=== PATIENT | male | born 1940 | race Caucasian/White ===

== ENCOUNTER 2016-07-23 11:14 | Inpatient (IN) | payer MEDICARE, BC ==
[2016-07-23] MEDS ORDERED: Piperac/Tazob 3.375 gm in NS* 3.375 GM/100 ML BAG IVPB ONE (11:34)
[2016-07-23 11:49] LABS: Hematocrit 51 % (42-52); Hemoglobin 16.2 g/dl (14.0-18.0); Mean Corpuscular HGB Conc 32 g/dl (31-36); Mean Corpuscular Hemoglobin 28 pg (27-31); Mean Corpuscular Volume 89 fL (80-94); Mean Platelet Volume 9 um3 (7.4-10.4); Red Blood Count 5.74 10^6/ul (4.0-5.4); Red Cell Distribution Width 15 % (10.5-15); White Blood Count 20.1 10^3/ul (3.5-10.8)
[2016-07-23 12:02] LABS: PCO2 Arterial 34 mmHg (35-45)
--- NOTE | 2016-07-23 12:02 | RAD ---
INDICATION: Short of breath COMPARISON: April 01, 2016 TECHNIQUE: An AP portable view obtained at 1130 hours is submitted. FINDINGS: Bones/Soft Tissues: There are no acute bony findings. Cardiomediastinal: The cardiomediastinal silhouette is normal. Lungs: There are no infiltrates. Pleura: There are no pleural effusions. Other: None IMPRESSION: NO ACTIVE DISEASE.
[2016-07-23 12:05] LABS: Albumin 3.8 g/dL (3.2-5.2); BUN/Creatinine Ratio 27.9 (8-20); C Reactive Protein 251.52 mg/L (< 5.00); EGFR African American 74.1 (>60); EGFR Non-African American 57.6 (>60); Potassium 3.2 mmol/L (3.5-5.0); Total Protein 8.8 g/dL (6.4-8.9)
[2016-07-23] MEDS ORDERED: NS 0.9% 1000 ML* 1,000 ML IV SCH (12:15)
[2016-07-23 12:16] LABS: Troponin I 0.08 ng/mL (<0.04)
[2016-07-23] MEDS ORDERED: Vancomycin(*) 1,000 MG in NS 0.9% 250 ML* 250 ML IVPB ONE (12:45)
--- NOTE | 2016-07-23 13:04 | ED ---
Kevan Scherer Adam, scribed for Ronan Dumont MD on 07/23/16 at 1134 . Respiratory - HPI Summary HPI Summary: Pt is a 76 year old male presenting with worsening congestion, cough, and SOB. He is nonverbal and Hx was obtained from pt's daughter as well as EMS. His daughter states that the congestion in his throat and chest has been worsening over the past week. He was seen at [facility] this weekend and his daughter states that he was afebrile and they did not suspect PNA. They discontinued all of his medications (for HTN, Parkinson's, and congestion) except for ASA because he has been having difficulty swallowing them and his daughter would like him to be moving towards more natural remedies. She states that his congestion and breathing were under control over the weekend but over the past 2 days the cough has grown worse and has begun producing thick green sputum. He came to the ED today after visiting Dr. Hackett's office for concerns about the congestion affecting his ability to breathe. EMS reports that the pt was tachycardic en route with o2 sats between 94 and 95. They deny fever. Pt's PMHx includes HTN, DM, Parkinson's, difficulty swallowing, RLS, and RAMIRO. Negative Hx of CHF. - History of Current Complaint Stated Complaint: SHORT OF BREATH Hx Obtained From: Family/Commercial Finance Manager, EMS Hx From Patient Unobtainable Due To: Other - Level 5 Caveat due to nonverbal patient Timing: Constant Initial Severity: Mild Current Severity: Moderate Character: Cough (Productive) Sputum Amount: Moderate Sputum Color: Green Aggravating Factor(s): Nothing Alleviating Factor(s): Nothing Associated Signs and Symptoms: SOB - Allergy/Home Medications Allergies/Adverse Reactions: Allergies Allergy/AdvReac Type Severity Reaction Status Date / Time No Known Allergies Allergy Verified 03/18/14 15:46 PMH/Surg Hx/FS Hx/Imm Hx Endocrine/Hematology History: Denies: Hx Diabetes, Hx Systemic Lupus Erythematosus Cardiovascular History: Reports: Hx Hypertension - mild Denies: Hx Congestive Heart Failure, Hx Pacemaker/ICD GI History: Comment Only: Other GI Disorders - PARKINSONS DISEASE History: Denies: Hx Dialysis, Hx Renal Disease Musculoskeletal History: Reports: Hx Back Problems - prior LB surgery, left him with L foot drop, Other Musculoskeletal History - parkinsons Denies: Hx Rheumatoid Arthritis Sensory History: Denies: Hx Hearing Aid Neurological History: Reports: Other Neuro Impairments/Disorders - parkinsons Psychiatric History: Reports: Hx Depression Denies: Hx Panic Disorder - Cancer History Hx Chemotherapy: No - Surgical History Surgery Procedure, Year, and Place: RIGHT ROTATOR CUFF SURGERY, back surgery in distant past Hx Anesthesia Reactions: No - Immunization History Date of Tetanus Vaccine: unk Date of Influenza Vaccine: unk Infectious Disease History: Denies: Hx Clostridium Difficile, Hx Hepatitis, Hx Human Immunodeficiency Virus (HIV), Hx of Known/Suspected MRSA, Hx Shingles, Hx Tuberculosis, Hx Known/ Suspected VRE, Hx Known/Suspected VRSA, History Other Infectious Disease - Family History Known Family History: Positive: Diabetes - per EMR, brother with positive hx of DM, Other - Per EMR, brother with positive hx of pancreatic CA - Social History Occupation: Retired Lives: With Family - Daughter Alcohol Use: Rare Hx Substance Use: No Substance Use Type: Reports: None Hx Tobacco Use: No Smoking Status (MU): Never Smoked Tobacco Review of Systems Negative: Fever Positive: Shortness Of Breath, Cough All Other Systems Reviewed And Are Negative: No - Comments Additional Review of Systems Comments: Level 5 Caveat due to nonverbal patient Physical Exam - Summary Physical Exam Summary: VITAL SIGNS: Reviewed. GENERAL: Patient is a well developed and nourished male with a chroninc stiff neck and with some distress secondary to the shortness of breath. He seems confused and he is not verbal at this point. He is sitting in a tripod position. HEAD AND FACE: Normocephalic and atraumatic. EYES: PERRLA, EOMI x 2 EARS: Hearing grossly intact. MOUTH: Dry oral mucosa. NECK: Supple, trachea is midline, no adenopathy, no JVD, no carotid bruit. CHEST: Symmetric, No intercostal or abdominal retraction, LUNGS: Diffuse bilateral crackles CVS: RRR,, S1 and S2 present, no murmurs or gallops appreciated. ABDOMEN: Soft, non-tender. No signs of distention. Positive BS. No rebound, no guarding, and no masses palpated. EXTREMITIES: FROM in all major joints, no edema, no cyanosis or clubbing. NEURO: Alert not oriented. (as per radha he has hx of Dementia) SKIN: Dry and warm Triage Information Reviewed: Yes Vital Signs On Initial Exam: Initial Vitals Temp Pulse Resp BP Pulse Ox 98.1 F 94 36 142/96 95 07/23/16 11:52 07/23/16 11:52 07/23/16 11:52 07/23/16 11:52 07/23/16 11:52 Vital Signs Reviewed: Yes Completion Of Physical Exam Limited Due To: Level 5 Diagnostics - Vital Signs Vital Signs Temp Pulse Resp BP Pulse Ox 07/23/16 11:52 98.1 F 94 36 142/96 95 - Laboratory Lab Results: Lab Results 07/23/16 07/23/16 07/23/16 Range/Units 11:32 11:32 11:32 WBC 20.1 H (3.5-10.8) 10^3/ul RBC 5.74 H (4.0-5.4) 10^6/ul Hgb 16.2 (14.0-18.0) g/dl Hct 51 (42-52) % MCV 89 (80-94) fL MCH 28 (27-31) pg MCHC 32 (31-36) g/dl RDW 15 (10.5-15) % Plt Count 374 (150-450) 10^3/ul MPV 9 (7.4-10.4) um3 Neut % (Auto) 90.7 H (38-83) % Lymph % (Auto) 4.4 L (25-47) % [place] % (Auto) 4.6 (1-9) % Eos % (Auto) 0 (0-6) % Baso % (Auto) 0.3 (0-2) % Absolute Neuts (auto) 18.3 H (1.5-7.7) 10^3/ul Absolute Lymphs (auto) 0.9 L (1.0-4.8) 10^3/ul Absolute Monos (auto) 0.9 H (0-0.8) 10^3/ul Absolute Eos (auto) 0 (0-0.6) 10^3/ul Absolute Basos (auto) 0.1 (0-0.2) 10^3/ul Absolute Nucleated RBC 0.03 10^3/ul Nucleated RBC % 0.1 APTT (26.0-36.3) seconds ABG pH (7.35-7.45) ABG pCO2 (35-45) mmHg ABG pO2 (80-100) mmHg ABG HCO3 (19-31) mmol/L ABG O2 Saturation (95-98) % ABG Base Excess (-2.0-2.0) O2 Delivery Device Sodium Pending Potassium 3.2 L (3.5-5.0) mmol/L Chloride 120 H (101-111) mmol/L Carbon Dioxide 28 (22-32) mmol/L Anion Gap Pending BUN 34 H (6-24) mg/dL Creatinine 1.22 H (0.67-1.17) mg/dL Est GFR ( Amer) 74.1 (>60) Est GFR (Non-Af Amer) 57.6 (>60) BUN/Creatinine Ratio 27.9 H (8-20) Glucose 108 H (70-100) mg/dL Lactic Acid 1.6 (0.5-2.0) mmol/L Calcium 10.0 (8.6-10.3) mg/dL Total Bilirubin 1.00 (0.2-1.0) mg/dL AST 61 H (13-39) U/L ALT 48 (7-52) U/L Alkaline Phosphatase 111 H (34-104) U/L Total Creatine Kinase 283 H (10-223) U/L CK-MB (CK-2) Pending Troponin I Pending C-Reactive Protein 251.52 H (< 5.00) mg/L Total Protein 8.8 (6.4-8.9) g/dL Albumin 3.8 (3.2-5.2) g/dL Globulin 5.0 H (2-4) g/dL Albumin/Globulin Ratio 0.8 L (1-3) 07/23/16 07/23/16 Range/Units 11:32 11:37 WBC (3.5-10.8) 10^3/ul RBC (4.0-5.4) 10^6/ul Hgb (14.0-18.0) g/dl Hct (42-52) % MCV (80-94) fL MCH (27-31) pg MCHC (31-36) g/dl RDW (10.5-15) % Plt Count (150-450) 10^3/ul MPV (7.4-10.4) um3 Neut % (Auto) (38-83) % Lymph % (Auto) (25-47) % [place] % (Auto) (1-9) % Eos % (Auto) (0-6) % Baso % (Auto) (0-2) % Absolute Neuts (auto) (1.5-7.7) 10^3/ul Absolute Lymphs (auto) (1.0-4.8) 10^3/ul Absolute Monos (auto) (0-0.8) 10^3/ul Absolute Eos (auto) (0-0.6) 10^3/ul Absolute Basos (auto) (0-0.2) 10^3/ul Absolute Nucleated RBC 10^3/ul Nucleated RBC % APTT 38.2 H (26.0-36.3) seconds ABG pH 7.44 (7.35-7.45) ABG pCO2 34 L (35-45) mmHg ABG pO2 125 H (80-100) mmHg ABG HCO3 24.5 (19-31) mmol/L ABG O2 Saturation 99.3 H (95-98) % ABG Base Excess -0.5 (-2.0-2.0) O2 Delivery Device 5 lnc Sodium Potassium (3.5-5.0) mmol/L Chloride (101-111) mmol/L Carbon Dioxide (22-32) mmol/L Anion Gap BUN (6-24) mg/dL Creatinine (0.67-1.17) mg/dL Est GFR ( Amer) (>60) Est GFR (Non-Af Amer) (>60) BUN/Creatinine Ratio (8-20) Glucose (70-100) mg/dL Lactic Acid (0.5-2.0) mmol/L Calcium (8.6-10.3) mg/dL Total Bilirubin (0.2-1.0) mg/dL AST (13-39) U/L ALT (7-52) U/L Alkaline Phosphatase (34-104) U/L Total Creatine Kinase (10-223) U/L CK-MB (CK-2) Troponin I C-Reactive Protein (< 5.00) mg/L Total Protein (6.4-8.9) g/dL Albumin (3.2-5.2) g/dL Globulin (2-4) g/dL Albumin/Globulin Ratio (1-3) Result Diagrams: 07/23/16 11:32 07/23/16 11:32 Lab Statement: Any lab studies that have been ordered have been reviewed, and results considered in the medical decision making process. - Radiology CXR Radiology Interpretation Completed By: Radiologist - IMPRESSION: NO ACTIVE DISEASE. - EKG 11:17 Cardiac Rate: NL - 99 BPM EKG Rhythm: Sinus Rhythm - Normal EKG Interpretation: No ST elevations, RBBB. - Additional Comments Diagnostic Additional Comments: Troponin I - 0.08 Sodium - 161 Influenza A (Rapid) - Negative Influenza B (Rapid) - Negative Disposition - Course Course Of Treatment: Pt is a 76 year old male presenting with worsening congestion, cough, and SOB. He is nonverbal and Hx was obtained from pt's daughter as well as EMS. His daughter states that the congestion in his throat and chest has been worsening over the past week. He was seen at [place] this weekend and his daughter states that he was afebrile and they did not suspect PNA. They discontinued all of his medications (for HTN, Parkinson's, and congestion) except for ASA because he has been having difficulty swallowing them and his daughter would like him to be moving towards more natural remedies. She states that his congestion and breathing were under control over the weekend but over the past 2 days the cough has grown worse and has begun producing thick green sputum. He came to the ED today after visiting Dr. Hackett's office for concerns about the congestion affecting his ability to breathe. EMS reports that the pt was tachycardic en route with o2 sats between 94 and 95. They deny fever. Pt's PMHx includes HTN, DM, Parkinson's, difficulty swallowing, RLS, and RAMIRO. Negative Hx of CHF. Blood work shows WBC count of 20.1 without bands. ABG shows pH of 7.44, pCO2 of 34, and pO2 of 125. CMP shows potassium of 3.2. Sodium is 161. Therefore the pt will continue with IV fluids. BUN is 34 and creatinine is 1.22, consistent with acute renal insufficiency. CRP is 251.52, BNP is 212. Troponin I is 0.08, therefore we also have to rule out ACS. CXR shows no active disease. EKG shows NSR, 99 BPM, no ST elevations, RBBB. In the ED course we started 2 IV accesses. Pt was placed on environmental monitoring specialist. Pt does not have any exacerbation of CHF and therefore he was hydrated with IV fluids. He was started on Zosyn and Vancomycin since I believe that he has aspiration pneumonitis. The pt also was started with potassium IV seeing as he has hypokalemia. Influenza A and B are negative. The patient contiues to have increased RR, his O2 sat is 100 in non rebreathing mask therfore I discussed my physical exam and findings with Dr. Denny (ICU) who accepted the patient for admission. - Differential Dx - Cardiopulmonary Differential Diagnoses - Cardiopulmonary: Airway Obstruction, Aspiration, Bronchitis, CHF, Hypoxia, Lower Resp Infection, Pulmonary Edema - Diagnoses Provider Diagnoses: Aspiration pneumonitis, Hypernatremia, Elevated troponin, rule out [place], Acute renal failure - Physician Notifications Discussed Care Of Patient With: Dr. Denny (ICU) at 12:45. Patient is accepted for admission. Discharge - Discharge Plan Condition: Improved Disposition: ADMITTED TO [facility] The documentation as recorded by the Kevan pepe Adam accurately reflects the service I personally performed and the decisions made by me, Ronan Dumont MD.
[2016-07-23] MEDS ORDERED: NS 0.9% 1000 ML* 3,000 ML IV ONE (14:25)
[2016-07-23] MEDS ORDERED: fentaNYL* 50 MCG/ML 2 ML VIAL (100 MCG VIAL) ONE ×2 (14:33→14:35)
[2016-07-23] MEDS ORDERED: Propofol* 0 ML ONE (14:33)
[2016-07-23] MEDS: NS 0.9% 1000 ML* 3,000 ML IV ONE ×4 (14:35→16:28)
[2016-07-23] MEDS: KCL 10 MEQ/50 ML IVPREMIX* 10 MEQ/50 ML BAG IV SCH (17:44)
--- NOTE | 2016-07-23 18:28 | HP ---
H&P (Free Text) History and Physical: CRITICAL CARE MEDICINE DATE: 07/23/16 TIME: 1400 PRIMARY CARE PROVIDER: Jarvis Reid REFERRING PROVIDER: Tim REASON/CHIEF COMPLAINT: sob HISTORY OF PRESENT ILLNESS: 76 M with worsening cogestion, cough and sob since weekend. Long h/o parkinson's disease. Seen at [place] on Thursday for same ailments. Daughter explains his Ua was ok, but remembers positive ketones. Did not think he had pna. Brought into ED today and evaluated with significant upeer airway secretions, labored resp, severely dehydrated and placed on HFo2, started on IVF and ccm alerted to care. Pt lethargic and encephalopathic from his baseline coherence and cannot communicate capacity. Daughter is proxy and ED staff was informed of a "do everything" status. Brought up to ICU with plan to intubate due to status and attempted to reach pts daughter who went out to move her car. She re-presented and we discussed my concerns, explaining his condition and plans of care. She refused intubation at the time; she did not beleive he needs the procedures. Again I explained my role, my rationale and she still declined. I attempted further to educate and we discussed supportive care with HFO2 as a DNI then. We discussed my best medcial treatment and medical opinion for need of intubation and all factors involved. Otherwise consider DNI. She refused intubation but also refused placing DNI. We discussed repetitively and respectfully but she couldn't consent either way. Her arrived and discussed as a group. Only consensus was for full code in event of arrest, no urgent intubation right now but maybe later if they are at bedside or maybe if we feel it is needed when they aren't present. I attempted to explain the poor communication and plan of care that this provides. REVIEW OF SYSTEMS: As per HPI. PAST MEDICAL HISTORY: As per HPI. Dementia. RLS MEDICATIONS: Reviewed. ALLERGIES: Reviewed. SOCIAL HISTORY: Reviewed. FAMILY HISTORY: Noncontributory at present. PHYSICAL EXAM: Vital Signs: Reviewed. Neurologic: bradykinesis, expressive aphagia and rigidity HEENT: anicteric, reactive. severe dry mm Cardiovascular: S1 S2 Respiratory: rhonchi b/l but no wheeze; poor excursion. rate in 30s. weak cough Abdomen: paradoxical resp at times and other times just forced exhalation. Extremities: no edema. deconditioning. Access: per LABS: Reviewed. IMAGING: Reviewed. CXR with some diffuse airway disease but no blossumed pna MEDICATIONS: Reviewed. ASSESSMENT: 76 M Acute aspiration pneumonitis Precipitated by perhaps viral or URI. No clear bacterial pna, but empiric treatment. ABG revealing compensation but his wob is too high and metabolic demands remain elevated. Acute hypoxic resp failure Severe dehydrated and needs vascular and cellular volume. Acute renal failure with Cr more the 2x his normal without much muscle mass Hypovolemic hypernatremia. Dysphagia PLAN: Neurologic: tolerable but will need to resume his oupt meds, but cannot at this time due to swallow. Cardiovascular: 6L NS and then can taper to 1/2NS as long as intravascular met. Want to avoid pulm overlaod but need to salvage kidneys. Respiratory: Needs intubation and MV for best advantage to overcome his current ailments given his extraneous wob with pneumonitis that is likely to worsening airspace post hydration, thick secretions and high airway resistance with poor cough and clearance. Have already nt copious secretions. Set up for airway lost as he has poor protection. Granted his baseline is unlikely to be pristine but he is overly vexed at this juncture and VO2 is quite high. ON high flow and can continue at proxy request but medical advocacy is for early intubation. support with nebs as needed. Gastrointestinal: npo. swallow weak. Renal/Metabolic: dry with hypovolemic hypernatremia. Infectious Disease: zosyn and vanco in ed. flu neg. keep zosyn for coverage as of now although more likely not an abx fix. Hematology: concentrated. Endocrine: no role for steroids yet. Musculoskeletal: weak. skin precautions. Psych/Social: as above. Supportive and preventative care as ordered. VTE prophylaxis: heparin Disposition: ICU Code Status: Full presently Critical Care Time: 75min Cliff Denny DO
[2016-07-23] MEDS: NS 0.9% w/ 40 Meq KCL 1000 ML* 1,000 ML IV SCH (19:59)
[2016-07-23] MEDS: Piperac/Tazob 3.375 gm in NS* 3.375 GM/100 ML BAG IVPB SCH (19:59)
[2016-07-23 20:27] LABS: Urine Bilirubin Negative (Negative); Urine Glucose Negative (Negative); Urine Nitrite Negative (Negative)
[2016-07-24] MEDS ORDERED: Lidocaine 2% JELLY* 6 ML JELLY TOPICAL ONE (02:00)
[2016-07-24] MEDS: Piperac/Tazob 3.375 gm in NS* 3.375 GM/100 ML BAG IVPB SCH ×3 (04:34→19:58)
[2016-07-24] MEDS: NS 0.9% w/ 40 Meq KCL 1000 ML* 1,000 ML IV SCH (04:34)
[2016-07-24 05:41] LABS: Hematocrit 34 % (42-52); Hemoglobin 10.7 g/dl (14.0-18.0); Mean Corpuscular HGB Conc 32 g/dl (31-36); Mean Corpuscular Hemoglobin 28 pg (27-31); Mean Corpuscular Volume 90 fL (80-94); Mean Platelet Volume 9 um3 (7.4-10.4); Red Blood Count 3.77 10^6/ul (4.0-5.4); Red Cell Distribution Width 15 % (10.5-15); White Blood Count 17.5 10^3/ul (3.5-10.8)
[2016-07-24 05:55] LABS: Albumin 2.3 g/dL (3.2-5.2); BUN/Creatinine Ratio 31.3 (8-20); Calcium 7.3 mg/dL (8.6-10.3); EGFR African American 115.5 (>60); EGFR Non-African American 89.8 (>60); Globulin 2.9 g/dL (2-4); Magnesium 2.1 mg/dL (1.9-2.7); Phosphorus 3.1 mg/dL (2.5-5.0); Potassium 3.4 mmol/L (3.5-5.0); Total Bilirubin 0.5 mg/dL (0.2-1.0); Total Protein 5.2 g/dL (6.4-8.9)
[2016-07-24] MEDS ORDERED: NS 0.45% IVPB SCH (07:00)
[2016-07-24] MEDS ORDERED: POTASSIUM CHLORIDE IVPB SCH (07:00)
[2016-07-24 09:54] LABS: FIO2 90
[2016-07-24 09:58] LABS: PCO2 Arterial 33 mmHg (35-45)
[2016-07-24] MEDS ORDERED: D5W KCl 40 MEQ 1000 ML* 1,000 ML IV SCH ×2 (10:00)
[2016-07-24] MEDS: D5W KCl 40 MEQ 1000 ML* 1,000 ML IVPB SCH ×2 (11:15→21:02)
--- NOTE | 2016-07-24 11:36 | PN ---
Progress Note - Progress Note Note: CRITICAL CARE MEDICINE DATE: 07/24/16 TIME: 900 SUBJECTIVE: Patient seen and examined. Vapotherm 40lpm 90%. PHYSICAL EXAM: Vital Signs: Reviewed. Neurologic: bradykinesis, expressive aphagia and rigidity still; able to squeeze more consistently with left hand to commands. HEENT: anicteric, reactive. dry mm Cardiovascular: S1 S2 Respiratory: fine dry rales L>R, no wheeze. Still tachynic with rapid shallow resp pattern but with less airway resistance. Abdomen: less forced abd exhalation. nt Extremities: no edema. deconditioned. Access: per LABS: Reviewed. IMAGING: Reviewed. MEDICATIONS: Reviewed. ASSESSMENT: 76 M Acute aspiration pneumonitis Precipitated by perhaps viral or URI. No clear bacterial pna, but empiric treatment. ABG revealing compensation but his wob is still quite high but at least meeting metabolic demands at present. Acute hypoxic resp failure vascular volume better and need to give further cellular water without overloading Acute renal failure better Hypovolemic hypernatremia. Dysphagia PLAN: Neurologic: tolerating but still has a lot of work. still unable to take po rx Cardiovascular: change to D5W and see how he handles. SB with autonomics less but asym. tele. Respiratory: Still with high wob and repeat ABG still showing he is compensating his pH (hyperchloremic acidosis not helping his efforts) but with a component of resp alkalosis sec to thrist, anxiet, pain, or even hypoxic drive. A-a gradient is dismal while he is on 40L at 90% O2. Again explained to pts daughter and her at bedside his dynamics and still advocate intubation needs, but we are supporting the desire for him to thrive with his present support. Gastrointestinal: npo. swallow will remain weak and may eventually need ngt or peg, but I imagine family will resist, but not a necessary discussion yet. sup Renal/Metabolic: Cr more dilute. Some Uout. needs water. replete K and let Cl dissipate. Infectious Disease: zosyn continued for now with cx neg pna. Hematology: diluted. Endocrine: no role for steroids currently. Musculoskeletal: weak. skin precautions. Psych/Social: family at bedside updated. Supportive and preventative care as ordered. VTE prophylaxis: heparin Disposition: ICU Code Status: Full presently Critical Care Time: 35min Cliff Denny DO
[2016-07-24] MEDS: Pantoprazole IV* 40 MG IV SCH (12:05)
[2016-07-24] MEDS: Heparin VIAL(*) 5000 UNITS/ML VIAL (FIVE THOUSAND) SUBCUT SCH ×2 (13:02→22:20)
[2016-07-24] MEDS: Acetaminophen SUPP* 650 MG SUPP PR PRN ×2 (13:03→20:10)
--- NOTE | 2016-07-24 15:19 | PN ---
Progress Note - Progress Note Note: CRITICAL CARE MEDICINE DATE: 07/24/16 TIME: 1500 Pt about the same. More sleepy. Daughter states he is always a heavy sleeper. sats ok and rr tolerable but very low volumes still. Hr with marked shavonne cardia but bp well and does awaken to to tactile and still squeezes hand. Can still try to slowly titrate O2. Bradycardia asym. Still very tenuous position. Daughter at bedside and discussed still current tx. Critical Care Time: 10min FMaicol Denny, DO
[2016-07-25] MEDS: Acetaminophen SUPP* 650 MG SUPP PR PRN ×3 (01:38→20:10)
[2016-07-25] MEDS: Piperac/Tazob 3.375 gm in NS* 3.375 GM/100 ML BAG IVPB SCH ×3 (03:58→19:37)
[2016-07-25] MEDS: Heparin VIAL(*) 5000 UNITS/ML VIAL (FIVE THOUSAND) SUBCUT SCH ×3 (05:47→22:05)
[2016-07-25 06:02] LABS: Hematocrit 34 % (42-52); Hemoglobin 10.7 g/dl (14.0-18.0); Mean Corpuscular HGB Conc 32 g/dl (31-36); Mean Corpuscular Hemoglobin 28 pg (27-31); Mean Corpuscular Volume 89 fL (80-94); Mean Platelet Volume 9 um3 (7.4-10.4); Red Blood Count 3.82 10^6/ul (4.0-5.4); Red Cell Distribution Width 15 % (10.5-15); White Blood Count 16.1 10^3/ul (3.5-10.8)
[2016-07-25 06:18] LABS: Calcium 7.9 mg/dL (8.6-10.3); EGFR African American 120.6 (>60); EGFR Non-African American 93.7 (>60); Magnesium 2.1 mg/dL (1.9-2.7); Phosphorus 2.1 mg/dL (2.5-5.0); Potassium 3.9 mmol/L (3.5-5.0)
[2016-07-25] MEDS: D5W KCl 40 MEQ 1000 ML* 1,000 ML IVPB SCH ×2 (08:06→17:33)
--- NOTE | 2016-07-25 09:49 | PN ---
Progress Note - Progress Note Note: CRITICAL CARE MEDICINE DATE: 07/25/16 TIME: 825 SUBJECTIVE: Patient seen and examined. Vapotherm 40lpm 70%. PHYSICAL EXAM: Vital Signs: Reviewed. Neurologic: bradykinesis, expressive aphasia and rigidity still; squeeze well with left hand to commands. HEENT: anicteric, reactive. mmm now with increased secretions. Cardiovascular: S1 S2 Respiratory: rhonchi b/l, no wheeze. Less tachynic but remains with shallow resp pattern. oral suctioning. Abdomen: soft, nt Extremities: dep ue edema. deconditioned. Access: per LABS: Reviewed. IMAGING: Reviewed. MEDICATIONS: Reviewed. ASSESSMENT: 76 M Acute aspiration pneumonitis Acute hypoxic resp failure Acute renal failure better Hypovolemic hypernatremia. Dysphagia Parkinson's disease PLAN: Neurologic: tolerating. off his meds Cardiovascular: D5W cotinued today. autonmic shavonne stable. Respiratory: wob pace a bit more tolerable but now with moistened secretions remaining with pulm toilet needs. Will continue to remain with airway risk. oral/nt suctioning prn. Can wean flow a bit today and allow him to maintain work. Gastrointestinal: npo still. unlikely to have adequete swallow for some time, but given his current resp status will hold off another day prior to ng, but hopefully if breathing and secretions remain stable into tomorrow, then would anticipate ko feed tube needs and then to have official swallow eval next week. sup Renal/Metabolic: Cr ok. Na improving well. Keep water today. replete K, phos. Infectious Disease: zosyn continued for now with cx neg pna. Hematology: diluted; stable. Endocrine: no role for steroids currently. Musculoskeletal: weak. skin precautions. Psych/Social: will update family; again ICU course likely prolonged from avoidance of ett but continued at present sec to proxy request. Supportive and preventative care as ordered. VTE prophylaxis: heparin Disposition: ICU Code Status: Full presently Critical Care Time: 35min Cliff Denny DO
[2016-07-25] MEDS: Pantoprazole IV* 40 MG IV SCH (12:15)
[2016-07-26] MEDS: Piperac/Tazob 3.375 gm in NS* 3.375 GM/100 ML BAG IVPB SCH ×3 (04:56→19:36)
[2016-07-26] MEDS: D5W KCl 40 MEQ 1000 ML* 1,000 ML IVPB SCH ×2 (04:56→14:22)
[2016-07-26] MEDS: Heparin VIAL(*) 5000 UNITS/ML VIAL (FIVE THOUSAND) SUBCUT SCH ×3 (04:59→22:43)
[2016-07-26 06:01] LABS: BUN/Creatinine Ratio 19.5 (8-20); Calcium 7.9 mg/dL (8.6-10.3); Phosphorus 2.3 mg/dL (2.5-5.0); Potassium 4.3 mmol/L (3.5-5.0)
[2016-07-26] MEDS: Oral Rinse (Biotene)(NF) 237 ML ORAL RINSE BTL MT PRN ×2 (06:14→17:30)
--- NOTE | 2016-07-26 10:55 | PN ---
Progress Note - Progress Note Note: CRITICAL CARE MEDICINE DATE: 07/26/16 TIME: 830 SUBJECTIVE: Patient seen and examined. PHYSICAL EXAM: Vital Signs: Reviewed. Neurologic: stable about his icu baseline HEENT: anicteric, reactive. mmm with secretions Cardiovascular: S1 S2 Respiratory: still with rhonchi b/l, no wheeze. nasal trumpet back in place for nt suction Abdomen: soft, nt Extremities: dep edema. deconditioned. Access: per LABS: Reviewed. IMAGING: Reviewed. MEDICATIONS: Reviewed. ASSESSMENT: 76 M Acute aspiration pneumonitis Acute hypoxic resp failure Acute renal failure better Hypovolemic hypernatremia. Dysphagia Advanced parkinson's disease PLAN: Neurologic: tolerating. but his Parkinsons meds were dcd by pcp and we haven't restarted do to his condition Cardiovascular: D5W continued as is for another day. Respiratory: wob holding. still with copious secretions. weaning O2. will have to work through this. Gastrointestinal: npo. place cor aubrey and start tf. Re-eval swallow on Thursday. ? peg needs. Slow process here and debilitating self with this proxy chosen path. sup Renal/Metabolic: Cr ok. Na improving well. Keep water today. replete K, phos. Infectious Disease: zosyn short course for pna Hematology: stable. Endocrine: no steroids needed Musculoskeletal: weak. skin precautions. Pt Psych/Social: daughter has been updated throughout Supportive and preventative care as ordered. VTE prophylaxis: heparin Disposition: ICU, slow progress Code Status: Full presently Critical Care Time: 30min Cliff Denny DO
--- NOTE | 2016-07-26 12:08 | RAD ---
INDICATION: Nasogastric tube placement. COMPARISON: Comparison is made with a prior chest x-ray study from July 23, 2016. TECHNIQUE: A portable view of the chest was obtained. FINDINGS: There is a nasogastric tube present which projects over the midline over the upper abdomen possibly within a hiatal hernia or in the distal esophagus. The heart is within normal limits in size. The lungs are underinflated. There are small infiltrates at both lung bases which appear new. There is suggestion of trace bilateral pleural effusions. IMPRESSION: 1. NEW BIBASILAR INFILTRATES AND TRACE BILATERAL PLEURAL EFFUSIONS. 2. STATUS POST NASOGASTRIC TUBE PLACEMENT. THE DISTAL PORTION OF THE CATHETER PROJECTS OVER THE MIDLINE IN THE UPPER ABDOMEN POSSIBLY WITHIN THE DISTAL ESOPHAGUS OR WITHIN A HIATAL HERNIA.
[2016-07-26] MEDS: Pantoprazole IV* 40 MG IV SCH (14:56)
[2016-07-26] MEDS: Acetaminophen SUPP* 650 MG SUPP PR PRN (15:40)
[2016-07-26] MEDS: Potassium & Sodium Phos 250MG* = 1 PACKET NG TUBE SCH (21:00)
[2016-07-27] MEDS: D5W KCl 40 MEQ 1000 ML* 1,000 ML IVPB SCH (00:23)
[2016-07-27] MEDS: Morphine INJ* 2 MG/ML 1 ML SYRINGE IV PRN ×3 (02:28→09:09)
[2016-07-27] MEDS: Piperac/Tazob 3.375 gm in NS* 3.375 GM/100 ML BAG IVPB SCH ×3 (04:03→20:09)
[2016-07-27] MEDS: Heparin VIAL(*) 5000 UNITS/ML VIAL (FIVE THOUSAND) SUBCUT SCH ×3 (05:08→20:42)
[2016-07-27 05:49] LABS: Hematocrit 36 % (42-52); Hemoglobin 11.4 g/dl (14.0-18.0); Mean Corpuscular HGB Conc 32 g/dl (31-36); Mean Corpuscular Hemoglobin 28 pg (27-31); Mean Corpuscular Volume 88 fL (80-94); Mean Platelet Volume 9 um3 (7.4-10.4); Red Blood Count 4.07 10^6/ul (4.0-5.4); Red Cell Distribution Width 14 % (10.5-15); White Blood Count 13.9 10^3/ul (3.5-10.8)
[2016-07-27 06:05] LABS: Albumin 2.2 g/dL (3.2-5.2); BUN/Creatinine Ratio 18.1 (8-20); Calcium 7.7 mg/dL (8.6-10.3); EGFR African American 136.1 (>60); EGFR Non-African American 105.9 (>60); Globulin 3.2 g/dL (2-4); Magnesium 1.9 mg/dL (1.9-2.7); Phosphorus 2.2 mg/dL (2.5-5.0); Potassium 3.5 mmol/L (3.5-5.0); Total Bilirubin 0.4 mg/dL (0.2-1.0); Total Protein 5.4 g/dL (6.4-8.9)
[2016-07-27] MEDS ORDERED: Lansoprazole SOLUTAB* 30 MG G TUBE SCH (09:00)
[2016-07-27] MEDS: Potassium & Sodium Phos 250MG* = 1 PACKET NG TUBE SCH (09:04)
[2016-07-27] MEDS: Oral Rinse (Biotene)(NF) 237 ML ORAL RINSE BTL MT PRN (09:26)
[2016-07-27] MEDS ORDERED: Famotidine SUSP* 40 MG/5 ML ORAL.SUSP G TUBE ONE (10:31)
--- NOTE | 2016-07-27 12:02 | PN ---
Critical Care Services: Is unresponsive this AM, which apparently is no change from mental status yesterday. On pip/tazo for presumed pneumonia. Vital Signs: Temp Pulse Resp BP SpO2 FiO2 99.9 F 68 30 173/86 100 50 Physical Exam: Gen:As mentioned. HEENT:Oropharynx clear. No facial assymetry Lungs:clear (!) Cardiac: Reg rhythm Abdomen:Not distended. Extremities:stiff. No cyanosis or edema. Fluid Balance (Past 24 Hours): 07/27/16 06:59 Intake Total 3335 Output Total 1725 Balance +1610 Weight 167 lb Intake: IV Fluids 1216 ABX - ZOSYN D5W with 40 kcl 1216 NS IVPB 1036 ABX - ZOSYN 254 D5W with 40 kcl 782 NS Oral 0 Tube Feeding 963 Tube Feeding Flush Amount 120 Output: Phillip 1725 Other: Date of Last Bowel 07/27/2016 Movement # Bowel Movements 3 Estimated Stool Amount Medium Labs: 07/27/16 07/27/16 05:40 05:40 WBC 13.9 H Hgb 11.4 L Hct 36 L Plt Count 185 Sodium 147 Potassium 3.5 Chloride 124 Carbon Dioxide 19 Anion Gap 4 BUN 13 Creatinine 0.72 Glucose 116 Calcium 7.7 Phosphorus 2.2 Magnesium 1.9 Total Bilirubin 0.40 AST 35 ALT 25 Alkaline Phosphatase 70 Total Protein 5.4 L Albumin 2.2 L Globulin 3.2 Albumin/Globulin Ratio 0.7 L NOTE: Hyperchloremic metabolic acidosis. Studies: Portable CXR: Bibasilar infiltrates. 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 There is a probable aspiration pneumonia, with Klebsiella as a potential source (routine sputum cultures may not be reliable). Thus problem (aspiration pneumonia) is likely to recur, given underlying high risk of aspiration. Plan: Will speak with patient's daughter (health care proxy) about future plan of care.
[2016-07-27] MEDS: Ketorolac INJ* 15 MG/ML 1 ML VIAL IV PUSH PRN (20:42)
[2016-07-28] MEDS: Piperac/Tazob 3.375 gm in NS* 3.375 GM/100 ML BAG IVPB SCH ×3 (04:38→21:14)
[2016-07-28 05:58] LABS: Hematocrit 33 % (42-52); Hemoglobin 10.7 g/dl (14.0-18.0); Mean Corpuscular HGB Conc 32 g/dl (31-36); Mean Corpuscular Hemoglobin 28 pg (27-31); Mean Corpuscular Volume 87 fL (80-94); Mean Platelet Volume 9 um3 (7.4-10.4); Red Blood Count 3.82 10^6/ul (4.0-5.4); Red Cell Distribution Width 14 % (10.5-15); White Blood Count 14.3 10^3/ul (3.5-10.8)
[2016-07-28 06:08] LABS: BUN/Creatinine Ratio 23.1 (8-20); Calcium 7.5 mg/dL (8.6-10.3); EGFR African American 153.2 (>60); EGFR Non-African American 119.1 (>60); Potassium 3.2 mmol/L (3.5-5.0)
--- NOTE | 2016-07-28 08:43 | PN ---
Critical Care Services: No new issues overnight. Has been afebrile, and oxygenation is now adequate on room air. Vital Signs: Temp Pulse Resp BP SpO2 FiO2 98.2 F 56 33 133/56 100 21 Physical Exam: Gen:Patient is severely bradykinetic. Will open eyes to verbal command, but very slowly. HEENT: Breaths with mouth wide open.No facial assymetry Lungs:Clear Abdomen:Not distended Extremities:Warm. No cyanosis or edema. 4+rigidity of all extremities Fluid Balance (Past 24 Hours): 07/28/16 06:59 Intake Total 1804 Output Total 1750 Balance +54 Weight 169 lb Intake: IV Fluids 117 ABX - ZOSYN 117 D5W with 40 kcl IVPB 139 ABX - ZOSYN 139 D5W with 40 kcl Oral Tube Feeding 1088 Tube Feeding Flush Amount 460 Output: Phillip 1750 Other: # Bowel Movements 1 Estimated Stool Amount Small Labs: 07/28/16 07/28/16 05:35 05:35 WBC 14.3 Hgb 10.7 L Hct 33 L Plt Count 184 Sodium 148 H Potassium 3.2 L Chloride 120 H Carbon Dioxide 22 BUN 15 Creatinine 0.65 L Glucose 148 H Calcium 7.5 L NOTE: WBC count was 20.1 on admission. Studies: None today Nutrition: Tube feedings. Impression: 1. Klebsiella pneumonia - improving by clinical measures. 2. Advanced Parkinsons 3. Hyparnatremia/hypokalemia - Doubt hyparadrenal state. Plan: 1. Restart Sinemet () TID via feeding tube. 2. Continue Zosyn for a total of 7-10 days. Can probably switch to oral antibiotic when leukocytosis resolves. 3. Since patient is at risk for recurrent aspiration pneumonia, we should consider oral decontamination - can start with chlorhexidine (nonabsorbable antibiotics also a consideration). 4. Correct hypokalemia with IV KCL 5. Will transfer out of ICU.
[2016-07-28] MEDS: Heparin VIAL(*) 5000 UNITS/ML VIAL (FIVE THOUSAND) SUBCUT SCH ×3 (08:47→21:16)
[2016-07-28] MEDS: Famotidine SUSP* 40 MG/5 ML ORAL.SUSP G TUBE SCH (08:47)
[2016-07-28] MEDS: Ketorolac INJ* 15 MG/ML 1 ML VIAL IV PUSH PRN (08:47)
[2016-07-28] MEDS: KCL 20 MEQ/100 ML IVPREMIX* 20 MEQ/100 ML BAG IV SCH ×2 (08:48→10:24)
[2016-07-28] MEDS: Oral Rinse (Biotene)(NF) 237 ML ORAL RINSE BTL MT PRN (08:48)
[2016-07-28] MEDS ORDERED: Carbidopa/Levodop 25/100 MG TAB(*) G TUBE SCH (09:00)
[2016-07-28] MEDS: Chlorhexidine MOUTHWASH 0.12%* 15 ML UDC TOPICAL SCH ×4 (10:24→20:55)
--- NOTE | 2016-07-28 11:32 | PN ---
Progress Note - Progress Note Note: ADDENDUM: Sinemet has been discontinued because, according to patient's daughter , it wasn't working, and was discontinued about one month prior to admission. Will get neuro evaluation for management options. Will also send ENT consult to evaluate swallowing (which was to be performed just prior to admission).
[2016-07-28 16:21] LABS: PCO2 Arterial 37 mmHg (35-45)
[2016-07-28 20:09] LABS: Hematocrit 36 % (42-52); Hemoglobin 11.2 g/dl (14.0-18.0); Mean Corpuscular HGB Conc 32 g/dl (31-36); Mean Corpuscular Hemoglobin 28 pg (27-31); Mean Corpuscular Volume 88 fL (80-94); Mean Platelet Volume 9 um3 (7.4-10.4); Red Blood Count 4.06 10^6/ul (4.0-5.4); Red Cell Distribution Width 14 % (10.5-15); White Blood Count 13.4 10^3/ul (3.5-10.8)
[2016-07-28 20:11] LABS: PCO2 Arterial 31 mmHg (35-45)
[2016-07-28 20:28] LABS: BUN/Creatinine Ratio 25.4 (8-20); Calcium 7.8 mg/dL (8.6-10.3); EGFR African American 171.3 (>60); EGFR Non-African American 133.2 (>60)
[2016-07-28] MEDS ORDERED: Piperac/Tazob 3.375 gm in NS* 3.375 GM/100 ML BAG IVPB ONE (20:30)
[2016-07-28 20:31] LABS: Potassium 4.4 mmol/L (3.5-5.0)
--- NOTE | 2016-07-28 20:41 | RAD ---
INDICATION: Short of breath COMPARISON: July 26, 2016 TECHNIQUE: An AP portable view obtained at 2039 hours is submitted. FINDINGS: Bones/Soft Tissues: There are no acute bony findings. ] And nasogastric tube coiled in the body the stomach Cardiomediastinal: The cardiomediastinal silhouette is normal. Lungs: There is no focal consolidation. There is a diffuse increase interstitial markings. Pleura: Small bilateral effusions.. Other: None IMPRESSION: MILD DIFFUSE INCREASE IN INTERSTITIAL MARKINGS WITH SMALL BILATERAL PLEURAL EFFUSIONS. THERE MAY BE A COMPONENT OF MILD INTERSTITIAL CONGESTION.
[2016-07-28] MEDS ORDERED: hydrALAZINE IV* 20 MG/ML VIAL ONE (22:18)
[2016-07-28] MEDS: hydrALAZINE IV* 20 MG/ML VIAL IV SLOW PU PRN (22:20)
[2016-07-28 22:46] LABS: FIO2 100
[2016-07-28 22:49] LABS: PCO2 Arterial 28 mmHg (35-45)
--- NOTE | 2016-07-28 23:29 | PN ---
Progress Note - Progress Note Note: Patient transferred from floor back to ICU this evening for hypoxia and increase work of breathing. Patient has been on vapotherm, CXR showed interstitial edema and ABG showed respiratory alkalosis. Patient failed swallow eval and suspect he aspirated during that time which lead to respiratory failure. Harry and Dr. Putnam discussed with daughter, HCP, at length their concern for his respiratory status and recommendation for intubation. We had a conference call with myself, Harry and Dr. Putnam with daugther and her . BiPAP is contraindicated as he cannot safely protect his airway or manage his secretions at this time. The daughter does not want him intubated at this time despite him belly breathing with a rate persistently in the 40s. Oxygenating and ventilating on max settings of vapotherm at this time. We discussed that he will not maintain his respiratory status and we would like to intubate rather than waiting until he goes into cardiac or respiratory arrest. The daughter does not want intubation at this time and would prefer emergent intubation if the situation were to arise. Intubation/ crash cart is outside his room. Plan to get another ABG if he desaturates and will follow up with daughter who is planning to spend the night if intubation becomes more urgent.
--- NOTE | 2016-07-28 23:32 | PN ---
Hospitalist Progress Note Called to bedside at 1900 asked to eval for increased resp rate, patient assessed and noted to have rapid swallow breathing with a rate of 40 breathes per minute, ABG ordered zosyn ordered, and cbc bmp, ICU attending updated and Dr curry notified, tx to icu for vapotherm, explained to family that patient work of breathing is concerning and will require vapotherm if vapotherm is unsuccessful would need bipap or intubation however bipap contraindicated given his aspiration risk, and his loc, explain that if vapotherm did not decrease his WOB would need intubation, family reluctant to intubation at this point, abg shows resp alkalosis, after two hours of vapotherm resp rate still 40 i discusses that intubation is indicated, family does not wish to proceed and they do no not want to sign DNI, explain that if this continues he will most likely stop breathing, family states that if his heart stops or his breathing stops they want life saving interventions such as intubation and cpr, Notified DR casillas and Dr curry about situation, confernce call place with family and dr curry and myself, at this point the plan is to continue vapotherm and to not intubate, the family is aware that the patient can not maintain a rsp rate of 40 and will either suffer resp arrest or cardiac arrest, at which point intubation becomes dangerous they are aware of this risk and accepting of this, their wish is to intubate at an emergent basis only,
[2016-07-29] MEDS: Chlorhexidine MOUTHWASH 0.12%* 15 ML UDC TOPICAL SCH ×6 (01:19→21:40)
[2016-07-29] MEDS: Piperac/Tazob 3.375 gm in NS* 3.375 GM/100 ML BAG IVPB SCH ×3 (04:46→21:45)
[2016-07-29] MEDS: Oral Rinse (Biotene)(NF) 237 ML ORAL RINSE BTL MT PRN (04:46)
[2016-07-29] MEDS: Heparin VIAL(*) 5000 UNITS/ML VIAL (FIVE THOUSAND) SUBCUT SCH ×2 (06:07→13:57)
[2016-07-29 06:38] LABS: Hematocrit 34 % (42-52); Hemoglobin 10.6 g/dl (14.0-18.0); Mean Corpuscular HGB Conc 32 g/dl (31-36); Mean Corpuscular Hemoglobin 28 pg (27-31); Mean Corpuscular Volume 87 fL (80-94); Mean Platelet Volume 9 um3 (7.4-10.4); Red Blood Count 3.85 10^6/ul (4.0-5.4); Red Cell Distribution Width 15 % (10.5-15); White Blood Count 11.3 10^3/ul (3.5-10.8)
[2016-07-29 06:47] LABS: Calcium 7.9 mg/dL (8.6-10.3); EGFR African American 171.3 (>60); EGFR Non-African American 133.2 (>60); Potassium 3.6 mmol/L (3.5-5.0)
[2016-07-29] MEDS: Famotidine SUSP* 40 MG/5 ML ORAL.SUSP G TUBE SCH (08:20)
[2016-07-29] MEDS ORDERED: Magnesium Sulfate 2 GM IV IVPB ONE (09:00)
--- NOTE | 2016-07-29 11:30 | PN ---
Progress Note - Progress Note Note: Patient with progressive supranuclear palsy (PSP) admitted for aspiration pneumonia (Klebsiella), which responded to antibiotic Rx (with Zosyn) - transferred out of the ICU yesterday breathing comfortably on room air, and was readmitted to ICU last night with respiratory distress (RR = 40 and use of accessory muscles) and O2 desaturation. Source of problem most likely aspiration (failed swallowing evaluation yesterday)- it was felt at that time that intubation was the most appropriate intervention, but patient's daughter refused intubation, and also refused to sign a form designating a "do not intubate" order. This AM patient is afebrile, but is tachypneic (RR = 36) and is on high-flow, humidified nasal O2 (Vapotherm ) at 40 L/min, with SpO2 = 97%. there is (and has been) has marked rigidity and bradykinesis, with minimal response to verbal commands. Lungs are (remarkably) clear to auscultation. The major problem in this case is recurrent aspiration, which is a noted consequence of PSP. Unfortunately, there is no effective Rx for PSP, so this problem is unlikely to resolve. Patient has been seen by neurology, and ENT consult is pending. At this point, our management plan is mostly general supportive care, including oral decontamination and frequent NT suctioning. The prognosis is very poor. The patient's daughter has been informed of our evaluation and management plan.
[2016-07-29] MEDS: Ropinirole TAB* 0.5 MG TAB PO SCH ×2 (12:10→22:18)
--- NOTE | 2016-07-29 14:39 | RAD ---
Indication: Bilateral lower extremity swelling with immobility. Duplex Doppler sonography of the deep venous system of both lower extremities was performed. The right common femoral vein, proximal greater saphenous vein, proximal deep femoral vein, femoral vein is noncompressible with echogenic material. This is consistent with deep venous thrombosis. One of the paired peroneal veins in the right lower extremity is also thrombosed. The left common femoral vein, proximal greater saphenous vein, proximal deep femoral vein, femoral vein, popliteal vein, posterior tibial veins and peroneal veins are patent and compressible. The study was technically limited due to patient's body habitus. IMPRESSION: Deep venous thrombosis involving the right lower extremity from the right common femoral vein to the distal femoral vein. The left lower extremity demonstrates no evidence of deep venous thrombosis.
--- NOTE | 2016-07-29 14:52 | PN ---
Progress Note - Progress Note Note: EVIDENCE OF DEEP VEIN THROMBOSIS Because of the possibility that an acute pulmonary embolism was the source of the respiratory deterioration last night, and ultrasound was performed of both lower extremities, and this revealed thrombosis (nonocclusive) of the right common femoral vein. Patient had been receiving thromboprophylaxis with subQ heparin (5,000 units q 8h), and this was changed to full anticoagulation with enoxaparin (1 mg/kg q 12h).
--- NOTE | 2016-07-29 14:53 | CONS ---
NEUROLOGY CONSULTATION NOTE: DATE OF CONSULT: 07/29/16 LOCATION: He is in the intensive care unit, bed 7. REFERRING PHYSICIAN: Dr. Putnam. PRIMARY CARE DOCTOR: Dr. eRid. CHIEF COMPLAINT: Aspiration, parkinsonism. HISTORY OF PRESENT ILLNESS: Hernan Chappell is a 76-year-old man, admitted on 07/23/16, with a possible aspiration pneumonia. He carries a diagnosis of progressive supranuclear palsy and I reviewed one of his last visits with Dr. Aguilera in our office from 10/10/15. The history is otherwise from hospital records and his daughter and also his son-in-law who is present. He has progressively become more immobilized over several years. He was last in the hospital with dehydration and possible aspiration in March. He has been in various rehab facilities and nursing homes, and most recently the family has moved into [facility], where they care for him with multiple family members. In spite of that, he has gradually declined in his mobility and swallowing ability and they had an appointment to see ENT upcoming before this most recent event. He became minimally responsive and so was brought into the emergency room where it was thought that he might have aspiration pneumonia. He had an elevated white blood cell count, but a clear chest x-ray. Over the course of his hospitalization, he has had multiple episodes of compromised respiratory function and he was discharged to the floor within the last couple of days, but had to be readmitted to the ICU last night when he became extremely tachypneic and desaturated. Currently, his respiratory status seems to have stabilized. I spoke with his daughter at length, probably an hour or so all together. She still feels that there must be some therapy that will improve her father's swallowing ability and motor ability and talks about various homeopathic therapies and experimental therapies. He remains full code. We discussed that at some length as well. PAST MEDICAL HISTORY: His past medical history is mainly notable for his parkinsonian dementia complex. He was diagnosed as having progressive supranuclear palsy at [facility] some years ago according to his daughter and from review of one of Dr. Aguilera's last outpatient notes. He has a history of hypertension, hyperlipidemia, prior back surgery. MEDICATIONS: Medications at home were apparently Sinemet CR 50/200 one twice per day, but they were crushing it apparently. He was also on Sinemet 25/100 two tablets three times per day, but he states that they tapered it under the direction of their most recent neurologist Dr. Benz, and it did not really seem to make any difference. If anything, they think that he might have actually functioned a little bit better off it. Current medications consist of; 1. Zosyn. 2. Ropinirole 2 mg per NG tube b.i.d. 3. Toradol 50 mg IV q.8 hours p.r.n. pain. 4. Heparin 5000 units subcu q.8 hours. REVIEW OF SYSTEMS: From the daughter is that he is able to speak at times, but not at other times. She states that he is able to ambulate with assist, but in reading physical therapy outpatient notes from this past March, he was only able to transfer with assist. They deny any recent falls. She feels that his cognition is usually intact, but that is extremely doubtful. PHYSICAL EXAM: He has a dry mouth, but his skin turgor seems normal. Most recent vitals; temperature is 98.4, blood pressure 169/81, heart rate is 66 and regular, respiratory rate is 31. Neurologically, his eyes are straight ahead and unmoving. He closes his eyes and opens some, but not to command. There is no blink response. There is minimal facial movement. There is no gag response and his mouth remains open. He extremity rigidity, worse in the legs. He has bilateral knee contractures and a 90 degrees left ankle contracture. There is occasional mild tremor in the left hand. Wrists, hands, and elbows are held in flexion, but I am able to extend them almost fully. There is no speech and he does not follow any commands. DIAGNOSTIC STUDIES/LAB DATA: I reviewed his MRI scan from 12/21/15, it reveals severe mid brain atrophy as well as global atrophy. 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 He is going to be a constant aspiration risk. I have tried to explain in detail and at length that this is a neurodegenerative condition and that there is no good medical therapy and that he has always been aspiration risk. We talked about resuscitation status and feeding tubes. His daughter kept bringing up alternative therapies and that there must be some other treatment and I explained that there was none that I was aware of that would improve his mobility or decrease his aspiration risk. We spent a good 45 minutes in back and forth question and answers. I discussed my impression with Dr. Putnam. Supportive care will continue, but I do not think there is any medical therapy that is likely to improve his mobility or decrease his aspiration risk. Over 50% of the 60-minute consultation was spent [id number] counseling and education. CC: Dr. Aguilera* [id number]/CPS #: [id number] MTDD
[2016-07-29] MEDS: Enoxaparin(*) 80 MG/0.8 ML SYR SUBCUT SCH (15:28)
[2016-07-29] MEDS: Ketorolac INJ* 15 MG/ML 1 ML VIAL IV PUSH PRN (16:32)
[2016-07-30] MEDS: Chlorhexidine MOUTHWASH 0.12%* 15 ML UDC TOPICAL SCH ×6 (01:45→21:53)
[2016-07-30] MEDS: Enoxaparin(*) 80 MG/0.8 ML SYR SUBCUT SCH ×2 (03:45→14:54)
[2016-07-30] MEDS: Piperac/Tazob 3.375 gm in NS* 3.375 GM/100 ML BAG IVPB SCH ×3 (05:24→21:53)
[2016-07-30 06:04] LABS: Hematocrit 31 % (42-52); Hemoglobin 9.8 g/dl (14.0-18.0); Mean Corpuscular HGB Conc 32 g/dl (31-36); Mean Corpuscular Hemoglobin 28 pg (27-31); Mean Corpuscular Volume 87 fL (80-94); Mean Platelet Volume 9 um3 (7.4-10.4); Red Blood Count 3.51 10^6/ul (4.0-5.4); Red Cell Distribution Width 14 % (10.5-15)
[2016-07-30 06:23] LABS: BUN/Creatinine Ratio 22.8 (8-20); Calcium 7.8 mg/dL (8.6-10.3); EGFR African American 178.3 (>60); EGFR Non-African American 138.6 (>60); Potassium 3.6 mmol/L (3.5-5.0)
--- NOTE | 2016-07-30 08:21 | PN ---
Critical Care Services: Patient now on enoxaparin for DVT right leg, and did well overnight. Less tachypneic this AM. However, he continues to be rigid and poorly responsive ( with little prospect for improvement, considering his neurologic disorder is not treatable). Neurology consult appreciated. Vital Signs: Temp Pulse Resp BP SpO2 FiO2 99.0 F 50 31 142/84 99 40 Physical Exam: Gen:Eyes open but does not respond to verbal commands. HEENT:Mouth wide open and oral mucosa dry. Lungs:occasional coarse rhonchi Cardiac: Reg rhythm Abdomen:Not distended. Extremities: 1+ edema in feet and hands. Neuro:Marked rigidity in all extremities. Fluid Balance (Past 24 Hours): 07/30/16 06:59 Intake Total 365 Output Total 1000 Balance -635 Weight 173 lb Intake: IV Fluids 25 ABX - ZOSYN KCL 25 NS IVPB 320 ABX - ZOSYN 100 KCL 50 NS 170 Tube Feeding Tube Feeding Flush Amount 20 Output: Phillip 1000 Other: Date of Last Bowel 07/29/16 Movement # Bowel Movements 1 Estimated Stool Amount Small NOTE: Admission weight = 167 lbs. Labs: 07/30/16 07/30/16 05:50 05:50 WBC 10.0 Hgb 9.8 Hct 31 Plt Count 203 Sodium 149 Potassium 3.6 Chloride 119 Carbon Dioxide 27 BUN 13 Creatinine 0.57 Glucose 84 Calcium 7.8 L Studies: 12-lead ECG: Sinus rhythm. No acute ST-T wave changes. Nutrition: Jevity 1.2 at 60 cc/hr restarted today. Impression: Appears clinically stable, although heart rate has declined into the 40s (sinus bradycardia). On day 7 of antibiotic therapy for aspiration pneumonia. Is afebrile, and leukocytosis has resolved. Plan: 1. ENT consult pending (for swallowing evaluation). 2. Check procalcitonin: If < 1, then discontinue antibiotic Rx of the pneumonia. 3. Continue tube feedings for now. 4. Taper inhaled O2 as tolerated.
[2016-07-30] MEDS: Famotidine SUSP* 40 MG/5 ML ORAL.SUSP G TUBE SCH (08:46)
[2016-07-31] MEDS: Chlorhexidine MOUTHWASH 0.12%* 15 ML UDC TOPICAL SCH ×6 (00:55→20:41)
[2016-07-31] MEDS: Enoxaparin(*) 80 MG/0.8 ML SYR SUBCUT SCH ×2 (03:10→15:43)
[2016-07-31] MEDS: Piperac/Tazob 3.375 gm in NS* 3.375 GM/100 ML BAG IVPB SCH ×2 (04:45→13:14)
[2016-07-31 06:27] LABS: Hematocrit 31 % (42-52); Hemoglobin 10.1 g/dl (14.0-18.0); Mean Corpuscular HGB Conc 32 g/dl (31-36); Mean Corpuscular Hemoglobin 28 pg (27-31); Mean Corpuscular Volume 87 fL (80-94); Mean Platelet Volume 9 um3 (7.4-10.4); Red Blood Count 3.59 10^6/ul (4.0-5.4); Red Cell Distribution Width 14 % (10.5-15)
[2016-07-31 06:38] LABS: BUN/Creatinine Ratio 24.1 (8-20); Calcium 7.9 mg/dL (8.6-10.3); EGFR African American 174.7 (>60); EGFR Non-African American 135.9 (>60); Potassium 3.4 mmol/L (3.5-5.0)
[2016-07-31] MEDS: Famotidine SUSP* 40 MG/5 ML ORAL.SUSP G TUBE SCH (07:42)
--- NOTE | 2016-07-31 08:11 | RAD ---
Indication: Pneumonia. Single frontal view of the chest performed at 0632 hours was reviewed. Comparison is made with previous exam dated July 28, 2016. Increasing right basilar pneumonia is noted. No pneumothorax is noted. Glenohumeral joint arthritis is noted. IMPRESSION: INCREASING RIGHT BASILAR PNEUMONIA.
[2016-07-31] MEDS: hydrALAZINE IV* 20 MG/ML VIAL IV SLOW PU PRN (11:03)
--- NOTE | 2016-07-31 14:18 | PN ---
Critical Care Services: Clinical condition unchanged, although O2 requirement has decreased (now off the high-flow Vapotherm system). Nurse noted that brownish liquid was suctioned from oropharynx, similar in color to tube feedings. Vital Signs: Temp Pulse Resp BP SpO2 FiO2 98.0 F 61 23 142/65 97 40 Physical Exam: Gen:Eyes open but otherwise is poorly responsive. HEENT: Oropharynx clear. Mucosa dry. Lungs: Occasional coarse rhonchi. No crackles or wheezes. Extremities:No cyanosis. 1+edema Neuro: marked rigidity. Fluid Balance (Past 24 Hours): 07/31/16 06:59 Intake Total 1008 Output Total 1250 Balance -242 Weight 168 lb 6.931 oz Intake: IV Fluids 16 ABX - ZOSYN KCL NS 16 IVPB 310 ABX - ZOSYN 310 KCL NS Tube Feeding 482 Tube Feeding Flush Amount 200 Output: Phillip 1250 Other: Date of Last Bowel 07/30/16 Movement # Bowel Movements 1 Estimated Stool Amount Medium Labs: 07/31/16 07/31/16 05:20 05:20 WBC 9.0 Hgb 10.1 Hct 31 Plt Count 222 Sodium 148 Potassium 3.4 Chloride 118 Carbon Dioxide 26 Anion Gap 4 BUN 14 Creatinine 0.58 Glucose 166 H Procalcitonin 0.1 Studies: cxr: Infiltrate right base, more extensive than in last CXR. Nutrition: Tube feeding with Jevity 1.2 at 60 cc/hr Impression: Apparent aspiration of tube feedings. Plan: 1. Keep head of the bed up at 30 degrees or higher while feeding. 2. I will switch to a concentrated tube feeding (Nepro, 1.8 kcal/ml, almost double the caloric density of the current feeding formula) and reduce the feeding volume.
[2016-07-31] MEDS: Ketorolac INJ* 15 MG/ML 1 ML VIAL IV PUSH PRN (19:32)
[2016-08-01] MEDS: Chlorhexidine MOUTHWASH 0.12%* 15 ML UDC TOPICAL SCH ×5 (01:05→16:15)
[2016-08-01] MEDS: Oral Rinse (Biotene)(NF) 237 ML ORAL RINSE BTL MT PRN ×2 (02:37→16:15)
[2016-08-01] MEDS: Enoxaparin(*) 80 MG/0.8 ML SYR SUBCUT SCH ×2 (03:01→18:43)
[2016-08-01] MEDS: Ketorolac INJ* 15 MG/ML 1 ML VIAL IV PUSH PRN ×2 (04:06→16:15)
[2016-08-01 05:51] LABS: BUN/Creatinine Ratio 29.6 (8-20); Calcium 8.2 mg/dL (8.6-10.3); EGFR African American 189.7 (>60); EGFR Non-African American 147.5 (>60); Potassium 3.5 mmol/L (3.5-5.0)
[2016-08-01] MEDS: Famotidine SUSP* 40 MG/5 ML ORAL.SUSP G TUBE SCH (07:56)
--- NOTE | 2016-08-01 08:34 | RAD ---
INDICATION: Follow-up DVT at the RIGHT common femoral vein. COMPARISON: July 29, 2016 ultrasound. TECHNIQUE: Bray scale, color Doppler, and spectral analysis of the deep veins of the RIGHT lower extremity. Vessel compression, phasicity, and augmentation assessed. REPORT: Extensive RIGHT lower extremity DVT with nonocclusive thrombus within the RIGHT common femoral vein, profunda femoral vein, occlusive thrombus within the entire superficial femoral vein, and nonocclusive thrombus within one of the posterior tibial and one of the peroneal veins. The popliteal and remaining posterior tibial and peroneal veins are grossly patent. Patent great saphenous vein at the saphenous femoral junction. Patency of the contralateral common femoral vein documented. IMPRESSION: No significant change in extensive RIGHT lower extremity DVT with occlusive thrombus involving the entire superficial femoral vein and nonocclusive thrombus extending as far proximal as the common femoral vein.
--- NOTE | 2016-08-01 11:58 | PN ---
Critical Care Services: Clinically stable on nasal O2. Mental status remains poor (does not consistently respond to verbal commands). Has been seen by neurology and ENT, who agree that the patient has an advanced and untreatable neurodegenerative disorder that results is disordered swallowing and predisposes to recurrent pulmonary aspiration. Daughter has been informed of this by both neurology and ENT services, as well as myself. Vital Signs: Temp Pulse Resp BP SpO2 FiO2 98.1 F 62 33 174/75 97 40 Physical Exam: Gen:Eyes open but is unresponsive this AM HEENT:Oropharynx dry. There is a 2x1 cm crusted lesion on right side of the hard palatte Lungs: Occasional coarse rhonchi. Extremities: No cyanosis or edema. Fluid Balance (Past 24 Hours): 08/01/16 06:59 Intake Total 583 Output Total 1175 Balance -592 Weight 168 lb Intake: IV Fluids KCL NS IVPB 100 ABX - ZOSYN 100 KCL NS Oral 0 Tube Feeding 483 Tube Feeding Flush Amount 0 Output: Phillip 1175 Labs: 08/01/16 05:20 Sodium 147 Potassium 3.5 Chloride 114 Carbon Dioxide 28 BUN 16 Creatinine 0.54 L Glucose 114 Calcium 8.2 L Studies: Repeat venous ultrasound of right leg: Extensive thrombosis involving the common and superfifical femoral veins. No change from prior study. Nutrition: Tube feedings with Nepro at 30 cc/hr. Impression: 1. Clinically stable at this time, but overall prognosis is poor. 2. Patient's daughter has been unrealistic in her expectations, despite multiple sources attesting to the advanced nature of the patient's condition and the untreatable aspect of the condition. Consult for swallowing evaluation has been sent. 3. The patient has a DVT in the right leg, which is being treated with enoxaparin (80 mg subQ q 12h). Plan: 1. Will transfer to the floor today. 2. Have ordered a swallowing evaluation.
--- NOTE | 2016-08-01 22:41 | CONS ---
CONSULTATION REPORT: DATE OF CONSULTATION: 08/01/16 HISTORY: I got a call from Dr. Putnam again concerned about his swallowing and the daughter wanting to know what the status is, so I talked to him and his daughter and then I called Speech Therapy. The patient had been initially referred to me for swallowing problems and when he arrived in the office last week, he had what appeared to be a severe aspiration pneumonia and I had Semmes taken by ambulance to the hospital where he was admitted to the intensive care unit with a diagnosis of pneumonia. I then saw him yesterday and he was nonresponsive in the ICU. 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 He is at very high risk for aspiration pneumonia and with patients with progressive neurological disorders, they often will ultimately succumb to an aspiration pneumonia. The daughter was worried that the dry mouth, because he was getting tube feeds, was a concern. They are using toothettes with water. The dry mouth is not a concern, but the most concerning is his inability to swallow. She was wondering whether there is some neurostimulation or stretching that can be done and there is not. If he is responsive enough, he could get a barium swallow; but as far as I could tell, he is not even a candidate for that and when I talked to the Speech Therapy, they had already seen him and confirmed that. They were so worried about him that they had made him n.p.o. earlier in the week. If the daughter is really insistent on him trying to eat and swallow, the decision is really hers and his with the realization that he is at high risk for aspiration pneumonia and if he gets another pneumonia, he might from this. I think my recommendation was the best course of action in terms of this particular problem is if he is stable, transfer him out of the floor, see if Speech Pathology can start working with them, maybe get a barium or Gastrografin swallow if he is stable enough to do that and then make the decision whether he is going to try to eat, try to do thickened liquids, and the Speech pathologist confirmed that he had been on honey thickness with the realization that he is at and will remain at high risk for aspiration pneumonia. [id number]/[facility] #: [id number] LINDA
[2016-08-02] MEDS: Enoxaparin(*) 80 MG/0.8 ML SYR SUBCUT SCH ×2 (05:34→19:17)
[2016-08-02 06:49] LABS: BUN/Creatinine Ratio 34.7 (8-20); Calcium 8.4 mg/dL (8.6-10.3); EGFR African American 212.3 (>60); Potassium 3.6 mmol/L (3.5-5.0)
[2016-08-02] MEDS: Famotidine SUSP* 40 MG/5 ML ORAL.SUSP G TUBE SCH (08:13)
--- NOTE | 2016-08-02 18:44 | PN ---
Subjective Date of Service: 08/02/16 Interval History: Patient does not communicate and is non verbal. Objective Active Medications: Enoxaparin Sodium (Lovenox(*)) 80 mg SUBCUT 0600,1800 [facility] Last Admin: 08/02/16 05:34 Dose: 80 mg Famotidine (Pepcid Susp*) 20 mg G TUBE DAILY [facility] Last Admin: 08/02/16 08:13 Dose: Not Given Hydralazine HCl (Apresoline Iv*) 5 mg IV SLOW PU Q6H PRN PRN Reason: BLOOD PRESSURE Last Admin: 07/31/16 11:03 Dose: 5 mg Lactated Ringer's (Lactated Ringers 1000 Ml Bag*) 1,000 mls @ 75 mls/hr IV PER RATE [facility] Last Admin: 08/02/16 08:05 Dose: 75 mls/hr Multi-Ingredient Mouthwash/Gargle (Biotene Dry Mouth Oral Rinse(Nf)) 15 ml MT Q2H PRN PRN Reason: DRY MOUTH Last Admin: 08/01/16 16:15 Dose: 15 ml Vital Signs 08/01/16 08/01/16 08/01/16 19:36 20:00 23:42 Temperature 97.6 F Pulse Rate 59 66 Respiratory 18 20 24 Rate Blood Pressure 156/80 165/81 (mmHg) O2 Sat by Pulse 100 93 Oximetry 08/02/16 08/02/16 08/02/16 03:13 07:54 08:00 Temperature 97.8 F 98.0 F Pulse Rate 53 67 Respiratory 16 28 Rate Blood Pressure 171/51 186/85 (mmHg) O2 Sat by Pulse 97 98 Oximetry 08/02/16 08/02/16 11:31 15:39 Temperature 99.9 F 99.0 F Pulse Rate 71 70 Respiratory Rate Blood Pressure 163/95 184/89 (mmHg) O2 Sat by Pulse 98 96 Oximetry Oxygen Devices in Use Now: Nasal Cannula Appearance: Elderly gentleman lying in bed in NAD Eyes: No Scleral Icterus Ears/Nose/Mouth/Throat: Mucous Membranes Moist, - - epistaxis Neck: No Thyroid Enlargement, Masses Respiratory: Clear to Auscultation Cardiovascular: - - S1S2 ekta Abdominal: No Hepatosplenomegaly Lymphatic: No Cervical Adenopathy Extremities: No Edema, No Clubbing, Cyanosis Skin: No Rash or Ulcers Neurological: Alert and Oriented x 3 Result Diagrams: 07/31/16 05:20 08/02/16 05:59 Additional Lab and Data: Lab Results 07/23/16 07/23/16 07/23/16 Range/Units 11:32 11:32 11:32 WBC 20.1 H (3.5-10.8) 10^3/ul RBC 5.74 H (4.0-5.4) 10^6/ul Hgb 16.2 (14.0-18.0) g/dl Hct 51 (42-52) % MCV 89 (80-94) fL MCH 28 (27-31) pg MCHC 32 (31-36) g/dl RDW 15 (10.5-15) % Plt Count 374 (150-450) 10^3/ul MPV 9 (7.4-10.4) um3 Neut % (Auto) 90.7 H (38-83) % Lymph % (Auto) 4.4 L (25-47) % [place] % (Auto) 4.6 (1-9) % Eos % (Auto) 0 (0-6) % Baso % (Auto) 0.3 (0-2) % Absolute Neuts (auto) 18.3 H (1.5-7.7) 10^3/ul Absolute Lymphs (auto) 0.9 L (1.0-4.8) 10^3/ul Absolute Monos (auto) 0.9 H (0-0.8) 10^3/ul Absolute Eos (auto) 0 (0-0.6) 10^3/ul Absolute Basos (auto) 0.1 (0-0.2) 10^3/ul Absolute Nucleated RBC 0.03 10^3/ul Nucleated RBC % 0.1 APTT (26.0-36.3) seconds ABG pH (7.35-7.45) ABG pCO2 (35-45) mmHg ABG pO2 (80-100) mmHg ABG HCO3 (19-31) mmol/L ABG O2 Saturation (95-98) % ABG Base Excess (-2.0-2.0) O2 Delivery Device Sodium Pending Potassium 3.2 L (3.5-5.0) mmol/L Chloride 120 H (101-111) mmol/L Carbon Dioxide 28 (22-32) mmol/L Anion Gap Pending BUN 34 H (6-24) mg/dL Creatinine 1.22 H (0.67-1.17) mg/dL Est GFR ( Amer) 74.1 (>60) Est GFR (Non-Af Amer) 57.6 (>60) BUN/Creatinine Ratio 27.9 H (8-20) Glucose 108 H (70-100) mg/dL Lactic Acid 1.6 (0.5-2.0) mmol/L Calcium 10.0 (8.6-10.3) mg/dL Total Bilirubin 1.00 (0.2-1.0) mg/dL AST 61 H (13-39) U/L ALT 48 (7-52) U/L Alkaline Phosphatase 111 H (34-104) U/L Total Creatine Kinase 283 H (10-223) U/L CK-MB (CK-2) Pending Troponin I Pending C-Reactive Protein 251.52 H (< 5.00) mg/L Total Protein 8.8 (6.4-8.9) g/dL Albumin 3.8 (3.2-5.2) g/dL Globulin 5.0 H (2-4) g/dL Albumin/Globulin Ratio 0.8 L (1-3) 07/23/16 07/23/16 Range/Units 11:32 11:37 WBC (3.5-10.8) 10^3/ul RBC (4.0-5.4) 10^6/ul Hgb (14.0-18.0) g/dl Hct (42-52) % MCV (80-94) fL MCH (27-31) pg MCHC (31-36) g/dl RDW (10.5-15) % Plt Count (150-450) 10^3/ul MPV (7.4-10.4) um3 Neut % (Auto) (38-83) % Lymph % (Auto) (25-47) % [place] % (Auto) (1-9) % Eos % (Auto) (0-6) % Baso % (Auto) (0-2) % Absolute Neuts (auto) (1.5-7.7) 10^3/ul Absolute Lymphs (auto) (1.0-4.8) 10^3/ul Absolute Monos (auto) (0-0.8) 10^3/ul Absolute Eos (auto) (0-0.6) 10^3/ul Absolute Basos (auto) (0-0.2) 10^3/ul Absolute Nucleated RBC 10^3/ul Nucleated RBC % APTT 38.2 H (26.0-36.3) seconds ABG pH 7.44 (7.35-7.45) ABG pCO2 34 L (35-45) mmHg ABG pO2 125 H (80-100) mmHg ABG HCO3 24.5 (19-31) mmol/L ABG O2 Saturation 99.3 H (95-98) % ABG Base Excess -0.5 (-2.0-2.0) O2 Delivery Device 5 lnc Sodium Potassium (3.5-5.0) mmol/L Chloride (101-111) mmol/L Carbon Dioxide (22-32) mmol/L Anion Gap BUN (6-24) mg/dL Creatinine (0.67-1.17) mg/dL Est GFR ( Amer) (>60) Est GFR (Non-Af Amer) (>60) BUN/Creatinine Ratio (8-20) Glucose (70-100) mg/dL Lactic Acid (0.5-2.0) mmol/L Calcium (8.6-10.3) mg/dL Total Bilirubin (0.2-1.0) mg/dL AST (13-39) U/L ALT (7-52) U/L Alkaline Phosphatase (34-104) U/L Total Creatine Kinase (10-223) U/L CK-MB (CK-2) Troponin I C-Reactive Protein (< 5.00) mg/L Total Protein (6.4-8.9) g/dL Albumin (3.2-5.2) g/dL Globulin (2-4) g/dL Albumin/Globulin Ratio (1-3) Assess/Plan/Problems-Billing Assessment: 76 year old gentleman admitted with acute hypoxic respiratory failure due to aspiration pneumonia. Patient had NG tube dcd yesterday. - Patient Problems (1) Pneumonia Current Visit: No Status: Acute Priority: High Onset Date: 03/18/14 Code (s): J18.9 - PNEUMONIA, UNSPECIFIED ORGANISM SNOMED Code(s): 005703284 Comment: Patient had hypoxic respiratory failure likely from aspiration pneumonia. Patient has recurrent issues with aspiration and daughter understands this. Despite this she would like to continue pureed foods with thickened liquids. She understands he could aspirate and even but is willing to to accept this. We may try to advance his diet when he wakes up and we clear up his epistaxis. (2) Epistaxis Current Visit: Yes Status: Acute Code(s): R04.0 - EPISTAXIS SNOMED Code(s) : 29501990 Comment: If this does not clear today (It has been a problem apparently througout his hospital course) I will ask ENT for assistance as he is on lovenox for his DVT and controlling it may be very difficult. (3) Progressive supranuclear palsy Current Visit: Yes Status: Acute Code(s): G23.1 - PROGRESSIVE SUPRANUCLEAR OPHTHALMOPLEGIA SNOMED Code(s): 50948193 Comment: This is apparently end stage and unfortunately daughter at times seems to accept this and other times cannot.His prognosis is grave and deteriorating. Will continue discussions with daughter. (4) DVT (deep venous thrombosis) Current Visit: Yes Status: Acute Code(s): I82.409 - ACUTE EMBOLISM AND THOMBOS UNSP DEEP VN UNSP LOWER EXTREMITY SNOMED Code(s): 398793096 Comment: On Lovenox (5) Full code status Current Visit: No Status: Acute Code(s): Z78.9 - OTHER SPECIFIED HEALTH STATUS SNOMED Code(s): 064146361 Comment: This also needs to be readdressed in this very unfortunate situation
[2016-08-03] MEDS: hydrALAZINE IV* 20 MG/ML VIAL IV SLOW PU PRN (00:54)
[2016-08-03] MEDS: Enoxaparin(*) 80 MG/0.8 ML SYR SUBCUT SCH ×2 (05:30→22:01)
[2016-08-03 06:21] LABS: Hematocrit 32 % (42-52); Hemoglobin 10.4 g/dl (14.0-18.0); Mean Corpuscular HGB Conc 33 g/dl (31-36); Mean Corpuscular Hemoglobin 28 pg (27-31); Mean Corpuscular Volume 86 fL (80-94); Mean Platelet Volume 9 um3 (7.4-10.4); Red Cell Distribution Width 14 % (10.5-15); White Blood Count 8.4 10^3/ul (3.5-10.8)
[2016-08-03] MEDS: Famotidine SUSP* 40 MG/5 ML ORAL.SUSP G TUBE SCH (07:55)
--- NOTE | 2016-08-03 19:47 | PN ---
Subjective Date of Service: 08/03/16 Interval History: Patient communicated with grasping my hand. No pain. No SOB. Objective Active Medications: Enoxaparin Sodium (Lovenox(*)) 80 mg SUBCUT 0600,1800 [facility] Last Admin: 08/03/16 05:30 Dose: 80 mg Famotidine (Pepcid Susp*) 20 mg G TUBE DAILY [facility] Last Admin: 08/03/16 07:55 Dose: Not Given Hydralazine HCl (Apresoline Iv*) 5 mg IV SLOW PU Q6H PRN PRN Reason: BLOOD PRESSURE Last Admin: 08/03/16 00:54 Dose: 5 mg Lactated Ringer's (Lactated Ringers 1000 Ml Bag*) 1,000 mls @ 75 mls/hr IV PER RATE [facility] Last Admin: 08/03/16 12:42 Dose: 75 mls/hr Multi-Ingredient Mouthwash/Gargle (Biotene Dry Mouth Oral Rinse(Nf)) 15 ml MT Q2H PRN PRN Reason: DRY MOUTH Last Admin: 08/01/16 16:15 Dose: 15 ml Vital Signs 08/02/16 08/02/16 08/03/16 19:23 20:00 00:00 Temperature 99.3 F Pulse Rate 69 Respiratory 36 Rate Blood Pressure 185/91 197/81 (mmHg) O2 Sat by Pulse 100 Oximetry 08/03/16 08/03/16 08/03/16 00:05 01:49 04:30 Temperature Pulse Rate 61 68 62 Respiratory 30 48 40 Rate Blood Pressure 190/90 164/83 179/83 (mmHg) O2 Sat by Pulse 99 97 94 Oximetry 08/03/16 08/03/16 08/03/16 05:00 05:10 07:40 Temperature Pulse Rate 71 Respiratory 32 34 Rate Blood Pressure 170/88 (mmHg) O2 Sat by Pulse 98 100 Oximetry 08/03/16 08/03/16 08/03/16 08:00 11:48 16:19 Temperature 97.2 F 98.7 F Pulse Rate 70 77 Respiratory 34 16 Rate Blood Pressure 157/78 182/95 (mmHg) O2 Sat by Pulse 93 99 Oximetry Oxygen Devices in Use Now: Nasal Cannula Appearance: Elderly man lying in bed in NAD Eyes: No Scleral Icterus Ears/Nose/Mouth/Throat: Clear Oropharnyx, - - Dried blood in Nares Neck: No Thyroid Enlargement, Masses Respiratory: Clear to Auscultation Cardiovascular: - - S1S2 ekta Abdominal: NL Sounds; No Tenderness; No Distention, No Hepatosplenomegaly Lymphatic: No Cervical Adenopathy Extremities: No Clubbing, Cyanosis Skin: No Rash or Ulcers Neurological: - - Alert but non verbal Result Diagrams: 08/03/16 05:50 08/02/16 05:59 Additional Lab and Data: Lab Results 07/23/16 07/23/16 07/23/16 Range/Units 11:32 11:32 11:32 WBC 20.1 H (3.5-10.8) 10^3/ul RBC 5.74 H (4.0-5.4) 10^6/ul Hgb 16.2 (14.0-18.0) g/dl Hct 51 (42-52) % MCV 89 (80-94) fL MCH 28 (27-31) pg MCHC 32 (31-36) g/dl RDW 15 (10.5-15) % Plt Count 374 (150-450) 10^3/ul MPV 9 (7.4-10.4) um3 Neut % (Auto) 90.7 H (38-83) % Lymph % (Auto) 4.4 L (25-47) % [place] % (Auto) 4.6 (1-9) % Eos % (Auto) 0 (0-6) % Baso % (Auto) 0.3 (0-2) % Absolute Neuts (auto) 18.3 H (1.5-7.7) 10^3/ul Absolute Lymphs (auto) 0.9 L (1.0-4.8) 10^3/ul Absolute Monos (auto) 0.9 H (0-0.8) 10^3/ul Absolute Eos (auto) 0 (0-0.6) 10^3/ul Absolute Basos (auto) 0.1 (0-0.2) 10^3/ul Absolute Nucleated RBC 0.03 10^3/ul Nucleated RBC % 0.1 APTT (26.0-36.3) seconds ABG pH (7.35-7.45) ABG pCO2 (35-45) mmHg ABG pO2 (80-100) mmHg ABG HCO3 (19-31) mmol/L ABG O2 Saturation (95-98) % ABG Base Excess (-2.0-2.0) O2 Delivery Device Sodium Pending Potassium 3.2 L (3.5-5.0) mmol/L Chloride 120 H (101-111) mmol/L Carbon Dioxide 28 (22-32) mmol/L Anion Gap Pending BUN 34 H (6-24) mg/dL Creatinine 1.22 H (0.67-1.17) mg/dL Est GFR ( Amer) 74.1 (>60) Est GFR (Non-Af Amer) 57.6 (>60) BUN/Creatinine Ratio 27.9 H (8-20) Glucose 108 H (70-100) mg/dL Lactic Acid 1.6 (0.5-2.0) mmol/L Calcium 10.0 (8.6-10.3) mg/dL Total Bilirubin 1.00 (0.2-1.0) mg/dL AST 61 H (13-39) U/L ALT 48 (7-52) U/L Alkaline Phosphatase 111 H (34-104) U/L Total Creatine Kinase 283 H (10-223) U/L CK-MB (CK-2) Pending Troponin I Pending C-Reactive Protein 251.52 H (< 5.00) mg/L Total Protein 8.8 (6.4-8.9) g/dL Albumin 3.8 (3.2-5.2) g/dL Globulin 5.0 H (2-4) g/dL Albumin/Globulin Ratio 0.8 L (1-3) 07/23/16 07/23/16 Range/Units 11:32 11:37 WBC (3.5-10.8) 10^3/ul RBC (4.0-5.4) 10^6/ul Hgb (14.0-18.0) g/dl Hct (42-52) % MCV (80-94) fL MCH (27-31) pg MCHC (31-36) g/dl RDW (10.5-15) % Plt Count (150-450) 10^3/ul MPV (7.4-10.4) um3 Neut % (Auto) (38-83) % Lymph % (Auto) (25-47) % [place] % (Auto) (1-9) % Eos % (Auto) (0-6) % Baso % (Auto) (0-2) % Absolute Neuts (auto) (1.5-7.7) 10^3/ul Absolute Lymphs (auto) (1.0-4.8) 10^3/ul Absolute Monos (auto) (0-0.8) 10^3/ul Absolute Eos (auto) (0-0.6) 10^3/ul Absolute Basos (auto) (0-0.2) 10^3/ul Absolute Nucleated RBC 10^3/ul Nucleated RBC % APTT 38.2 H (26.0-36.3) seconds ABG pH 7.44 (7.35-7.45) ABG pCO2 34 L (35-45) mmHg ABG pO2 125 H (80-100) mmHg ABG HCO3 24.5 (19-31) mmol/L ABG O2 Saturation 99.3 H (95-98) % ABG Base Excess -0.5 (-2.0-2.0) O2 Delivery Device 5 lnc Sodium Potassium (3.5-5.0) mmol/L Chloride (101-111) mmol/L Carbon Dioxide (22-32) mmol/L Anion Gap BUN (6-24) mg/dL Creatinine (0.67-1.17) mg/dL Est GFR ( Amer) (>60) Est GFR (Non-Af Amer) (>60) BUN/Creatinine Ratio (8-20) Glucose (70-100) mg/dL Lactic Acid (0.5-2.0) mmol/L Calcium (8.6-10.3) mg/dL Total Bilirubin (0.2-1.0) mg/dL AST (13-39) U/L ALT (7-52) U/L Alkaline Phosphatase (34-104) U/L Total Creatine Kinase (10-223) U/L CK-MB (CK-2) Troponin I C-Reactive Protein (< 5.00) mg/L Total Protein (6.4-8.9) g/dL Albumin (3.2-5.2) g/dL Globulin (2-4) g/dL Albumin/Globulin Ratio (1-3) Assess/Plan/Problems-Billing Assessment: 76 year old gentleman admitted with acute hypoxic respiratory failure due to aspiration pneumonia. Patient had NG tube dcd yesterday. - Patient Problems (1) Pneumonia Current Visit: No Status: Acute Priority: High Onset Date: 03/18/14 Code (s): J18.9 - PNEUMONIA, UNSPECIFIED ORGANISM SNOMED Code(s): 262214405 Comment: Patient had hypoxic respiratory failure likely from aspiration pneumonia. Patient has recurrent issues with aspiration and daughter understands this. Despite this she would like to continue pureed foods with thickened liquids. She understands he could aspirate and even but is willing to to accept this. She wants us to try to advance his diet when he wakes up and we clear up his epistaxis. His epistaxis continues. Would like to place IVC filter to stop lovenox which could stop bleeding. She is considering. She wants another Venous duplex even though it would not alter our recommendation and he just had one. I hesitate to order another study that will not change but daughter is very insistent. (2) Epistaxis Current Visit: Yes Status: Acute Code(s): R04.0 - EPISTAXIS SNOMED Code(s) : 59002152 Comment: See above would like to get filter and dc anticoagulation. (3) Progressive supranuclear palsy Current Visit: Yes Status: Acute Code(s): G23.1 - PROGRESSIVE SUPRANUCLEAR OPHTHALMOPLEGIA SNOMED Code(s): 37150878 Comment: This is apparently end stage and unfortunately daughter at times seems to accept this and other times cannot.His prognosis is grave and deteriorating. Will continue discussions with daughter. (4) DVT (deep venous thrombosis) Current Visit: Yes Status: Acute Code(s): I82.409 - ACUTE EMBOLISM AND THOMBOS UNSP DEEP VN UNSP LOWER EXTREMITY SNOMED Code(s): 321777754 Comment: See above. Would like IVC filter and dc Lovenox (5) Full code status Current Visit: No Status: Acute Code(s): Z78.9 - OTHER SPECIFIED HEALTH STATUS SNOMED Code(s): 842833410 Comment: This also needs to be readdressed in this very unfortunate situation. She wants full code at this time
--- NOTE | 2016-08-03 20:59 | RAD ---
Indication: Follow-up deep venous thrombosis. Duplex Doppler sonography of the deep venous system of right lower extremity was performed. Bilaterally the common femoral veins and right proximal greater saphenous veins appear patent and compressible. There is persistent thrombus the right proximal deep femoral vein, femoral vein. The popliteal vein, posterior tibial veins and peroneal veins appear patent and compressible. IMPRESSION: There is now flow in the right common femoral vein to proximal greater saphenous vein as well as in the popliteal vein, posterior tibial vein and peroneal veins. Persistent deep venous thrombosis of the right femoral vein and proximal deep femoral vein is noted.
[2016-08-04] MEDS: Enoxaparin(*) 80 MG/0.8 ML SYR SUBCUT SCH ×2 (06:16→17:43)
[2016-08-04] MEDS: Famotidine SUSP* 40 MG/5 ML ORAL.SUSP G TUBE SCH (09:01)
[2016-08-04] MEDS: Acetaminophen SUPP* 650 MG SUPP PR PRN (10:40)
[2016-08-04] MEDS ORDERED: cloNIDine 0.1 MG PATCH* 0.1 MG/24 HR 7 DAY PATCH TRANSDERM SCH (13:00)
[2016-08-04] MEDS: hydrALAZINE IV* 20 MG/ML VIAL IV SLOW PU PRN (15:45)
--- NOTE | 2016-08-04 18:46 | PN ---
Subjective Date of Service: 08/04/16 Interval History: Patient non verbal and unable to express needs Long conversation with daughter She is concerned that nobody is taking epistaxis seriously although notes it has stopped She reiterated that her father is a fighter When pressed about goals she did express his interest in being comfortable but that includes being able to eat and perform physical therapy. Daughter has been refusing enoxaparin for known DVT. She was upset because I would not compromise on an alternative dosing of lovenox. Objective Active Medications: Acetaminophen (Tylenol Supp*) 650 mg MD Q6H PRN PRN Reason: PAIN Last Admin: 08/04/16 10:40 Dose: 650 mg Clonidine HCl (Zfuwqvry-Rlp-4 0.1 Mg Patch*) 0.1 mg TRANSDERM Q7D [facility] Last Admin: 08/04/16 13:25 Dose: 1 patch Enoxaparin Sodium (Lovenox(*)) 80 mg SUBCUT 0600,1800 [facility] Last Admin: 08/04/16 17:43 Dose: Not Given Famotidine (Pepcid Susp*) 20 mg G TUBE DAILY [facility] Last Admin: 08/04/16 09:01 Dose: 20 mg Hydralazine HCl (Apresoline Iv*) 5 mg IV SLOW PU Q6H PRN PRN Reason: BLOOD PRESSURE Last Admin: 08/04/16 15:45 Dose: 5 mg Lactated Ringer's (Lactated Ringers 1000 Ml Bag*) 1,000 mls @ 5 mls/hr IV PER RATE [facility] Last Admin: 08/04/16 15:00 Dose: 5 mls/hr Multi-Ingredient Mouthwash/Gargle (Biotene Dry Mouth Oral Rinse(Nf)) 15 ml MT Q2H PRN PRN Reason: DRY MOUTH Last Admin: 08/01/16 16:15 Dose: 15 ml Vital Signs 08/03/16 08/03/16 08/03/16 19:19 20:00 23:26 Temperature 97.7 F Pulse Rate 74 64 Respiratory 30 24 Rate Blood Pressure 186/101 170/84 (mmHg) O2 Sat by Pulse 100 99 Oximetry 08/04/16 08/04/16 08/04/16 03:01 07:31 08:00 Temperature 97.8 F 98.0 F Pulse Rate 73 69 Respiratory 24 20 20 Rate Blood Pressure 164/77 178/90 (mmHg) O2 Sat by Pulse 100 100 Oximetry 08/04/16 08/04/16 12:00 15:30 Temperature Pulse Rate 63 68 Respiratory 18 Rate Blood Pressure 186/97 200/95 (mmHg) O2 Sat by Pulse 98 94 Oximetry Oxygen Devices in Use Now: Simple Face Mask Appearance: NAD Eyes: No Scleral Icterus, PERRLA Ears/Nose/Mouth/Throat: - - left nares packed with gauze, no active bleeding seen in nares nor oropharynx Neck: NL Appearance and Movements; NL JVP, Trachea Midline Respiratory: Symmetrical Chest Expansion and Respiratory Effort, - - rhonchi Cardiovascular: RRR Abdominal: NL Sounds; No Tenderness; No Distention, No Hepatosplenomegaly Lymphatic: No Cervical Adenopathy Extremities: No Edema Neurological: - - Aoxo, cannot follow commands Result Diagrams: 08/03/16 05:50 08/02/16 05:59 Additional Lab and Data: Lab Results 07/23/16 07/23/16 07/23/16 Range/Units 11:32 11:32 11:32 WBC 20.1 H (3.5-10.8) 10^3/ul RBC 5.74 H (4.0-5.4) 10^6/ul Hgb 16.2 (14.0-18.0) g/dl Hct 51 (42-52) % MCV 89 (80-94) fL MCH 28 (27-31) pg MCHC 32 (31-36) g/dl RDW 15 (10.5-15) % Plt Count 374 (150-450) 10^3/ul MPV 9 (7.4-10.4) um3 Neut % (Auto) 90.7 H (38-83) % Lymph % (Auto) 4.4 L (25-47) % [place] % (Auto) 4.6 (1-9) % Eos % (Auto) 0 (0-6) % Baso % (Auto) 0.3 (0-2) % Absolute Neuts (auto) 18.3 H (1.5-7.7) 10^3/ul Absolute Lymphs (auto) 0.9 L (1.0-4.8) 10^3/ul Absolute Monos (auto) 0.9 H (0-0.8) 10^3/ul Absolute Eos (auto) 0 (0-0.6) 10^3/ul Absolute Basos (auto) 0.1 (0-0.2) 10^3/ul Absolute Nucleated RBC 0.03 10^3/ul Nucleated RBC % 0.1 APTT (26.0-36.3) seconds ABG pH (7.35-7.45) ABG pCO2 (35-45) mmHg ABG pO2 (80-100) mmHg ABG HCO3 (19-31) mmol/L ABG O2 Saturation (95-98) % ABG Base Excess (-2.0-2.0) O2 Delivery Device Sodium Pending Potassium 3.2 L (3.5-5.0) mmol/L Chloride 120 H (101-111) mmol/L Carbon Dioxide 28 (22-32) mmol/L Anion Gap Pending BUN 34 H (6-24) mg/dL Creatinine 1.22 H (0.67-1.17) mg/dL Est GFR ( Amer) 74.1 (>60) Est GFR (Non-Af Amer) 57.6 (>60) BUN/Creatinine Ratio 27.9 H (8-20) Glucose 108 H (70-100) mg/dL Lactic Acid 1.6 (0.5-2.0) mmol/L Calcium 10.0 (8.6-10.3) mg/dL Total Bilirubin 1.00 (0.2-1.0) mg/dL AST 61 H (13-39) U/L ALT 48 (7-52) U/L Alkaline Phosphatase 111 H (34-104) U/L Total Creatine Kinase 283 H (10-223) U/L CK-MB (CK-2) Pending Troponin I Pending C-Reactive Protein 251.52 H (< 5.00) mg/L Total Protein 8.8 (6.4-8.9) g/dL Albumin 3.8 (3.2-5.2) g/dL Globulin 5.0 H (2-4) g/dL Albumin/Globulin Ratio 0.8 L (1-3) 07/23/16 07/23/16 Range/Units 11:32 11:37 WBC (3.5-10.8) 10^3/ul RBC (4.0-5.4) 10^6/ul Hgb (14.0-18.0) g/dl Hct (42-52) % MCV (80-94) fL MCH (27-31) pg MCHC (31-36) g/dl RDW (10.5-15) % Plt Count (150-450) 10^3/ul MPV (7.4-10.4) um3 Neut % (Auto) (38-83) % Lymph % (Auto) (25-47) % [place] % (Auto) (1-9) % Eos % (Auto) (0-6) % Baso % (Auto) (0-2) % Absolute Neuts (auto) (1.5-7.7) 10^3/ul Absolute Lymphs (auto) (1.0-4.8) 10^3/ul Absolute Monos (auto) (0-0.8) 10^3/ul Absolute Eos (auto) (0-0.6) 10^3/ul Absolute Basos (auto) (0-0.2) 10^3/ul Absolute Nucleated RBC 10^3/ul Nucleated RBC % APTT 38.2 H (26.0-36.3) seconds ABG pH 7.44 (7.35-7.45) ABG pCO2 34 L (35-45) mmHg ABG pO2 125 H (80-100) mmHg ABG HCO3 24.5 (19-31) mmol/L ABG O2 Saturation 99.3 H (95-98) % ABG Base Excess -0.5 (-2.0-2.0) O2 Delivery Device 5 lnc Sodium Potassium (3.5-5.0) mmol/L Chloride (101-111) mmol/L Carbon Dioxide (22-32) mmol/L Anion Gap BUN (6-24) mg/dL Creatinine (0.67-1.17) mg/dL Est GFR ( Amer) (>60) Est GFR (Non-Af Amer) (>60) BUN/Creatinine Ratio (8-20) Glucose (70-100) mg/dL Lactic Acid (0.5-2.0) mmol/L Calcium (8.6-10.3) mg/dL Total Bilirubin (0.2-1.0) mg/dL AST (13-39) U/L ALT (7-52) U/L Alkaline Phosphatase (34-104) U/L Total Creatine Kinase (10-223) U/L CK-MB (CK-2) Troponin I C-Reactive Protein (< 5.00) mg/L Total Protein (6.4-8.9) g/dL Albumin (3.2-5.2) g/dL Globulin (2-4) g/dL Albumin/Globulin Ratio (1-3) Assess/Plan/Problems-Billing Assessment: 76 year old gentleman admitted with acute hypoxic respiratory failure due to aspiration pneumonia in setting of progressive supranuclear palsy - Patient Problems (1) Progressive supranuclear palsy Comment: prognosis is grave and deteriorating. 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
[2016-08-05] MEDS: Acetaminophen SUPP* 650 MG SUPP PR PRN (00:27)
[2016-08-05] MEDS: Enoxaparin(*) 80 MG/0.8 ML SYR SUBCUT SCH ×2 (07:41→19:32)
[2016-08-05] MEDS: Famotidine SUSP* 40 MG/5 ML ORAL.SUSP G TUBE SCH (12:14)
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
[2016-08-05] MEDS ORDERED: Ketorolac INJ* 15 MG/ML 1 ML VIAL IV PUSH ONE (19:59)
[2016-08-06] MEDS: Enoxaparin(*) 80 MG/0.8 ML SYR SUBCUT SCH (06:03)
[2016-08-06 06:20] LABS: Hematocrit 31 % (42-52); Hemoglobin 10.1 g/dl (14.0-18.0); Mean Corpuscular HGB Conc 33 g/dl (31-36); Mean Corpuscular Hemoglobin 28 pg (27-31); Mean Corpuscular Volume 86 fL (80-94); Mean Platelet Volume 8 um3 (7.4-10.4); Red Blood Count 3.62 10^6/ul (4.0-5.4); Red Cell Distribution Width 14 % (10.5-15); White Blood Count 11.1 10^3/ul (3.5-10.8)
[2016-08-06 06:31] LABS: Calcium 8.3 mg/dL (8.6-10.3); EGFR African American 253.6 (>60); EGFR Non-African American 197.2 (>60)
[2016-08-06] MEDS: Famotidine SUSP* 40 MG/5 ML ORAL.SUSP G TUBE SCH (09:59)
[2016-08-06 10:01] VITALS: BP 183/84
--- NOTE | 2016-08-06 10:42 | PN ---
Subjective Date of Service: 08/06/16 Interval History: Patient unresponsive. Objective Active Medications: Acetaminophen (Tylenol Supp*) 650 mg [place] Q6H PRN PRN Reason: PAIN Last Admin: 08/05/16 00:27 Dose: 650 mg Clonidine HCl (Wgsfkayk-Awq-7 0.1 Mg Patch*) 0.1 mg TRANSDERM Q7D [facility] Last Admin: 08/04/16 13:25 Dose: 1 patch Enoxaparin Sodium (Lovenox(*)) 80 mg SUBCUT 0600,1800 [facility] Last Admin: 08/06/16 06:03 Dose: Not Given Famotidine (Pepcid Susp*) 20 mg G TUBE DAILY [facility] Last Admin: 08/06/16 09:59 Dose: Not Given Potassium Chloride/Dextrose (D5w 1/2 Ns Kcl 20 Meq 1000 Ml*) 1,000 mls @ 75 mls /hr IV PER RATE [facility] Multi-Ingredient Mouthwash/Gargle (Biotene Dry Mouth Oral Rinse(Nf)) 15 ml MT Q2H PRN PRN Reason: DRY MOUTH Last Admin: 08/01/16 16:15 Dose: 15 ml Vital Signs 08/05/16 08/05/16 08/05/16 11:13 15:18 20:00 Temperature 99.6 F Pulse Rate 78 81 Respiratory 22 18 22 Rate Blood Pressure 150/77 162/79 (mmHg) O2 Sat by Pulse 98 94 Oximetry 08/05/16 08/06/16 08/06/16 23:29 07:44 08:00 Temperature 99.7 F 99.3 F Pulse Rate 70 68 Respiratory 36 22 16 Rate Blood Pressure 161/77 183/84 (mmHg) O2 Sat by Pulse 99 94 Oximetry Oxygen Devices in Use Now: Nasal Cannula Appearance: Unresponsive to voice or light touch. Partly up in bed. Looks comfortable. Not moving. Eyes: No Scleral Icterus Ears/Nose/Mouth/Throat: Clear Oropharnyx, Mucous Membranes Moist Neck: NL Appearance and Movements; NL JVP, No Thyroid Enlargement, Masses Respiratory: Symmetrical Chest Expansion and Respiratory Effort, Clear to Auscultation, Clear to Percussion Cardiovascular: NL Sounds; No Murmurs; No JVD, RRR, No Edema, - Extremities: No Edema, No Clubbing, Cyanosis, - Skin: No Rash or Ulcers, No Nodules or Sclerosis, - Neurological: - - Unresponsive to voice or light touch. Gaze fixed, midline. Not moving. No tremor. Result Diagrams: 08/06/16 05:48 08/06/16 05:48 Additional Lab and Data: Lab Results 07/23/16 07/23/16 07/23/16 Range/Units 11:32 11:32 11:32 WBC 20.1 H (3.5-10.8) 10^3/ul RBC 5.74 H (4.0-5.4) 10^6/ul Hgb 16.2 (14.0-18.0) g/dl Hct 51 (42-52) % MCV 89 (80-94) fL MCH 28 (27-31) pg MCHC 32 (31-36) g/dl RDW 15 (10.5-15) % Plt Count 374 (150-450) 10^3/ul MPV 9 (7.4-10.4) um3 Neut % (Auto) 90.7 H (38-83) % Lymph % (Auto) 4.4 L (25-47) % [place] % (Auto) 4.6 (1-9) % Eos % (Auto) 0 (0-6) % Baso % (Auto) 0.3 (0-2) % Absolute Neuts (auto) 18.3 H (1.5-7.7) 10^3/ul Absolute Lymphs (auto) 0.9 L (1.0-4.8) 10^3/ul Absolute Monos (auto) 0.9 H (0-0.8) 10^3/ul Absolute Eos (auto) 0 (0-0.6) 10^3/ul Absolute Basos (auto) 0.1 (0-0.2) 10^3/ul Absolute Nucleated RBC 0.03 10^3/ul Nucleated RBC % 0.1 APTT (26.0-36.3) seconds ABG pH (7.35-7.45) ABG pCO2 (35-45) mmHg ABG pO2 (80-100) mmHg ABG HCO3 (19-31) mmol/L ABG O2 Saturation (95-98) % ABG Base Excess (-2.0-2.0) O2 Delivery Device Sodium Pending Potassium 3.2 L (3.5-5.0) mmol/L Chloride 120 H (101-111) mmol/L Carbon Dioxide 28 (22-32) mmol/L Anion Gap Pending BUN 34 H (6-24) mg/dL Creatinine 1.22 H (0.67-1.17) mg/dL Est GFR ( Amer) 74.1 (>60) Est GFR (Non-Af Amer) 57.6 (>60) BUN/Creatinine Ratio 27.9 H (8-20) Glucose 108 H (70-100) mg/dL Lactic Acid 1.6 (0.5-2.0) mmol/L Calcium 10.0 (8.6-10.3) mg/dL Total Bilirubin 1.00 (0.2-1.0) mg/dL AST 61 H (13-39) U/L ALT 48 (7-52) U/L Alkaline Phosphatase 111 H (34-104) U/L Total Creatine Kinase 283 H (10-223) U/L CK-MB (CK-2) Pending Troponin I Pending C-Reactive Protein 251.52 H (< 5.00) mg/L Total Protein 8.8 (6.4-8.9) g/dL Albumin 3.8 (3.2-5.2) g/dL Globulin 5.0 H (2-4) g/dL Albumin/Globulin Ratio 0.8 L (1-3) 07/23/16 07/23/16 Range/Units 11:32 11:37 WBC (3.5-10.8) 10^3/ul RBC (4.0-5.4) 10^6/ul Hgb (14.0-18.0) g/dl Hct (42-52) % MCV (80-94) fL MCH (27-31) pg MCHC (31-36) g/dl RDW (10.5-15) % Plt Count (150-450) 10^3/ul MPV (7.4-10.4) um3 Neut % (Auto) (38-83) % Lymph % (Auto) (25-47) % [place] % (Auto) (1-9) % Eos % (Auto) (0-6) % Baso % (Auto) (0-2) % Absolute Neuts (auto) (1.5-7.7) 10^3/ul Absolute Lymphs (auto) (1.0-4.8) 10^3/ul Absolute Monos (auto) (0-0.8) 10^3/ul Absolute Eos (auto) (0-0.6) 10^3/ul Absolute Basos (auto) (0-0.2) 10^3/ul Absolute Nucleated RBC 10^3/ul Nucleated RBC % APTT 38.2 H (26.0-36.3) seconds ABG pH 7.44 (7.35-7.45) ABG pCO2 34 L (35-45) mmHg ABG pO2 125 H (80-100) mmHg ABG HCO3 24.5 (19-31) mmol/L ABG O2 Saturation 99.3 H (95-98) % ABG Base Excess -0.5 (-2.0-2.0) O2 Delivery Device 5 lnc Sodium Potassium (3.5-5.0) mmol/L Chloride (101-111) mmol/L Carbon Dioxide (22-32) mmol/L Anion Gap BUN (6-24) mg/dL Creatinine (0.67-1.17) mg/dL Est GFR ( Amer) (>60) Est GFR (Non-Af Amer) (>60) BUN/Creatinine Ratio (8-20) Glucose (70-100) mg/dL Lactic Acid (0.5-2.0) mmol/L Calcium (8.6-10.3) mg/dL Total Bilirubin (0.2-1.0) mg/dL AST (13-39) U/L ALT (7-52) U/L Alkaline Phosphatase (34-104) U/L Total Creatine Kinase (10-223) U/L CK-MB (CK-2) Troponin I C-Reactive Protein (< 5.00) mg/L Total Protein (6.4-8.9) g/dL Albumin (3.2-5.2) g/dL Globulin (2-4) g/dL Albumin/Globulin Ratio (1-3) Assess/Plan/Problems-Billing Assessment: 76 year old gentleman admitted with acute hypoxic respiratory failure due to aspiration pneumonia in setting of progressive supranuclear palsy Has been seen by neurology and ENT, who agree that the patient has an advanced and untreatable neurodegenerative disorder that results is disordered swallowing and predisposes to recurrent pulmonary aspiration. - Patient Problems (1) DVT (deep venous thrombosis) Current Visit: Yes Status: Acute Code(s): I82.409 - ACUTE EMBOLISM AND THOMBOS UNSP DEEP VN UNSP LOWER EXTREMITY SNOMED Code(s): 461989997 Comment: daughter refused lovenox, although epistaxis basically resolved, only scant black blood obtained from oral suctioning. I will discuss with family when they are present. I have d/c'd the order as all doses have been refused. I ordered SQ heparin. (2) Dementia Current Visit: No Status: Chronic Code(s): F03.90 - UNSPECIFIED DEMENTIA WITHOUT BEHAVIORAL DISTURBANCE SNOMED Code(s): 58864919 Comment: As of 08/06/16, in a vegatative state. 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 (3) Pneumonia Current Visit: Yes Status: Acute Priority: High Onset Date: 03/18/14 Code(s): J18.9 - PNEUMONIA, UNSPECIFIED ORGANISM SNOMED Code(s): 327796010 Comment: Likely was due to aspiriation. Patient not alert enough to eat or drink, and would not benefit from PEG tube. (4) Epistaxis Current Visit: Yes Status: Acute Code(s): R04.0 - EPISTAXIS SNOMED Code(s) : 74652739 Comment: I will discuss the issue of either DVT prophylaxis or full anticoagulation with the daughter when she is available. Status and Disposition: \ Patient accepted by Dr. Baugh at [facility]. Family will arrange transport.
[2016-08-06] MEDS ORDERED: D5W 1/2 NS KCl 20 Meq 1000 ML* 1,000 ML IV SCH (11:00)
--- NOTE | 2016-08-06 11:49 | PN ---
Progress Note - Progress Note Note: Time spent on discharge 55 minutes.
[2016-08-06] MEDS ORDERED: Heparin VIAL(*) 5000 UNITS/ML VIAL (FIVE THOUSAND) SUBCUT SCH (14:00)
--- NOTE | 2016-08-07 01:22 | DS ---
DISCHARGE SUMMARY: DATE OF ADMISSION: DATE OF DISCHARGE: 08/06/16 HISTORY OF PRESENT ILLNESS: This 76-year-old man came with a chief complaint of shortness of breath. The patient had labored breathing, was dehydrated, and with significant upper airway secretions. He was admitted to the intensive care unit. The family did not agree to intubation, which at the time seemed the appropriate treatment; however, with antibiotics, he did have significant improvement and was able to come out of the intensive care unit. He was given piperacillin and tazobactam. The patient remained in an essentially vegetative state. The family stated they were not happy with the care here and requested transfer to another facility. Dr. Xiong, Hospitalist at [facility], accepted the patient. The family is arranging for transport themselves. This would not be considered EMTALA transfer, but will be handled as a discharge; however, the ambulance who will bring him directly from here to [facility] will be an ALS transport. His IV access will be left in place. He will be sent with hospital records. FINAL DIAGNOSES: 1. Aspiration pneumonia. 2. Supranuclear palsy. 3. Dementia. 4. History of Parkinson disease. 5. Deep venous thrombosis, right leg. 6. Epistaxis. MEDIATIONS ON DISCHARGE: 1. Clonidine 0.1 mg patch every 7 days. 2. Heparin 5000 units subcu every 8 hours. 3. Acetaminophen suppository 650 mg every 6 hours p.r.n. 4. IV at the time that he was discharged was D5 half normal saline with 20 mEq of potassium chloride per liter at 75 mL per hour. CC: Dr. Reid * [id number]/[facility] #: [id number] LINDA
== END 2016-08-06 14:00 | disposition short-term general hospital (02) | DRG 177 ==
LOC: ED 11:14 → ICU 13:25 → MED 07-28 15:15 → ICU 07-28 20:00 → MEDTELE 08-01 12:29
PROVIDERS: ADMIT Internal Medicine Critical Care Medicine; ATTEND Internal Medicine
DX: J69.0 Pneumonitis due to inhalation of food and vomit (principal); J96.01 Acute respiratory failure with hypoxia; N17.9 Acute kidney failure, unspecified; G93.40 Encephalopathy, unspecified; E87.4 Mixed disorder of acid-base balance; R13.10 Dysphagia, unspecified; G23.1 Progressive supranuclear ophthalmoplegia [Steele-Richardson-Olszewski]; E87.0 Hyperosmolality and hypernatremia; I82.411 Acute embolism and thrombosis of right femoral vein; G31.83 Neurocognitive disorder with Lewy bodies; F02.80 Dementia in other diseases classified elsewhere, unspecified severity, without behavioral disturbance, psychotic disturbance, mood disturbance, and anxiety; I10 Essential (primary) hypertension; E78.5 Hyperlipidemia, unspecified; E86.0 Dehydration; E86.1 Hypovolemia; R60.0 Localized edema; E87.6 Hypokalemia; G25.81 Restless legs syndrome; R04.0 Epistaxis; Z28.82 Immunization not carried out because of caregiver refusal; Z79.01 Long term (current) use of anticoagulants
CPT/HCPCS: 36415; 36600; 71010; 80048; 80053; 81003; 82550; 82553; 82803; 83605; 83735; 83880; 84100; 84145; 84484; 85025; 85027; 85730; 86140; 87040; 87070; 87077; 87186; 87205; 87502; 87641; 93005; 93970; 94760; A9270-GY; J0360; J1644; J1650; J1885; J2270; J2543; J2704; J3010; J3370; J3480

== ENCOUNTER 2016-09-19 18:14 | Inpatient (IN) | payer MEDICARE, OTHER ==
[2016-09-19] MEDS ORDERED: NS 0.9% 1000 ML* 2,300 ML IV ONE (19:50)
[2016-09-19] MEDS ORDERED: Morphine INJ* 4 MG/ML 1 ML SYRINGE IV ONE (19:53)
[2016-09-19] MEDS ORDERED: Cefepime(*) 2 GM in NS 0.9% 50 ML* 50 ML IVPB ONE (19:53)
[2016-09-19] MEDS ORDERED: Ondansetron INJ* 2 MG/ML VIAL IV ONE (19:53)
[2016-09-19] MEDS ORDERED: metroNIDAZOLE IV 500 MG/100ML* 500 MG/100 ML BAG IVPB ONE (19:53)
[2016-09-19] MEDS ORDERED: NS 0.9% 50 ML* 50 ML ONE (19:58)
[2016-09-19] MEDS ORDERED: Vancomycin(*) 1,000 MG VIAL IVPB SCH (20:00)
[2016-09-19] MEDS ORDERED: Lidocaine 2% JELLY* 6 ML JELLY TOPICAL ONE (20:00)
[2016-09-19] MEDS ORDERED: Acetaminophen SUPP* 650 MG SUPP PR ONE (20:27)
[2016-09-19 21:01] LABS: Albumin 2.8 g/dL (3.2-5.2); Calcium 8.9 mg/dL (8.6-10.3); EGFR African American 207.4 (>60); EGFR Non-African American 161.2 (>60); Globulin 4.2 g/dL (2-4); Potassium 3.8 mmol/L (3.5-5.0); Total Bilirubin 0.5 mg/dL (0.2-1.0)
[2016-09-19 21:02] LABS: Troponin I 0.03 ng/mL (<0.04)
--- NOTE | 2016-09-19 21:06 | RAD ---
INDICATION: Elevated white blood cell count. COMPARISON: Comparison is made with a prior study from August 10, 2016. TECHNIQUE: A portable view of the chest was obtained. FINDINGS: The heart is within normal limits in size for this portable exam. The lungs are clear. No pleural effusion is seen. There appears to be an old fracture of the proximal right humerus. IMPRESSION: NO EVIDENCE FOR ACUTE DISEASE.
[2016-09-19] MEDS ORDERED: Acetaminophen SUPP* 120 MG SUPP ONE (21:39)
--- NOTE | 2016-09-19 23:31 | HP ---
H&P (Free Text) History and Physical: PCP: Misty Reid MD Date/Time of Evaluation: 09/19/2016 [id number] CC: leukocytosis, sacral decubitus HPI: Mr Chappell is a 76YO male with progressive supranuclear palsy s/p PEG with recent admission for severe aspiration pneumonia who was seen at wound clinic today where blood work was drawn revealing a WBC of 20.1k 85.7% neutrophils prompting the wound clinic to call and request he be seen at [facility]. During my evaluation, he is unresponsive, does not open his eyes when being rolled onto his side to examine his sacrum, and does not make any verbalizations. His daughter (HCP) is present and relates he has been home from [facility] for ~ 2 week where he was transferred from [facility]. There a PEG was placed for chronic aspiration ~3weeks ago. She relates his decubitus ulcer has been progressively worsening, but there has been no F/C, N/V, or other issues. She relates that at home he is "conversive and animated" even earlier today. He takes an organic tube feed via frequent small bolus which she will bring in the AM. We had a lengthy discussion regarding his code status and she relates that under no circumstance is he to be intubated, but that CPR/cardioversion was acceptable. She did request that CPR, if necessary, be done 'lightly' to prevent rib fractures and was informed that if CPR is necessary it will be performed with the intent to preserve his life, not suboptimally to prevent secondary/ foreseeable collateral injury and she expressed understanding/acceptance. PMedHx Parkinsonism HTN HLD aspiration pneumonia s/p PEG placement RLS Ambulatory Orders Acetaminophen SUPP* [Tylenol Supp*] 650 mg PA Q6H PRN #0 supp 08/06/16 cloNIDine 0.1 MG PATCH* [Cdeuhehg-Gwn-8 0.1 mg Patch*] 0.1 mg TRANSDERM Q7D patch 08/06/16 Lidocaine 2% JELLY* 1 applic TOPICAL DAILY #1 tube 09/19/16 Allergies No Known Allergies Allergy (Verified 03/18/14 15:46) PSurgHx R rotator cuff repair PEG placement L-spine surgery SocHx: no tobacco, alcohol, or recreational drugs; lives with his daughter; DNI code status FamHx: positive for CAD, HTN, HLD ROS: as above, otherwise reviewed and all were negative Constitutional: NAD, normally developed, chronically-ill appearing white male vitals: Vital Signs Temp 37.5 C 09/19/16 19:18 Pulse 88 09/19/16 19:18 Resp 18 09/19/16 19:18 BP 109/60 09/19/16 19:18 Pulse Ox 97 09/19/16 19:18 Intake & Output 09/18/16 09/19/16 09/19/16 23:59 11:59 23:59 Intake Total 100 Balance 100 Weight 68.039 kg Intake: IV Fluids 100 HEENM: atraumatic; sclera/conjunctiva: non-icteric/clear; blephara: sunken; hearing: unable to assess; oropharynx: clear, dry Neck: soft tissue: no nuchal rigidity; thyroid: normal Pulmonary: clear to auscultation bilaterally, good aeration, no accessory muscle use CV: RR/RR, normal S1S2, no carotid bruit, no jugular venous distention, 2+ B DP/ PT, no edema Abdominal: soft, non-distended, non-tender, no rebound/guarding/rigidity, normoactive bowel sounds, no hepatosplenomegaly or masses, no costovertebral angle tenderness Musculoskeletal: general: grossly intact; gait: non-ambulatory at baseline Integumental: ~6cm round sacral decubitus with malodor with tip of the coccyx visible covered with thin tissue Psychiatric orientation: somnolent, disoriented affect: somnolent mood: acquiescent eye contact: absent content: absent responses: absent insight: poor to absent currently Testing: Lab Results 09/19/16 09/19/16 09/19/16 Range/Units 20:30 20:30 20:30 INR (Anticoag Therapy) 1.17 H (0.89-1.11) APTT 35.6 (26.0-36.3) seconds Sodium 137 (133-145) mmol/L Potassium 3.8 (3.5-5.0) mmol/L Chloride 101 (101-111) mmol/L Carbon Dioxide 29 (22-32) mmol/L Anion Gap 7 (2-11) mmol/L BUN 14 (6-24) mg/dL Creatinine 0.50 L (0.67-1.17) mg/dL Est GFR ( Amer) 207.4 (>60) Est GFR (Non-Af Amer) 161.2 (>60) BUN/Creatinine Ratio 28.0 H (8-20) Glucose 101 H (70-100) mg/dL Lactic Acid 1.4 (0.5-2.0) mmol/L Calcium 8.9 (8.6-10.3) mg/dL Total Bilirubin 0.50 (0.2-1.0) mg/dL AST 20 (13-39) U/L ALT 17 (7-52) U/L Alkaline Phosphatase 98 (34-104) U/L Troponin I 0.03 (<0.04) ng/mL Total Protein 7.0 (6.4-8.9) g/dL Albumin 2.8 L (3.2-5.2) g/dL Globulin 4.2 H (2-4) g/dL Albumin/Globulin Ratio 0.7 L (1-3) ECG, personally reviewed: NSR rate 84, artifactual baseline impedes interpretation, T-wave inversions V1-3, similar to previous CXR, personally reviewed: IMPRESSION: NO EVIDENCE FOR ACUTE DISEASE. Impression: 76M HX aspiration pneumonia, Parkinsonism presenting from wound clinic for leukocytosis thought to be 2nd sacral decubitus DIAGNOSIS & PLAN Primary leukocytosis thought to be 2nd sacral decubitus : wound, blood, sputum, & urine CXs : IV vancomycin, cefepime & metronidazole : IVFs : consider work up for acute osteomyelitis in AM : wound care consult : supportive care suspect protein calorie malnutrition : check pre-albumin Secondary recent aspiration pneumonia s/p PEG : continue tube feeding as current HTN : continue clonidine patch once reconciled Admission Rational: inpatient for severely debilitated patient with new leukocytosis 2nd sacral decubitus vs other as yet unidentified source, inappropriate for outpatient setting 2nd very high risk of rapid decompensation , morbidity, & mortality DVTp: SCDs & heparin GTT Code Status: DNI, MOLST filled out HCP: daughterLydia
[2016-09-19] MEDS ORDERED: NS 0.9% 1000 ML* 1,000 ML IV SCH (23:45)
[2016-09-19] MEDS ORDERED: Albuterol 2.5 MG/3 ML NEB.SOL* (0.083%) INH PRN (23:46)
[2016-09-19] MEDS ORDERED: Ondansetron INJ* 2 MG/ML VIAL IV PRN (23:47)
[2016-09-20] MEDS ORDERED: Vancomycin per Pharmacy* NOTE FOLLOW UP SCH (01:00)
--- NOTE | 2016-09-20 01:34 | ED ---
Edvin Scherer Rebecca, scribed for Kaur Bryan MD on 09/19/16 at 1920 . Complex/Multi-Sys Presentation - HPI Summary HPI Summary: Pt is a 76 y/o M who presents to ED after being referred from the wound clinic with an elevated WBC. He presented to the wound clinic earlier today, had the wound debrided and proceeded to be referred to the ED. Per daughter, the physician at the wound clinic expressed the need for IV Abx. Daughter states she would not like him admitted, as her preference is for her to receive IV Abx in the ED and be D/C to home with oral Abx. She additionally requests lidocaine for the pt, to treat pain associated with debridement, as lidocaine has previously alleviated pain. Denies changes in BM frequency. Denies any other complaints. Confirms he has been taking in formula regularly via his G-tube. Daughter reports that he was recently bedbound for 6 weeks to treat pneumanitis as an inpatient. No PMHx DM. PCP is Dr. Reid. - History Of Current Complaint Chief Complaint: EDGeneral Time Seen by Provider: 09/19/16 19:35 Hx Obtained From: Patient, Family/Personal Lines Insurance Agent - Daughter Onset/Duration: Sudden Onset Severity Currently: Mild Severity Initially: Mild Character: Dull Aggravating Factor(s): Debridement Alleviating Factor(s): Lidocaine Associated Signs And Symptoms: Positive: Other - Elevated WBC; Denies changes in BM frequency Related History: Recent Hospitalization - 6 weeks to treat pneumanitis - bedridden during stay - Allergies/Home Medications Allergies/Adverse Reactions: Allergies Allergy/AdvReac Type Severity Reaction Status Date / Time No Known Allergies Allergy Verified 09/20/16 00:54 PMH/Surg Hx/FS Hx/Imm Hx Endocrine/Hematology History: Denies: Hx Diabetes, Hx Systemic Lupus Erythematosus Cardiovascular History: Reports: Hx Hypertension - mild Denies: Hx Congestive Heart Failure, Hx Pacemaker/ICD GI History: Comment Only: Other GI Disorders - PARKINSONS DISEASE History: Denies: Hx Dialysis, Hx Renal Disease Musculoskeletal History: Reports: Hx Back Problems - prior LB surgery, left him with L foot drop, Other Musculoskeletal History - parkinsons Denies: Hx Rheumatoid Arthritis Sensory History: Denies: Hx Hearing Aid Neurological History: Reports: Other Neuro Impairments/Disorders - parkinsons Psychiatric History: Reports: Hx Depression Denies: Hx Panic Disorder - Cancer History Hx Chemotherapy: No - Surgical History Surgery Procedure, Year, and Place: RIGHT ROTATOR CUFF SURGERY, back surgery in distant past Hx Anesthesia Reactions: No - Immunization History Date of Tetanus Vaccine: unk Date of Influenza Vaccine: unk Infectious Disease History: No Infectious Disease History: Denies: Hx Clostridium Difficile, Hx Hepatitis, Hx Human Immunodeficiency Virus (HIV), Hx of Known/Suspected MRSA, Hx Shingles, Hx Tuberculosis, Hx Known/ Suspected VRE, Hx Known/Suspected VRSA, History Other Infectious Disease, Traveled Outside the [place] in Last 30 Days - Family History Known Family History: Positive: Diabetes - per EMR, brother with positive hx of DM, Other - Per EMR, brother with positive hx of pancreatic CA - Social History Lives: With Family Hx Substance Use: No Substance Use Type: Reports: None Hx Tobacco Use: No Smoking Status (MU): Never Smoked Tobacco Review of Systems Positive: Other - Elevated WBC Negative: frequency - BM All Other Systems Reviewed And Are Negative: Yes Physical Exam - Summary Physical Exam Summary: General: Chronically ill appearing and mildly uncomfortable. Skin: Warm. A gaping decubitus ulcer that is approximately 10 inches long by 6 inches wide. Good granulation tissue definitely with feces inside the wound. Eyes: EOMI, ANCELMO ENT: Pharynx normal, TMs normal Neck: Supple, nontender Respiratory: CTA, breath sounds present, no rhonchi, no wheezes, no rales Cardiovascular: RRR, no murmur, no rub, no gallop Abdomen: Soft, nontender, Non-distended, no guarding, no rebound Bowel: Present Musculoskeletal: MATT, No edema Neuro: Sensory/motor intact, A&Ox3, CN intact 2-12 Psych: Affect/mood appropriate Triage Information Reviewed: Yes Vital Signs On Initial Exam: Initial Vitals Temp Pulse Resp BP Pulse Ox 98.2 F 83 14 119/63 100 09/19/16 18:17 09/19/16 18:17 09/19/16 18:17 09/19/16 18:17 09/19/16 18:17 Vital Signs Reviewed: Yes Diagnostics - Vital Signs Vital Signs Temp Pulse Resp BP Pulse Ox 09/19/16 18:17 98.2 F 83 14 119/63 100 - Laboratory Lab Results: Lab Results 09/19/16 09/19/16 09/19/16 Range/Units 20:30 20:30 20:30 INR (Anticoag Therapy) 1.17 H (0.89-1.11) APTT 35.6 (26.0-36.3) seconds Sodium 137 (133-145) mmol/L Potassium 3.8 (3.5-5.0) mmol/L Chloride 101 (101-111) mmol/L Carbon Dioxide 29 (22-32) mmol/L Anion Gap 7 (2-11) mmol/L BUN 14 (6-24) mg/dL Creatinine 0.50 L (0.67-1.17) mg/dL Est GFR ( Amer) 207.4 (>60) Est GFR (Non-Af Amer) 161.2 (>60) BUN/Creatinine Ratio 28.0 H (8-20) Glucose 101 H (70-100) mg/dL Lactic Acid 1.4 (0.5-2.0) mmol/L Calcium 8.9 (8.6-10.3) mg/dL Total Bilirubin 0.50 (0.2-1.0) mg/dL AST 20 (13-39) U/L ALT 17 (7-52) U/L Alkaline Phosphatase 98 (34-104) U/L Troponin I 0.03 (<0.04) ng/mL Total Protein 7.0 (6.4-8.9) g/dL Albumin 2.8 L (3.2-5.2) g/dL Globulin 4.2 H (2-4) g/dL Albumin/Globulin Ratio 0.7 L (1-3) Result Diagrams: 09/19/16 20:30 Lab Statement: Any lab studies that have been ordered have been reviewed, and results considered in the medical decision making process. - Radiology CXR Xray Interpretation: No Acute Changes - NO EVIDENCE FOR ACUTE DISEASE. Radiology Interpretation Completed By: Radiologist - EKG 2101 Cardiac Rate: NL - 84 bpm EKG Rhythm: Sinus Rhythm - RBBB EKG Interpretation: RBBB with artifacts present Re-Evaluation - Re-Evaluation First Eval Re-Evaluation Time: 20:26 Change: Unchanged Comment: Reassured the daughter that what is being done is adequate care and that records have been reviewed. Explained what has been done thus far and the rationale for such actions. Explained why further blood work is necessary for the pt's care. Second Eval Re-Evaluation Time: 21:25 Change: Unchanged Comment: Further discussion with patient and supervisor travel information center about pt needing likely 48-72 hours [place] [address] and what needs to be done. Pt given the choices of understanding that this is needed and were fine with the pt going home, or if it is their preference to transfer the pt. But, we have determined we have adequate services here. It is fine if they are uncomfortable with services here, we can transfer pt from [facility]. Third Eval Re-Evaluation Time: 23:00 Change: Unchanged Comment: Pt and daughter agree to admission. Complex Multi-Symp Course/Dx Course Of Treatment: 76 yo male brought in by daughter after receving call from wound care about high white count. His wbc was 20, there were many detailed conversations with the daughter and her as well as nursing supervisor travel information center about his care and eventually the daughter agreed to admission for iv abx - Diagnoses Provider Diagnoses: Sepsis, Decubitus ulcer - Physician Notifications Discussed Care Of Patient With: Dr. [place], hospitalist, who accepts pt for admisison. Time Discussed With Above Provider: 23:05 Discharge - Discharge Plan Condition: Guarded Disposition: ADMITT[facility] TO [facility] The documentation as recorded by the Edvin pepe Rebecca accurately reflects the service I personally performed and the decisions made by me, Kaur Bryan MD.
[2016-09-20] MEDS ORDERED: Vancomycin(*) 1,250 MG in NS 0.9% 250 ML* 250 ML IVPB ONE (02:00)
[2016-09-20 03:31] LABS: Urine Bacteria Absent (Absent); Urine Bilirubin Negative (Negative); Urine Glucose Negative (Negative); Urine Nitrite Negative (Negative)
[2016-09-20] MEDS: metroNIDAZOLE IV 500 MG/100ML* 500 MG/100 ML BAG IVPB SCH ×3 (05:00→21:24)
[2016-09-20] MEDS: Heparin VIAL(*) 5000 UNITS/ML VIAL (FIVE THOUSAND) SUBCUT SCH ×3 (05:04→22:03)
[2016-09-20 05:38] LABS: Hematocrit 26 % (42-52); Hemoglobin 8.2 g/dl (14.0-18.0); Mean Corpuscular HGB Conc 32 g/dl (31-36); Mean Corpuscular Hemoglobin 27 pg (27-31); Mean Corpuscular Volume 85 fL (80-94); Mean Platelet Volume 7 um3 (7.4-10.4); Red Blood Count 3.06 10^6/ul (4.0-5.4); Red Cell Distribution Width 16 % (10.5-15); White Blood Count 19.6 10^3/ul (3.5-10.8)
[2016-09-20 05:52] LABS: BUN/Creatinine Ratio 28.9 (8-20); Calcium 8.1 mg/dL (8.6-10.3); EGFR African American 284.6 (>60); EGFR Non-African American 221.3 (>60); Potassium 3.5 mmol/L (3.5-5.0)
[2016-09-20] MEDS: Acetaminophen SUPP* 650 MG SUPP PR PRN ×2 (06:15→22:03)
[2016-09-20] MEDS ORDERED: Ketorolac INJ* 15 MG/ML 1 ML VIAL IV PUSH ONE (07:40)
[2016-09-20] MEDS ORDERED: Pantoprazole IV* 40 MG IV SCH (09:00)
[2016-09-20] MEDS: Cefepime(*) 2 GM in NS 0.9% 50 ML* 50 ML IVPB SCH ×2 (10:28→22:40)
[2016-09-20] MEDS: Famotidine SUSP* 40 MG/5 ML ORAL.SUSP PEG TUBE SCH (10:29)
[2016-09-20] MEDS ORDERED: Vancomycin(*) 1,000 MG in NS 0.9% 250 ML* 250 ML IVPB SCH (10:30)
[2016-09-20] MEDS: NS 0.9% 1000 ML* 1,000 ML IV SCH (12:25)
--- NOTE | 2016-09-20 12:30 | PN ---
Subjective Date of Service: 09/20/16 Interval History: Pt is nonverbal during my interaction, although daughter present in the room states that pt is able to communicate usually with simple words. No new development during the night Objective Active Medications: Acetaminophen (Tylenol Supp*) 650 mg SC Q6H PRN PRN Reason: FEVER/PAIN Last Admin: 09/20/16 06:15 Dose: 650 mg Albuterol (Ventolin 2.5 Mg/3 Ml Neb.Edwige*) 2.5 mg INH Q2H PRN PRN Reason: SOB/WHEEZING Famotidine (Pepcid Susp*) 20 mg PEG TUBE DAILY [facility] Last Admin: 09/20/16 10:29 Dose: 20 mg Heparin Sodium (Porcine) (Heparin Vial(*)) 5,000 units SUBCUT Q8HR [facility] Last Admin: 09/20/16 05:04 Dose: 5,000 units Cefepime HCl 2 gm/ Sodium (Chloride) 50 mls @ 100 mls/hr IVPB Q12H [facility] Last Admin: 09/20/16 10:28 Dose: 100 mls/hr Metronidazole/Sodium Chloride (Flagyl 500 Mg Ivpb*) 500 mg in 100 mls @ 100 mls /hr IVPB Q8H [facility] Last Admin: 09/20/16 05:00 Dose: 100 mls/hr Vancomycin HCl 1,000 mg/ (Sodium Chloride) 250 mls @ 166.667 mls/hr IVPB Q8H [facility] Last Admin: 09/20/16 11:21 Dose: 166.667 mls/hr Sodium Chloride (Ns 0.9% 1000 Ml*) 1,000 mls @ 75 mls/hr IV PER RATE [facility] Ondansetron HCl (Zofran Inj*) 4 mg IV Q6H PRN PRN Reason: NAUSEA Pharmacy Consult (Vancomycin Per Pharmacy*) 1 note FOLLOW UP .VANC PER PHARMACY [facility] Pharmacy Profile Note (Vancomycin Trough Check) 1 note FOLLOW UP 1000 ONE Stop: 09/21/16 10:01 Tramadol HCl (Ultram*) 25 mg FEED TUBE Q6H PRN PRN Reason: PAIN Vital Signs 09/20/16 09/20/16 09/20/16 00:00 00:01 00:12 Temperature Pulse Rate 91 91 91 Respiratory 26 27 22 Rate Blood Pressure 101/69 (mmHg) O2 Sat by Pulse 96 97 96 Oximetry 09/20/16 09/20/16 09/20/16 00:31 01:00 01:15 Temperature 98.3 F Pulse Rate 91 92 Respiratory 29 33 Rate Blood Pressure 97/61 95/80 (mmHg) O2 Sat by Pulse 96 96 Oximetry 09/20/16 09/20/16 09/20/16 01:37 02:02 05:51 Temperature 99.7 F 99.7 F 100.5 F Pulse Rate 91 91 90 Respiratory 22 22 16 Rate Blood Pressure 102/54 102/54 108/62 (mmHg) O2 Sat by Pulse 98 98 98 Oximetry 09/20/16 08:26 Temperature Pulse Rate Respiratory Rate Blood Pressure 118/72 (mmHg) O2 Sat by Pulse Oximetry Oxygen Devices in Use Now: None Appearance: 76 yo M, nonverbal, lying on his side, not following commmands, responds to touch Eyes: No Scleral Icterus, PERRLA Ears/Nose/Mouth/Throat: NL Teeth, Lips, Gums, Mucous Membranes Moist Neck: NL Appearance and Movements; NL JVP, Trachea Midline Respiratory: Symmetrical Chest Expansion and Respiratory Effort, Clear to Auscultation Cardiovascular: NL Sounds; No Murmurs; No JVD, RRR Abdominal: NL Sounds; No Tenderness; No Distention, No Hepatosplenomegaly, - - PEg in place Lymphatic: No Cervical Adenopathy Extremities: No Edema, No Clubbing, Cyanosis Skin: - - sacral decub at 8 cm in diam 4 cm in depth-deep to the sacral bone. Neurological: - - genralized weakness, no assymetry noted, nonverbal Result Diagrams: 09/20/16 05:10 09/20/16 05:10 Additional Lab and Data: Lab Results 09/19/16 09/19/16 09/19/16 Range/Units 20:30 20:30 20:30 INR (Anticoag Therapy) 1.17 H (0.89-1.11) APTT 35.6 (26.0-36.3) seconds Sodium 137 (133-145) mmol/L Potassium 3.8 (3.5-5.0) mmol/L Chloride 101 (101-111) mmol/L Carbon Dioxide 29 (22-32) mmol/L Anion Gap 7 (2-11) mmol/L BUN 14 (6-24) mg/dL Creatinine 0.50 L (0.67-1.17) mg/dL Est GFR ( Amer) 207.4 (>60) Est GFR (Non-Af Amer) 161.2 (>60) BUN/Creatinine Ratio 28.0 H (8-20) Glucose 101 H (70-100) mg/dL Lactic Acid 1.4 (0.5-2.0) mmol/L Calcium 8.9 (8.6-10.3) mg/dL Total Bilirubin 0.50 (0.2-1.0) mg/dL AST 20 (13-39) U/L ALT 17 (7-52) U/L Alkaline Phosphatase 98 (34-104) U/L Troponin I 0.03 (<0.04) ng/mL Total Protein 7.0 (6.4-8.9) g/dL Albumin 2.8 L (3.2-5.2) g/dL Globulin 4.2 H (2-4) g/dL Albumin/Globulin Ratio 0.7 L (1-3) Microbiology and Other Data: Microbiology 09/20/16 02:34 Skin and Soft Tissue MRSA/MSSA (PCR - Final Buttock Mrsa Negative S.aureus Negative Gram Stain - Final Assess/Plan/Problems-Billing Assessment: 76 year old gentleman with progressive supranuclear palsy, s/p PEG placement at [facility] within the past month, now with infected sacral decubitus. - Patient Problems (1) Progressive supranuclear palsy Comment: prognosis is grave and deteriorating. Daughter is aware about pt's prognosis and after a conversation with Dr. Moura who saw pt for his wound treatment, the daughter agreed to palliative care consult. Palliative care consult placed (2) Sacral decubitus ulcer, stage IV Comment: s/p debridement on 09/19/16 at wound care center. The ulcer is deep to the bone and with presumed osteomyelitis. Cont Cefepime and Flagyl appreciate Dr. Moura' involvement. wound care dressing recommendations ordered. After initial resistance from the daughter's side she agreed to treat her father 's pain with opioids. (3) DVT prophylaxis Comment: heparin sc (4) DNI (do not intubate) Status and Disposition: inpatient
--- NOTE | 2016-09-20 15:49 | CONS ---
SURGICAL CONSULTATION REPORT: DATE OF CONSULT: 09/20/16 REASON FOR CONSULT: Sacral decubitus ulcer. REQUESTING PHYSICIAN: Sharri Whittington MD HISTORY OF PRESENT ILLNESS: Mr. Becerra is an unfortunate 76-year-old gentleman with complex history, who has progressive supranuclear palsy. He was recently hospitalized for severe aspiration pneumonia and is known to have sacral decubitus ulcer for which he was seen at the wound clinic on September 19. The patient's wound clinic notes were obtained and he was initially being treated at [facility], then that was changed to [facility]. Over the past week, according to the daughter and the assistant director of nursing, the wound became foul smelling with drainage initially pink and then bloody and he was brought to the wound clinic yesterday for assessment. He had been through a course of IV antibiotics after leaving [place] and was discharged on amoxicillin which he finished about week or two ago. The patient was noted to have stool contaminating the wound. The wounds apparently have been present for a couple of months. He had debridement performed in the wound clinic yesterday, which was apparently tolerated well. Subsequent to the wound clinic visit, he had laboratory work drawn which was notable for WBCs of 20.1. He was directed to the [facility] Emergency Room, although the patient's daughter states she was reluctant to bring him back to the hospital. He was admitted to the hospitalist service, placed on IV antibiotics, and apparently, he is not found to have pneumonia. I was contacted for assistance in wound care management. PAST MEDICAL HISTORY: Significant for progressive supranuclear palsy, hypertension, hyperlipidemia, aspiration pneumonia, restless legs syndrome, decubitus ulcers, arthritis. PAST SURGICAL HISTORY: Right rotator cuff repair, back surgery, PEG tube placement. MEDICATIONS: Home meds include: 1. Clonidine. 2. Lidocaine jelly. 3. Tylenol suppositories. Currently, he is on: 1. Vancomycin. 2. Metronidazole. 3. Tramadol. 4. Albuterol. 5. Cefepime. ALLERGIES: None known. SOCIAL HISTORY: He currently lives with his daughter, requires [id number] care. PHYSICAL EXAM: He is lying in the hospital bed, appears to be in no acute distress with temperature of 100.5, blood pressure of 118/72, pulse of 90, respirations 16, O2 sat 98%. The dressings have just been applied, were not taken down. LABORATORY DATA: WBC is 19.6, hemoglobin 8.2, hematocrit 26, platelets 392. Chemistry is notable for albumin low at 2.8, prealbumin low at 7. IMPRESSION: A 76-year-old male with progressive supranuclear palsy, history of aspiration pneumonia, now sepsis likely due to decubitus of the sacrum. PLAN/RECOMMENDATION: I had a lengthy discussion with the daughter regarding her father. I explained the wound clinic recommendations, which include Santyl to the sacral wound and right trochanter daily after showering with calcium alginate applied over the Santyl on the sacrum, then covering with gauze and tape and repositioning every 2 hours. He needs to optimize nutrition. Continue antibiotics and consider imaging of the sacrum to evaluate for osteomyelitis. The majority of our discussion centered around the daughter's overall wishes for the patient in terms of prioritizing his comfort, and I discussed with her that involvement of the palliative care team would be in the best interest of the patient as well as herself. She was receptive to this and is willing to meet with them. [facility] will follow periodically. TIME FACTOR: Total time for this consultation was 42 minutes. Greater than 50 % was spent in [id number] discussion with the patient's daughter for counseling and coordination of care. CC: Jarvis Reid MD * [id number]/[facility] #: [id number] MTDD
[2016-09-20] MEDS: Morphine INJ* 2 MG/ML 1 ML SYRINGE IV PRN (16:25)
[2016-09-20] MEDS: Lidocaine 4% GEL* 10 GM TUBE TOPICAL PRN (16:26)
[2016-09-20] MEDS: Collagenase 250 MG/GM OINT* 30 GM TOPICAL SCH (16:28)
[2016-09-21] MEDS: NS 0.9% 1000 ML* 1,000 ML IV SCH (03:19)
[2016-09-21] MEDS: Acetaminophen SUPP* 650 MG SUPP PR PRN ×2 (04:00→22:03)
[2016-09-21] MEDS: metroNIDAZOLE IV 500 MG/100ML* 500 MG/100 ML BAG IVPB SCH ×3 (05:34→21:45)
[2016-09-21] MEDS: Heparin VIAL(*) 5000 UNITS/ML VIAL (FIVE THOUSAND) SUBCUT SCH ×3 (05:34→21:45)
[2016-09-21] MEDS ORDERED: Furosemide IV* 10 MG/ML 2 ML VIAL (20 MG) IV ONE (07:51)
[2016-09-21] MEDS ORDERED: Furosemide IV* 10 MG/ML 2 ML VIAL (20 MG) ONE (08:03)
--- NOTE | 2016-09-21 09:20 | RAD ---
Indication: Shortness of breath. Leukocytosis. Sacral decubitus ulcer. Comparison: September 19, 2016 Technique: Upright AP 0829 hours Report: Minimal reticular markings at the RIGHT lung most prominent in the basilar region without significant interval change. Grossly clear pleural spaces. Negative for pneumothorax.. Accessory azygos fissure in the medial RIGHT upper lung zone. Upper normal heart size. Unremarkable central pulmonary vasculature and mediastinal contours. Old fracture of the proximal RIGHT humerus. IMPRESSION: Mild patchy reticulonodular opacities in the RIGHT lung similar to the prior exam without volume loss may reflect inflammatory infiltrate.
[2016-09-21] MEDS: Morphine INJ* 2 MG/ML 1 ML SYRINGE IV PRN ×3 (09:50→21:41)
[2016-09-21] MEDS: Cefepime(*) 2 GM in NS 0.9% 50 ML* 50 ML IVPB SCH ×2 (09:51→23:18)
[2016-09-21] MEDS: Famotidine SUSP* 40 MG/5 ML ORAL.SUSP PEG TUBE SCH (09:59)
[2016-09-21] MEDS: Collagenase 250 MG/GM OINT* 30 GM TOPICAL SCH (10:00)
[2016-09-21] MEDS ORDERED: Vancomycin Trough Check NOTE FOLLOW UP ONE (10:00)
[2016-09-21 11:34] LABS: Add Diff/Slide Review? Slide Review Added; Comments Flag Yes; Hematocrit 28 % (42-52); Hemoglobin 8.7 g/dl (14.0-18.0); Mean Corpuscular HGB Conc 32 g/dl (31-36); Mean Corpuscular Hemoglobin 26 pg (27-31); Mean Corpuscular Volume 83 fL (80-94); Mean Platelet Volume 7 um3 (7.4-10.4); Red Blood Count 3.35 10^6/ul (4.0-5.4); Red Cell Distribution Width 16 % (10.5-15); White Blood Count 19.8 10^3/ul (3.5-10.8)
[2016-09-21 11:42] LABS: BUN/Creatinine Ratio 23.1 (8-20); Calcium 8.3 mg/dL (8.6-10.3); EGFR African American 276.2 (>60); EGFR Non-African American 214.8 (>60); Potassium 3.3 mmol/L (3.5-5.0)
--- NOTE | 2016-09-21 13:54 | PN ---
Subjective Date of Service: 09/21/16 Interval History: Pt was noted to be tachypneic in AM IVF was d/c'd and Lasix 10 mg IV given No change in mental status, still nonverbal and responds to touch. Daughter states that pt is able to talk, but never talks in front of doctors Objective Active Medications: Acetaminophen (Tylenol Supp*) 650 mg UT Q6H PRN PRN Reason: FEVER/PAIN Last Admin: 09/21/16 04:00 Dose: 650 mg Albuterol (Ventolin 2.5 Mg/3 Ml Neb.Edwige*) 2.5 mg INH Q2H PRN PRN Reason: SOB/WHEEZING Collagenase (Santyl 250 Mg/Gm Oint*) 1 applic TOPICAL DAILY [facility] Last Admin: 09/21/16 10:00 Dose: 1 applic Famotidine (Pepcid Susp*) 20 mg PEG TUBE DAILY [facility] Last Admin: 09/21/16 09:59 Dose: 20 mg Heparin Sodium (Porcine) (Heparin Vial(*)) 5,000 units SUBCUT Q8HR [facility] Last Admin: 09/21/16 13:36 Dose: 5,000 units Cefepime HCl 2 gm/ Sodium (Chloride) 50 mls @ 100 mls/hr IVPB Q12H [facility] Last Admin: 09/21/16 09:51 Dose: 100 mls/hr Metronidazole/Sodium Chloride (Flagyl 500 Mg Ivpb*) 500 mg in 100 mls @ 100 mls /hr IVPB Q8H [facility] Last Admin: 09/21/16 13:35 Dose: 100 mls/hr Lidocaine (Topicaine 4% Gel*) 1 applic TOPICAL Q6H PRN PRN Reason: PAIN Last Admin: 09/20/16 16:26 Dose: 1 applic Morphine Sulfate (Morphine Inj (Syringe)*) 1 mg IV Q4H PRN PRN Reason: PAIN - MILD Last Admin: 09/21/16 09:50 Dose: 1 mg Ondansetron HCl (Zofran Inj*) 4 mg IV Q6H PRN PRN Reason: NAUSEA Potassium Chloride (Klor-Con Liquid*) 40 meq FEED TUBE ONCE ONE Stop: 09/21/16 15:01 Tramadol HCl (Ultram*) 25 mg FEED TUBE Q6H PRN PRN Reason: PAIN Zinc Sulfate (Zinc-220 Cap*) 220 mg PO DAILY [facility] Vital Signs 09/20/16 09/20/16 09/20/16 15:13 16:07 16:25 Temperature 99.5 F Pulse Rate 85 86 Respiratory 24 20 18 Rate Blood Pressure 117/61 (mmHg) O2 Sat by Pulse 97 98 Oximetry 09/20/16 09/20/16 09/20/16 17:25 19:54 20:00 Temperature 98.7 F Pulse Rate Respiratory 16 24 Rate Blood Pressure (mmHg) O2 Sat by Pulse Oximetry 09/20/16 09/20/16 09/20/16 20:34 23:21 23:35 Temperature 100.8 F Pulse Rate 91 80 Respiratory 28 16 Rate Blood Pressure 121/65 183/93 138/60 (mmHg) O2 Sat by Pulse 98 98 Oximetry 09/21/16 09/21/16 09/21/16 03:21 03:44 07:27 Temperature 100.6 F 99.8 F Pulse Rate 80 94 Respiratory 17 36 Rate Blood Pressure 118/62 (mmHg) O2 Sat by Pulse 98 98 Oximetry 09/21/16 09/21/16 09/21/16 07:45 08:00 09:03 Temperature Pulse Rate 80 Respiratory 44 20 Rate Blood Pressure 126/58 (mmHg) O2 Sat by Pulse 97 Oximetry 09/21/16 09/21/16 09:50 10:50 Temperature Pulse Rate Respiratory 34 32 Rate Blood Pressure (mmHg) O2 Sat by Pulse Oximetry Oxygen Devices in Use Now: None Appearance: 76 yo M in nAd, appears to be asleep, nonverbal, moves when touched Eyes: No Scleral Icterus, PERRLA Ears/Nose/Mouth/Throat: NL Teeth, Lips, Gums, Mucous Membranes Moist Neck: NL Appearance and Movements; NL JVP, Trachea Midline Respiratory: Symmetrical Chest Expansion and Respiratory Effort, - - crackles at b/l bases Cardiovascular: NL Sounds; No Murmurs; No JVD, RRR Abdominal: NL Sounds; No Tenderness; No Distention Lymphatic: No Cervical Adenopathy Extremities: No Edema, No Clubbing, Cyanosis Skin: No Nodules or Sclerosis, - - sacral decub at 8 cm in diam 4 cm in depth- deep to the sacral bone. Neurological: - - generalized weakness, no focal deficit, nonverbal Result Diagrams: 09/21/16 11:16 09/21/16 11:16 Additional Lab and Data: Lab Results 09/19/16 09/19/16 09/19/16 Range/Units 20:30 20:30 20:30 INR (Anticoag Therapy) 1.17 H (0.89-1.11) APTT 35.6 (26.0-36.3) seconds Sodium 137 (133-145) mmol/L Potassium 3.8 (3.5-5.0) mmol/L Chloride 101 (101-111) mmol/L Carbon Dioxide 29 (22-32) mmol/L Anion Gap 7 (2-11) mmol/L BUN 14 (6-24) mg/dL Creatinine 0.50 L (0.67-1.17) mg/dL Est GFR ( Amer) 207.4 (>60) Est GFR (Non-Af Amer) 161.2 (>60) BUN/Creatinine Ratio 28.0 H (8-20) Glucose 101 H (70-100) mg/dL Lactic Acid 1.4 (0.5-2.0) mmol/L Calcium 8.9 (8.6-10.3) mg/dL Total Bilirubin 0.50 (0.2-1.0) mg/dL AST 20 (13-39) U/L ALT 17 (7-52) U/L Alkaline Phosphatase 98 (34-104) U/L Troponin I 0.03 (<0.04) ng/mL Total Protein 7.0 (6.4-8.9) g/dL Albumin 2.8 L (3.2-5.2) g/dL Globulin 4.2 H (2-4) g/dL Albumin/Globulin Ratio 0.7 L (1-3) Microbiology and Other Data: Microbiology 09/20/16 02:34 Skin and Soft Tissue MRSA/MSSA (PCR - Final Buttock Mrsa Negative S.aureus Negative Gram Stain - Final Assess/Plan/Problems-Billing Assessment: 76 year old gentleman with progressive supranuclear palsy, s/p PEG placement at [facility] within the past month, now with infected sacral decubitus. - Patient Problems (1) Progressive supranuclear palsy Comment: prognosis is grave and deteriorating. Daughter is aware about pt's prognosis, although still gets upset when informed that pt will in the next few months. Daughter agreed to palliative care consult. Palliative care consult placed (2) Sacral decubitus ulcer, stage IV Comment: s/p debridement on 09/19/16 at wound care center. The ulcer is deep to the bone and with presumed osteomyelitis. Cont Cefepime and Flagyl appreciate Dr. Moura' involvement. wound care dressing recommendations ordered. started on PO zinc Today still in low grade fevers. CXR shows possible RLL infiltrate. no clinical evidence of pneumonia. Leukocytosis still continues. May need ID consult (3) DVT prophylaxis Comment: heparin sc (4) DNI (do not intubate) Status and Disposition: inpatient
[2016-09-21] MEDS ORDERED: Potassium Chloride LIQUID* 20 MEQ PACKET FEED TUBE ONE (15:00)
[2016-09-21] MEDS: Zinc Sulfate CAP* 220 MG PO SCH (15:10)
[2016-09-22] MEDS: metroNIDAZOLE IV 500 MG/100ML* 500 MG/100 ML BAG IVPB SCH ×3 (04:59→20:47)
[2016-09-22] MEDS: Heparin VIAL(*) 5000 UNITS/ML VIAL (FIVE THOUSAND) SUBCUT SCH ×3 (05:48→22:14)
[2016-09-22 06:21] LABS: Hematocrit 27 % (42-52); Hemoglobin 8.4 g/dl (14.0-18.0); Mean Corpuscular HGB Conc 32 g/dl (31-36); Mean Corpuscular Hemoglobin 26 pg (27-31); Mean Corpuscular Volume 83 fL (80-94); Mean Platelet Volume 7 um3 (7.4-10.4); Red Blood Count 3.21 10^6/ul (4.0-5.4); Red Cell Distribution Width 16 % (10.5-15); White Blood Count 16.3 10^3/ul (3.5-10.8)
[2016-09-22 06:50] LABS: Albumin 2.4 g/dL (3.2-5.2); Calcium 8.3 mg/dL (8.6-10.3); EGFR African American 260.7 (>60); EGFR Non-African American 202.7 (>60); Globulin 3.6 g/dL (2-4); Potassium 3.8 mmol/L (3.5-5.0); Total Bilirubin 0.3 mg/dL (0.2-1.0)
[2016-09-22] MEDS: Famotidine SUSP* 40 MG/5 ML ORAL.SUSP PEG TUBE SCH (07:54)
[2016-09-22] MEDS: Collagenase 250 MG/GM OINT* 30 GM TOPICAL SCH (07:54)
[2016-09-22] MEDS: Zinc Sulfate CAP* 220 MG PO SCH (07:54)
[2016-09-22] MEDS: Cefepime(*) 2 GM in NS 0.9% 50 ML* 50 ML IVPB SCH ×2 (09:53→22:15)
[2016-09-22] MEDS: Morphine INJ* 2 MG/ML 1 ML SYRINGE IV PRN ×2 (09:57→21:06)
--- NOTE | 2016-09-22 12:54 | PN ---
Subjective Date of Service: 09/22/16 Interval History: No family was present during today's evaluation. Mentation unchanged, nonverbal, not able to follow commands, responds to repositioning an touch. Objective Active Medications: Acetaminophen (Tylenol Supp*) 650 mg MT Q6H PRN PRN Reason: FEVER/PAIN Last Admin: 09/21/16 22:03 Dose: 650 mg Albuterol (Ventolin 2.5 Mg/3 Ml Neb.Edwige*) 2.5 mg INH Q2H PRN PRN Reason: SOB/WHEEZING Collagenase (Santyl 250 Mg/Gm Oint*) 1 applic TOPICAL DAILY [facility] Last Admin: 09/22/16 07:54 Dose: 1 applic Famotidine (Pepcid Susp*) 20 mg PEG TUBE DAILY [facility] Last Admin: 09/22/16 07:54 Dose: 20 mg Heparin Sodium (Porcine) (Heparin Vial(*)) 5,000 units SUBCUT Q8HR [facility] Last Admin: 09/22/16 05:48 Dose: 5,000 units Cefepime HCl 2 gm/ Sodium (Chloride) 50 mls @ 100 mls/hr IVPB Q12H [facility] Last Admin: 09/22/16 09:53 Dose: 100 mls/hr Metronidazole/Sodium Chloride (Flagyl 500 Mg Ivpb*) 500 mg in 100 mls @ 100 mls /hr IVPB Q8H [facility] Last Admin: 09/22/16 04:59 Dose: 100 mls/hr Lidocaine (Topicaine 4% Gel*) 1 applic TOPICAL Q6H PRN PRN Reason: PAIN Last Admin: 09/20/16 16:26 Dose: 1 applic Morphine Sulfate (Morphine Inj (Syringe)*) 1 mg IV Q4H PRN PRN Reason: PAIN - MILD Last Admin: 09/22/16 09:57 Dose: 1 mg Ondansetron HCl (Zofran Inj*) 4 mg IV Q6H PRN PRN Reason: NAUSEA Tramadol HCl (Ultram*) 25 mg FEED TUBE Q6H PRN PRN Reason: PAIN Zinc Sulfate (Zinc-220 Cap*) 220 mg PO DAILY [facility] Last Admin: 09/22/16 07:54 Dose: 220 mg Vital Signs 09/21/16 09/21/16 09/21/16 15:01 16:01 16:32 Temperature 99.8 F Pulse Rate 77 Respiratory 30 26 26 Rate Blood Pressure (mmHg) O2 Sat by Pulse 98 Oximetry 09/21/16 09/21/16 09/21/16 16:42 21:41 22:06 Temperature 101.7 F Pulse Rate Respiratory 24 Rate Blood Pressure 124/72 (mmHg) O2 Sat by Pulse Oximetry 09/21/16 09/21/16 09/21/16 22:41 23:31 23:56 Temperature 98.6 F Pulse Rate 90 Respiratory 24 17 20 Rate Blood Pressure 131/93 (mmHg) O2 Sat by Pulse 96 Oximetry 09/22/16 09/22/16 09/22/16 07:24 08:00 09:57 Temperature 98.0 F Pulse Rate 72 Respiratory 20 20 16 Rate Blood Pressure 119/65 (mmHg) O2 Sat by Pulse 99 Oximetry 09/22/16 11:30 Temperature Pulse Rate 83 Respiratory 20 Rate Blood Pressure 120/63 (mmHg) O2 Sat by Pulse 98 Oximetry Oxygen Devices in Use Now: None Appearance: 76 yo M in NAD, nonverbal,not following commands Eyes: No Scleral Icterus, PERRLA Ears/Nose/Mouth/Throat: NL Teeth, Lips, Gums, Mucous Membranes Moist Neck: NL Appearance and Movements; NL JVP, Trachea Midline Respiratory: Symmetrical Chest Expansion and Respiratory Effort, Clear to Auscultation Cardiovascular: NL Sounds; No Murmurs; No JVD, RRR Abdominal: NL Sounds; No Tenderness; No Distention, - - PEG in place Lymphatic: No Cervical Adenopathy Extremities: No Edema, No Clubbing, Cyanosis Skin: - - sacral decubitus-today- unstageable-bottom covered with slough, at least stage 3, diameter of 6 cm-less that at admission. Left hip -small 2 cm decub stage 2. Result Diagrams: 09/22/16 05:58 09/22/16 05:58 Additional Lab and Data: Lab Results 09/19/16 09/19/16 09/19/16 Range/Units 20:30 20:30 20:30 INR (Anticoag Therapy) 1.17 H (0.89-1.11) APTT 35.6 (26.0-36.3) seconds Sodium 137 (133-145) mmol/L Potassium 3.8 (3.5-5.0) mmol/L Chloride 101 (101-111) mmol/L Carbon Dioxide 29 (22-32) mmol/L Anion Gap 7 (2-11) mmol/L BUN 14 (6-24) mg/dL Creatinine 0.50 L (0.67-1.17) mg/dL Est GFR ( Amer) 207.4 (>60) Est GFR (Non-Af Amer) 161.2 (>60) BUN/Creatinine Ratio 28.0 H (8-20) Glucose 101 H (70-100) mg/dL Lactic Acid 1.4 (0.5-2.0) mmol/L Calcium 8.9 (8.6-10.3) mg/dL Total Bilirubin 0.50 (0.2-1.0) mg/dL AST 20 (13-39) U/L ALT 17 (7-52) U/L Alkaline Phosphatase 98 (34-104) U/L Troponin I 0.03 (<0.04) ng/mL Total Protein 7.0 (6.4-8.9) g/dL Albumin 2.8 L (3.2-5.2) g/dL Globulin 4.2 H (2-4) g/dL Albumin/Globulin Ratio 0.7 L (1-3) Microbiology and Other Data: Microbiology 09/20/16 02:34 Skin and Soft Tissue MRSA/MSSA (PCR - Final Buttock Mrsa Negative S.aureus Negative Gram Stain - Final Assess/Plan/Problems-Billing Assessment: 76 year old gentleman with progressive supranuclear palsy, s/p PEG placement at [facility] within the past month, now with infected sacral decubitus. - Patient Problems (1) Progressive supranuclear palsy Comment: prognosis is grave and deteriorating. Daughter is aware about pt's prognosis, although still gets upset when informed that pt will in the next few months. Palliative care consult today. (2) Sacral decubitus ulcer, stage IV Comment: s/p debridement on 09/19/16 at wound care center. The ulcer is deep to the bone and with presumed osteomyelitis. Cont Cefepime and Flagyl, but pt still febrile despite tx. Will ask ID to see pt in consult appreciate Dr. Moura' involvement. wound care dressing recommendations ordered. started on PO zinc (3) DVT prophylaxis Comment: heparin sc (4) DNI (do not intubate) (5) Malnutrition Comment: prealbumin 7 Severe , chronic. Appreciate nutrition consult, although daughter doesn't agree with most of the reommendations (she requested feeding to be decreased to Q3H, not Q2 as recommended, also she did not agree to water flushes at 60 ml, the requested them to be 30 mf each). cont feeding as allowed by pt's HCP Status and Disposition: inpatient
--- NOTE | 2016-09-22 14:20 | CONS ---
CONSULTATION REPORT: DATE OF CONSULT: 09/22/16 REQUESTING PHYSICIAN: Dr. Whittington. CONSULTING SERVICE: Infectious Disease. REASON FOR CONSULT: Sacral wound infection. IMPRESSION: 1. Large sacral decubitus ulcer present on admission, complicated by wound infection and osteomyelitis, acute. A culture from the wound was taken. The Gram stain showed 4+ neutrophils, 3+ gram-positive bacilli, 3+ gram-negative bacilli, 1+ gram-positive cocci. These are negative for Staphylococcus aureus, but cultures pending. His white blood cell count is improving and the amount of drainage and erythema by report is improving on this current antibiotic combination. 2. Progressive supranuclear palsy with severe debility and contractures. He is essentially immobile. 3. Hypoalbuminemia. 4. Aspiration pneumonia and PEG. RECOMMENDATIONS: 1. Agree with cefepime, decreased to 1 g every 12 hours given his size and continue Flagyl 500 mg, also change to every 12 hours. We will plan on a few days of IV antibiotics and then ideally finish his therapy for osteomyelitis with oral antibiotics in addition to the wound care that he has been getting. I do not recommend further imaging because he is already being treated as osteomyelitis. HISTORY OF PRESENT ILLNESS: This is a 76-year-old man admitted after he was found to have a leukocytosis and worsening of the wound, complicated by infection, came to the hospital on the from the wound clinic. White count 19,000. He was started on vancomycin, cefepime, Flagyl. After the wound culture was taken, the vancomycin was stopped. White count is down to 16,000 today. He cannot provide any history given his baseline mental status, which is obtained instead from discussion with Dr. Whittington, review of the medical records , and discussion with the patient's son-in-law. He was seen by surgical service here. He has had blood cultures which are negative. He had a urine culture, which has grown Pseudomonas, 50,000 to 75,000 colonies. PAST MEDICAL HISTORY: 1. Progressive supranuclear palsy. 2. Status post PEG tube placement. 3. Hypertension. 4. Hyperlipidemia. ALLERGIES: No known drug allergies. MEDICATIONS: 1. Tylenol. 2. Albuterol. 3. Collagenase topical. 4. Famotidine via the PEG. 5. Heparin subcutaneous injection. 6. Cefepime 2 g IV every 12 hours. 7. Flagyl 500 mg IV every 8 hours. 8. Zofran. 9. Potassium. 10. Zinc. FAMILY HISTORY: No recurrent infections. SOCIAL HISTORY: He has been living in his home, has home health aides. No travel. No sick contacts. REVIEW OF SYSTEMS: Unobtainable given his mental status. PHYSICAL EXAM: Vital Signs: Temperature is 37, heart rate 70, respiratory rate 20, blood pressure is 119/65, O2 sat 99% on room air. General: He is awake, does not regard or answer questions. Neurologic: He has upper and lower extremity contractures bilaterally. HEENT: There is no conjunctival hemorrhage. Oropharynx without lesions. Heart: Regular rate and rhythm without murmurs, rubs or gallops. Lungs: Clear to auscultation bilaterally. Abdomen: Soft, nontender, nondistended. There is a PEG tube without erythema or drainage. Skin: There is no rash or splinter hemorrhages. Musculoskeletal : There does not appear to be spine tenderness to palpation. There is a large deep decubitus ulcer with surrounding mild erythema and scant serous drainage. There is no foul odor. DIAGNOSTIC STUDIES/LAB DATA: White blood cell count is 16, hemoglobin 8, platelets 395, creatinine is 0.4. Please see impressions and recommendations as outlined above, which I have discussed with Dr. Whittington. Thanks for asking me to see Mr. Chappell in consultation. [id number]/[facility] #: [id number] MTDD
[2016-09-22] MEDS ORDERED: Docusate CAP* 100 MG PRN (15:21)
[2016-09-22] MEDS: traMADol TAB* 50 MG FEED TUBE PRN ×2 (15:29→23:06)
[2016-09-22] MEDS: Senna TAB G TUBE PRN (20:48)
--- NOTE | 2016-09-22 21:46 | CONS ---
PALLIATIVE CARE CONSULTATION: DATE OF CONSULTATION: 09/22/16 PRIMARY CARE PHYSICIAN: Jarvis Reid MD. REQUESTING PHYSICIAN FOR CONSULTATION: Sharri Whittington MD. HOSPITAL COURSE: This is a 76-year-old male with a past medical history of progressive supranuclear palsy with parkinsonism, recurrent aspiration pneumonia who presented to the emergency room on the from wound after noted to have a high white count. The patient's daughter, Lydia, is the healthcare proxy and who speaks on his behalf, states her concern for his prolonged and recurrent hospitalizations. He was hospitalized on the first here to the ICU with respiratory distress secondary to aspiration pneumonitis. He had a prolonged hospital course here and on the he was transferred to [facility]. At [facility] they did put a PEG tube in. She states he was then sent home too early to a group home facility and returned 2 days later with maybe a wound infection or aspiration. She states it is not entirely clear. He has since been home for the past 3 weeks, getting 24-hour care at the house with caregivers and VNS services and PT. I asked what the goals were with the daughter and she states that she wants him to get stronger and to get better and she would like him to go to [facility] to get a second opinion with their neurologist, as they are experts in this condition and that she feels that he is still declined because of his hospitalizations. She states that he is verbal and he is able to talk with them, but normally has not been communicative with healthcare professionals around. He was taking some food by mouth at home, small amounts of honey thickened liquids. Speech therapy today evaluated the patient and stated that he is not safe to take anything by mouth. The daughter does state that she wants him to be comfortable and she wants him to get better and she wants to keep him home. She does not like to keep coming back and forth to the hospital. I discussed with his diagnosis of progressive supranuclear palsy, that he is end stage, that he is eligible for hospice because of his high risk of aspiration and in neurologic decline. The daughter is interested in hospice services as she feels that this will help him keep him at home and that maybe his longevity will increase with comfort as well. We discussed revoking hospice if she wants to pursue a second opinion or pursue more rehabilitative goals. We also discussed advanced care planning and she states when she was at [facility], if he was a DNR they would not take him to the ICU and treat him. I emphasize that our goal is not to treat if they are do not resuscitate. I discussed that I did not think that he would survive CPR and when she commented that she would only want it done lightly, I stated that he definitely would not survive if the CPR was only done lightly to avoid rib fractures. The concern being is that he has stage 4 pressure ulcers and Infectious Disease was consulted and cultures are pending, but there is concern for prolonged IV antibiotic use which I feel that the family will advocate for unfortunately. I am not sure the benefit of improving quality and comfort with IV antibiotics and that possibly speaking with Infectious Disease this weekend, pursue oral antibiotics once the cultures are back, to improve wound healing and to allow him to be at home with hospice. Per ID, the few days of antibiotics and then transition to oral antibiotics would be ideal. The patient is unable to report any review of systems, although he is able to squeeze his hands saying that he is in pain. He is otherwise nonverbal. His daughter, Lydia, and her are at the bedside. PAST MEDICAL HISTORY: 1. 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 2. Recurrent aspiration pneumonia status post PEG tube. 3. Hypertension. 4. Poor wound healing, chronic pressure ulcers. 5. Recurrent hospitalizations for recurrent aspiration pneumonia and wound infections. INPATIENT MEDICATIONS: 1. Tylenol 650 mg every 6 hours as needed. 2. Albuterol 2.5 every 2 hours. 3. Collagenase, apply topically daily. 4. Famotidine 20 PEG daily. 5. Heparin subcu t.i.d. 6. Lidocaine topical q.6 hours as needed. 7. Cefepime 2 g q.12 hours. 8. Morphine 1 mg every 4 hours as needed. 9. Zofran 4 mg q.6 hours as needed. 10. Potassium chloride 40 mEq once. 11. Zinc sulfate 220 capsules p.o. daily. 12. Metronidazole 500 mg q.8 hours. 13. Tramadol q.6 hours as needed for pain. ALLERGIES: No known drug allergies. FAMILY HISTORY: Reviewed and noncontributory. SOCIAL HISTORY: As mentioned, the patient lives at him with his daughter and with 24-hour care including VNS and PT. No history of alcohol, tobacco , or illicit drug use. His healthcare proxy is his daughter, Lydia. His code status is CPR and DNI. REVIEW OF SYSTEMS: Unable to obtain as the patient is nonverbal, although he does squeeze my hands stating that he is pain. PHYSICAL EXAMINATION: Vitals: Temp 98, pulse rate 83, respiratory rate 20, oxygen saturation 98% on room air. Blood pressure 120/63. GENERAL: A frail elderly male in no acute distress. HEENT: Neck supple. No lymphadenopathy. Pupils are pinpoint , sluggish, anicteric. Head: Normocephalic. Oropharynx, mucous membranes are dry. Cardiac: Regular rate and rhythm. No murmurs, rubs , or gallops. Respiratory: Diminished breath sounds. No wheezing, rhonchi or rales. The patient with coarse upper airway breath sounds. Abdomen: Soft, nontender, and nondistended. Extremities: No clubbing, cyanosis,or edema with healed bruits and chronic ulcers not visualized at this time. Neurologic: The patient with contracted upper extremities. No spontaneous movement of his lower extremities. He was able to do 1/5 handgrip and nonverbal and unable to follow any other commands other than handgrip. LABORATORY DATA: White count 16.3, hemoglobin 8.4, hematocrit 27, platelets 395. Sodium 136, potassium 3.8, chloride 106, bicarb 22, BUN 9, creatinine 0.4, albumin 2.4, prealbumin is 7. Blood cultures are no growth from the 29th. ASSESSMENT: This is a 76-year-old male with the past medical history of progressive supranuclear palsy presenting with stage 4 pressure ulcer and presumed osteomyelitis. Palliative care was asked to consult for goals of care and patient with a prolonged hospitalization last time with high risk of recurrent aspiration. The daughter agrees that she does not want him to be intubated. The concern for CPR is that he is a do not resuscitate, that he would not get cared for in the ICU and other noninvasive measures would be taken. I explained to her that this would not be the case since we would do what we could up until resuscitation. She is going to think about it and reevaluate the MOLST form at some point. I did speak with her that he is eligible for hospice due to the terminal diagnosis of degenerative progressive supranuclear palsy. He is also with a secondary diagnosis of severe protein calorie malnutrition and stage 4 pressure ulcer with presumed osteomyelitis. The patient's daughter is interested in hospice services for the additional resources to help care for him at home and keeping him at home and to avoid recurrent admissions. I discussed the MOLST form checklist of putting a check box of keeping him at home and not further hospitalization which she will again revisit. I also will be going to have Dori, pediatric social worker come in and speak with her again about disposition planning. The idea seems to be that once the wound cultures return that he can then transition to oral antibiotics and then go home with hospice. I discussed that she can decide if she wants a second opinion at [facility] or changing his mindset of rehabilitation that she could always revoke hospice at a later time. The patient's daughter is interested in hospice and would like to continue him on tramadol for pain control at this time. She is concerned he has not had a bowel movement recently, so I am going to start him on a bowel regimen as well. Thank you for this consultation, I will follow along with you. TIME SPENT: Greater than 90 minutes was spent during this consultation, more than half the time was spent in direct patient contact. CC: Jarvis Reid MD* [id number]/[facility] #: [id number] LINDA
[2016-09-22] MEDS: Lidocaine 4% GEL* 10 GM TUBE TOPICAL PRN (22:56)
[2016-09-23] MEDS: Morphine INJ* 2 MG/ML 1 ML SYRINGE IV PRN ×3 (05:22→23:49)
[2016-09-23] MEDS: Heparin VIAL(*) 5000 UNITS/ML VIAL (FIVE THOUSAND) SUBCUT SCH ×3 (05:22→21:36)
[2016-09-23] MEDS: metroNIDAZOLE IV 500 MG/100ML* 500 MG/100 ML BAG IVPB SCH ×3 (05:27→21:37)
[2016-09-23 05:40] LABS: Hematocrit 24 % (42-52); Hemoglobin 7.9 g/dl (14.0-18.0); Mean Corpuscular HGB Conc 32 g/dl (31-36); Mean Corpuscular Hemoglobin 27 pg (27-31); Mean Corpuscular Volume 82 fL (80-94); Mean Platelet Volume 7 um3 (7.4-10.4); Red Blood Count 2.97 10^6/ul (4.0-5.4); Red Cell Distribution Width 16 % (10.5-15); White Blood Count 14.3 10^3/ul (3.5-10.8)
[2016-09-23 05:51] LABS: BUN/Creatinine Ratio 24.3 (8-20); Calcium 8.1 mg/dL (8.6-10.3); EGFR African American 293.5 (>60); EGFR Non-African American 228.2 (>60); Potassium 3.5 mmol/L (3.5-5.0)
[2016-09-23] MEDS: Zinc Sulfate CAP* 220 MG PO SCH (08:02)
[2016-09-23] MEDS: Famotidine SUSP* 40 MG/5 ML ORAL.SUSP PEG TUBE SCH (08:03)
[2016-09-23] MEDS: Collagenase 250 MG/GM OINT* 30 GM TOPICAL SCH (09:24)
[2016-09-23] MEDS: Cefepime(*) 1 GM in NS 0.9% 50 ML* 50 ML IVPB SCH ×2 (10:10→22:57)
--- NOTE | 2016-09-23 12:38 | PN ---
Subjective Date of Service: 09/23/16 Interval History: Pt's mental status is unchanged, nonverbal, awake. Objective Active Medications: Acetaminophen (Tylenol Supp*) 650 mg CO Q6H PRN PRN Reason: FEVER/PAIN Last Admin: 09/21/16 22:03 Dose: 650 mg Albuterol (Ventolin 2.5 Mg/3 Ml Neb.Edwige*) 2.5 mg INH Q2H PRN PRN Reason: SOB/WHEEZING Last Admin: 09/23/16 01:59 Dose: 2.5 mg Collagenase (Santyl 250 Mg/Gm Oint*) 1 applic TOPICAL DAILY [facility] Last Admin: 09/23/16 09:24 Dose: 1 applic Docusate Sodium (Colace Cap*) 100 mg .SEE ORDER BID PRN PRN Reason: CONSTIPATION Famotidine (Pepcid Susp*) 20 mg PEG TUBE DAILY [facility] Last Admin: 09/23/16 08:03 Dose: 20 mg Heparin Sodium (Porcine) (Heparin Vial(*)) 5,000 units SUBCUT Q8HR [facility] Last Admin: 09/23/16 05:22 Dose: 5,000 units Cefepime HCl 1 gm/ Sodium (Chloride) 50 mls @ 100 mls/hr IVPB Q12H [facility] Last Admin: 09/23/16 10:10 Dose: 100 mls/hr Metronidazole/Sodium Chloride (Flagyl 500 Mg Ivpb*) 500 mg in 100 mls @ 100 mls /hr IVPB Q12H [facility] Last Admin: 09/23/16 08:50 Dose: 100 mls/hr Lidocaine (Topicaine 4% Gel*) 1 applic TOPICAL Q6H PRN PRN Reason: PAIN Last Admin: 09/22/16 22:56 Dose: 1 applic Morphine Sulfate (Morphine Inj (Syringe)*) 1 mg IV Q4H PRN PRN Reason: PAIN - MILD Last Admin: 09/23/16 05:22 Dose: 1 mg Ondansetron HCl (Zofran Inj*) 4 mg IV Q6H PRN PRN Reason: NAUSEA Senna (Senokot Tab*) 1 tab G TUBE BEDTIME PRN PRN Reason: CONSTIPATION Last Admin: 09/22/16 20:48 Dose: 1 tab Tramadol HCl (Ultram*) 25 mg FEED TUBE Q6H PRN PRN Reason: PAIN Last Admin: 09/22/16 23:06 Dose: 25 mg Zinc Sulfate (Zinc-220 Cap*) 220 mg PO DAILY [facility] Last Admin: 09/23/16 08:02 Dose: 220 mg Vital Signs 09/22/16 09/22/16 09/22/16 15:29 16:33 17:29 Temperature 98.9 F Pulse Rate 75 Respiratory 16 18 Rate Blood Pressure 109/53 (mmHg) O2 Sat by Pulse 98 Oximetry 09/22/16 09/22/16 09/22/16 19:42 21:06 22:06 Temperature Pulse Rate Respiratory 18 20 20 Rate Blood Pressure (mmHg) O2 Sat by Pulse Oximetry 09/22/16 09/22/16 09/23/16 23:06 23:37 00:11 Temperature 98.9 F Pulse Rate 80 Respiratory 20 18 Rate Blood Pressure 116/60 (mmHg) O2 Sat by Pulse 98 Oximetry 09/23/16 09/23/16 09/23/16 01:06 01:59 05:22 Temperature Pulse Rate 75 Respiratory 20 20 Rate Blood Pressure (mmHg) O2 Sat by Pulse 97 Oximetry 09/23/16 09/23/16 07:40 08:00 Temperature 98.3 F Pulse Rate 77 Respiratory 16 18 Rate Blood Pressure 121/60 (mmHg) O2 Sat by Pulse 99 Oximetry Oxygen Devices in Use Now: None Appearance: 76 yo M in NAd, nonverbal, responds to stymuli, eyes opened, unable to folow commands Eyes: No Scleral Icterus, PERRLA Ears/Nose/Mouth/Throat: NL Teeth, Lips, Gums, Mucous Membranes Moist Neck: NL Appearance and Movements; NL JVP, Trachea Midline Respiratory: Symmetrical Chest Expansion and Respiratory Effort, Clear to Auscultation Cardiovascular: NL Sounds; No Murmurs; No JVD, RRR Abdominal: - - PEG in place Lymphatic: No Cervical Adenopathy Extremities: No Edema, No Clubbing, Cyanosis Skin: - - decubitus ulcer redressed early in aM, not uncovered Neurological: - - generalized weakness, no focal deficit Result Diagrams: 09/23/16 05:26 09/23/16 05:26 Additional Lab and Data: Lab Results 09/19/16 09/19/16 09/19/16 Range/Units 20:30 20:30 20:30 INR (Anticoag Therapy) 1.17 H (0.89-1.11) APTT 35.6 (26.0-36.3) seconds Sodium 137 (133-145) mmol/L Potassium 3.8 (3.5-5.0) mmol/L Chloride 101 (101-111) mmol/L Carbon Dioxide 29 (22-32) mmol/L Anion Gap 7 (2-11) mmol/L BUN 14 (6-24) mg/dL Creatinine 0.50 L (0.67-1.17) mg/dL Est GFR ( Amer) 207.4 (>60) Est GFR (Non-Af Amer) 161.2 (>60) BUN/Creatinine Ratio 28.0 H (8-20) Glucose 101 H (70-100) mg/dL Lactic Acid 1.4 (0.5-2.0) mmol/L Calcium 8.9 (8.6-10.3) mg/dL Total Bilirubin 0.50 (0.2-1.0) mg/dL AST 20 (13-39) U/L ALT 17 (7-52) U/L Alkaline Phosphatase 98 (34-104) U/L Troponin I 0.03 (<0.04) ng/mL Total Protein 7.0 (6.4-8.9) g/dL Albumin 2.8 L (3.2-5.2) g/dL Globulin 4.2 H (2-4) g/dL Albumin/Globulin Ratio 0.7 L (1-3) Microbiology and Other Data: Microbiology 09/20/16 02:34 Skin and Soft Tissue MRSA/MSSA (PCR - Final Buttock Mrsa Negative S.aureus Negative Gram Stain - Final Assess/Plan/Problems-Billing Assessment: 76 year old gentleman with progressive supranuclear palsy, s/p PEG placement at [facility] within the past month, now with infected sacral decubitus. - Patient Problems (1) Progressive supranuclear palsy Comment: prognosis is grave and deteriorating. Daughter is aware about pt's prognosis, although still gets upset when informed that pt will in the next few months. Palliative care consult appreciated. Pt may be able to go to hospice residence. (2) Sacral decubitus ulcer, stage IV Comment: s/p debridement on 09/19/16 at [facility]. The ulcer is deep to the bone and with presumed osteomyelitis. Cont Cefepime and Flagyl ID consult appreciated. Leukocytosis resolving appreciate Dr. Moura' involvement. wound care dressing recommendations noted, but daughter doesn't agree with Anastacio tx. Spoke with wound care today and will prescribe medi honey daily as family wishes. started on PO zinc (3) DVT prophylaxis Comment: heparin sc (4) DNI (do not intubate) (5) Malnutrition Comment: prealbumin 7 Severe , chronic. Appreciate nutrition consult, although daughter doesn't agree with most of the reommendations (she requested feeding to be decreased to Q3H, not Q2 as recommended, also she did not agree to water flushes at 60 ml, the requested them to be 30 mf each). cont feeding as allowed by pt's HCP Status and Disposition: inpatient
[2016-09-23] MEDS: Senna TAB G TUBE PRN (21:32)
[2016-09-23] MEDS: Acetaminophen SUPP* 650 MG SUPP PR PRN (22:00)
[2016-09-24] MEDS: Heparin VIAL(*) 5000 UNITS/ML VIAL (FIVE THOUSAND) SUBCUT SCH ×3 (06:33→22:36)
[2016-09-24] MEDS: metroNIDAZOLE IV 500 MG/100ML* 500 MG/100 ML BAG IVPB SCH ×2 (08:54→21:08)
[2016-09-24] MEDS: Famotidine SUSP* 40 MG/5 ML ORAL.SUSP PEG TUBE SCH (10:22)
[2016-09-24] MEDS: Cefepime(*) 1 GM in NS 0.9% 50 ML* 50 ML IVPB SCH ×2 (10:22→22:36)
[2016-09-24] MEDS: Zinc Sulfate CAP* 220 MG PO SCH (10:23)
--- NOTE | 2016-09-24 11:49 | PN ---
Subjective Date of Service: 09/24/16 Interval History: Pt's seen in aM, family not in the room, appears at baseline, nonverbal Objective Active Medications: Acetaminophen (Tylenol Supp*) [address] Q6H PRN PRN Reason: FEVER/PAIN Last Admin: 09/23/16 22:00 Dose: 650 mg Albuterol (Ventolin 2.5 Mg/3 Ml Neb.Edwige*) 2.5 mg INH Q2H PRN PRN Reason: SOB/WHEEZING Last Admin: 09/23/16 01:59 Dose: 2.5 mg Collagenase (Santyl 250 Mg/Gm Oint*) 1 applic TOPICAL DAILY [facility] Last Admin: 09/23/16 09:24 Dose: 1 applic Docusate Sodium (Colace Cap*) 100 mg .SEE ORDER BID PRN PRN Reason: CONSTIPATION Last Admin: 09/23/16 21:32 Dose: 100 mg Famotidine (Pepcid Susp*) 20 mg PEG TUBE DAILY [facility] Last Admin: 09/24/16 10:22 Dose: 20 mg Heparin Sodium (Porcine) (Heparin Vial(*)) 5,000 units SUBCUT Q8HR [facility] Last Admin: 09/24/16 06:33 Dose: 5,000 units Cefepime HCl 1 gm/ Sodium (Chloride) 50 mls @ 100 mls/hr IVPB Q12H [facility] Last Admin: 09/24/16 10:22 Dose: 100 mls/hr Metronidazole/Sodium Chloride (Flagyl 500 Mg Ivpb*) 500 mg in 100 mls @ 100 mls /hr IVPB Q12H [facility] Last Admin: 09/24/16 08:54 Dose: 100 mls/hr Lidocaine (Topicaine 4% Gel*) 1 applic TOPICAL Q6H PRN PRN Reason: PAIN Last Admin: 09/22/16 22:56 Dose: 1 applic Morphine Sulfate (Morphine Inj (Syringe)*) 1 mg IV Q4H PRN PRN Reason: PAIN - MILD Last Admin: 09/23/16 23:49 Dose: 1 mg Ondansetron HCl (Zofran Inj*) 4 mg IV Q6H PRN PRN Reason: NAUSEA Senna (Senokot Tab*) 1 tab G TUBE BEDTIME PRN PRN Reason: CONSTIPATION Last Admin: 09/23/16 21:32 Dose: 1 tab Tramadol HCl (Ultram*) 25 mg FEED TUBE Q6H PRN PRN Reason: PAIN Last Admin: 09/22/16 23:06 Dose: 25 mg Zinc Sulfate (Zinc-220 Cap*) 220 mg PO DAILY [facility] Last Admin: 09/24/16 10:23 Dose: 220 mg Vital Signs 09/23/16 09/23/16 09/23/16 16:05 17:47 18:47 Temperature 98.8 F Pulse Rate 79 Respiratory 28 20 16 Rate Blood Pressure 143/67 (mmHg) O2 Sat by Pulse 99 Oximetry 09/23/16 09/23/16 09/23/16 21:40 23:00 23:49 Temperature 100.5 F Pulse Rate 85 Respiratory 16 16 16 Rate Blood Pressure 119/67 (mmHg) O2 Sat by Pulse 97 Oximetry 09/24/16 09/24/16 09/24/16 00:49 07:26 07:41 Temperature 98.6 F Pulse Rate 73 74 Respiratory 16 16 14 Rate Blood Pressure 117/62 (mmHg) O2 Sat by Pulse 94 98 Oximetry Oxygen Devices in Use Now: None Appearance: 76 yo M in NAd, nonverbal, alert, unable to follow commands Eyes: No Scleral Icterus, PERRLA Ears/Nose/Mouth/Throat: NL Teeth, Lips, Gums, - - dry mucosa Neck: NL Appearance and Movements; NL JVP, Trachea Midline Respiratory: Symmetrical Chest Expansion and Respiratory Effort, Clear to Auscultation Cardiovascular: NL Sounds; No Murmurs; No JVD, RRR Abdominal: NL Sounds; No Tenderness; No Distention, No Hepatosplenomegaly, - - PEG in place Extremities: No Edema, No Clubbing, Cyanosis Skin: - - sacral decub at 8x4 cm, 3 cm deep, bottom covered with slough. left hip decub-stage 1-2 at 3 cm in diam Neurological: - - generalized weakness, contracted UE's, mild contraction in LE' s, nonverbal Result Diagrams: 09/23/16 05:26 09/23/16 05:26 Additional Lab and Data: Lab Results 09/19/16 09/19/16 09/19/16 Range/Units 20:30 20:30 20:30 INR (Anticoag Therapy) 1.17 H (0.89-1.11) APTT 35.6 (26.0-36.3) seconds Sodium 137 (133-145) mmol/L Potassium 3.8 (3.5-5.0) mmol/L Chloride 101 (101-111) mmol/L Carbon Dioxide 29 (22-32) mmol/L Anion Gap 7 (2-11) mmol/L BUN 14 (6-24) mg/dL Creatinine 0.50 L (0.67-1.17) mg/dL Est GFR ( Amer) 207.4 (>60) Est GFR (Non-Af Amer) 161.2 (>60) BUN/Creatinine Ratio 28.0 H (8-20) Glucose 101 H (70-100) mg/dL Lactic Acid 1.4 (0.5-2.0) mmol/L Calcium 8.9 (8.6-10.3) mg/dL Total Bilirubin 0.50 (0.2-1.0) mg/dL AST 20 (13-39) U/L ALT 17 (7-52) U/L Alkaline Phosphatase 98 (34-104) U/L Troponin I 0.03 (<0.04) ng/mL Total Protein 7.0 (6.4-8.9) g/dL Albumin 2.8 L (3.2-5.2) g/dL Globulin 4.2 H (2-4) g/dL Albumin/Globulin Ratio 0.7 L (1-3) Microbiology and Other Data: Microbiology 09/20/16 02:34 Skin and Soft Tissue MRSA/MSSA (PCR - Final Buttock Mrsa Negative S.aureus Negative Gram Stain - Final Assess/Plan/Problems-Billing Assessment: 76 year old gentleman with progressive supranuclear palsy, s/p PEG placement at [facility] within the past month, now with infected sacral decubitus. - Patient Problems (1) Progressive supranuclear palsy Comment: prognosis is grave and deteriorating. Daughter is aware about pt's prognosis, although still gets upset when informed that pt will in the next few months. Palliative care consult appreciated. Pt was offered a bed in hospice residence, daughter is going to decide in the next 24H. (2) Sacral decubitus ulcer, stage IV Comment: s/p debridement on 09/19/16 at [facility]. The ulcer is deep to the bone and with presumed osteomyelitis. Cont Cefepime and Flagyl, one discharged planned Levaquin daily and flagyl BID x 2 weeks total. ID consult appreciated. Leukocytosis resolving appreciate Dr. Moura' involvement. wound care dressing recommendations noted, but daughter doesn't agree with Santyl tx. cont medi honey daily as family wishes. started on PO zinc (3) DVT prophylaxis Comment: heparin sc (4) DNI (do not intubate) (5) Malnutrition Comment: prealbumin 7 Severe , chronic. Appreciate nutrition consult, although daughter doesn't agree with most of the recmmendations (she requested feeding to be decreased to Q3H, not Q2 as recommended, also she did not agree to water flushes at 60 ml, the requested them to be 30 mf each). cont feeding as allowed by pt's HCP Status and Disposition: inpatient, if daughter does not agree to d/c pt to hospice residence pt should be able to be discharged home tomorrow under the care of family.
[2016-09-24] MEDS: Morphine INJ* 2 MG/ML 1 ML SYRINGE IV PRN ×2 (12:26→19:32)
[2016-09-24] MEDS: Collagenase 250 MG/GM OINT* 30 GM TOPICAL SCH (13:18)
[2016-09-24] MEDS: Acetaminophen SUPP* 650 MG SUPP PR PRN (23:24)
[2016-09-25] MEDS: Morphine INJ* 2 MG/ML 1 ML SYRINGE IV PRN ×3 (03:28→18:09)
[2016-09-25] MEDS: Heparin VIAL(*) 5000 UNITS/ML VIAL (FIVE THOUSAND) SUBCUT SCH ×3 (06:18→22:44)
[2016-09-25 08:05] VITALS: BP 126/78
[2016-09-25] MEDS: Collagenase 250 MG/GM OINT* 30 GM TOPICAL SCH (08:06)
--- NOTE | 2016-09-25 09:00 | PN ---
Subjective Date of Service: 09/25/16 Interval History: Patient not able to make his needs known. Objective Active Medications: Acetaminophen (Tylenol Supp*) 650 mg MS Q6H PRN PRN Reason: FEVER/PAIN Last Admin: 09/24/16 23:24 Dose: 650 mg Albuterol (Ventolin 2.5 Mg/3 Ml Neb.Edwige*) 2.5 mg INH Q2H PRN PRN Reason: SOB/WHEEZING Last Admin: 09/23/16 01:59 Dose: 2.5 mg Collagenase (Santyl 250 Mg/Gm Oint*) 1 applic TOPICAL DAILY [facility] Last Admin: 09/25/16 08:06 Dose: Not Given Docusate Sodium (Colace Cap*) 100 mg .SEE ORDER BID PRN PRN Reason: CONSTIPATION Last Admin: 09/23/16 21:32 Dose: 100 mg Famotidine (Pepcid Susp*) 20 mg PEG TUBE DAILY [facility] Last Admin: 09/24/16 10:22 Dose: 20 mg Heparin Sodium (Porcine) (Heparin Vial(*)) 5,000 units SUBCUT Q8HR [facility] Last Admin: 09/25/16 06:18 Dose: 5,000 units Cefepime HCl 1 gm/ Sodium (Chloride) 50 mls @ 100 mls/hr IVPB Q12H [facility] Last Admin: 09/24/16 22:36 Dose: 100 mls/hr Metronidazole/Sodium Chloride (Flagyl 500 Mg Ivpb*) 500 mg in 100 mls @ 100 mls /hr IVPB Q12H [facility] Last Admin: 09/24/16 21:08 Dose: 100 mls/hr Lidocaine (Topicaine 4% Gel*) 1 applic TOPICAL Q6H PRN PRN Reason: PAIN Last Admin: 09/22/16 22:56 Dose: 1 applic Morphine Sulfate (Morphine Inj (Syringe)*) 1 mg IV Q4H PRN PRN Reason: PAIN - MILD Last Admin: 09/25/16 08:42 Dose: 1 mg Ondansetron HCl (Zofran Inj*) 4 mg IV Q6H PRN PRN Reason: NAUSEA Senna (Senokot Tab*) 1 tab G TUBE BEDTIME PRN PRN Reason: CONSTIPATION Last Admin: 09/23/16 21:32 Dose: 1 tab Tramadol HCl (Ultram*) 25 mg FEED TUBE Q6H PRN PRN Reason: PAIN Last Admin: 09/22/16 23:06 Dose: 25 mg Zinc Sulfate (Zinc-220 Cap*) 220 mg PO DAILY [facility] Last Admin: 09/24/16 10:23 Dose: 220 mg Vital Signs 09/24/16 09/24/16 09/24/16 11:39 12:26 13:26 Temperature 98.4 F Pulse Rate 71 Respiratory 16 32 20 Rate Blood Pressure 128/58 (mmHg) O2 Sat by Pulse 98 Oximetry 09/24/16 09/24/16 09/24/16 15:32 19:32 20:00 Temperature Pulse Rate 81 Respiratory 30 32 28 Rate Blood Pressure 130/70 (mmHg) O2 Sat by Pulse 98 Oximetry 09/24/16 09/24/16 09/25/16 20:32 23:20 02:19 Temperature 99.2 F Pulse Rate 95 84 Respiratory 26 16 Rate Blood Pressure (mmHg) O2 Sat by Pulse 98 Oximetry 09/25/16 09/25/16 09/25/16 03:28 04:28 06:29 Temperature 97.4 F Pulse Rate 88 Respiratory 32 30 30 Rate Blood Pressure (mmHg) O2 Sat by Pulse 98 Oximetry 09/25/16 09/25/16 09/25/16 06:30 08:05 08:42 Temperature Pulse Rate 85 Respiratory 30 32 Rate Blood Pressure 120/75 126/78 (mmHg) O2 Sat by Pulse 98 Oximetry Oxygen Devices in Use Now: None Appearance: Eyes close, head partly up, on his left side in semifetal position. Unresponsive to voice or light touch. Looks comfortable. Neck: NL Appearance and Movements; NL JVP, No Thyroid Enlargement, Masses Respiratory: Symmetrical Chest Expansion and Respiratory Effort, Clear to Auscultation, Clear to Percussion Cardiovascular: NL Sounds; No Murmurs; No JVD, RRR, No Edema, - Extremities: No Edema, No Clubbing, Cyanosis, - Skin: No Rash or Ulcers, No Nodules or Sclerosis, - Neurological: - - Unresponsive to voice or light touch. No tremor. Result Diagrams: 09/23/16 05:26 09/23/16 05:26 Additional Lab and Data: Lab Results 09/19/16 09/19/16 09/19/16 Range/Units 20:30 20:30 20:30 INR (Anticoag Therapy) 1.17 H (0.89-1.11) APTT 35.6 (26.0-36.3) seconds Sodium 137 (133-145) mmol/L Potassium 3.8 (3.5-5.0) mmol/L Chloride 101 (101-111) mmol/L Carbon Dioxide 29 (22-32) mmol/L Anion Gap 7 (2-11) mmol/L BUN 14 (6-24) mg/dL Creatinine 0.50 L (0.67-1.17) mg/dL Est GFR ( Amer) 207.4 (>60) Est GFR (Non-Af Amer) 161.2 (>60) BUN/Creatinine Ratio 28.0 H (8-20) Glucose 101 H (70-100) mg/dL Lactic Acid 1.4 (0.5-2.0) mmol/L Calcium 8.9 (8.6-10.3) mg/dL Total Bilirubin 0.50 (0.2-1.0) mg/dL AST 20 (13-39) U/L ALT 17 (7-52) U/L Alkaline Phosphatase 98 (34-104) U/L Troponin I 0.03 (<0.04) ng/mL Total Protein 7.0 (6.4-8.9) g/dL Albumin 2.8 L (3.2-5.2) g/dL Globulin 4.2 H (2-4) g/dL Albumin/Globulin Ratio 0.7 L (1-3) Microbiology and Other Data: Microbiology 09/20/16 02:34 Skin and Soft Tissue MRSA/MSSA (PCR - Final Buttock Mrsa Negative S.aureus Negative Gram Stain - Final Assess/Plan/Problems-Billing Assessment: 76 year old gentleman with progressive supranuclear palsy, s/p PEG placement at [facility] within the past month, now with infected sacral decubitus. - Patient Problems (1) Progressive supranuclear palsy Current Visit: No Status: Acute Code(s): G23.1 - PROGRESSIVE SUPRANUCLEAR OPHTHALMOPLEGIA SNOMED Code(s): 87784301 Comment: End-stage, irreversible. Daughter is aware about pt's prognosis, although still gets upset when informed that pt will in the next few months. Palliative care consult appreciated. Pt was offered a bed in hospice residence, daughter is going to decide in the next 24H. (2) Sacral decubitus ulcer, stage IV Current Visit: Yes Status: Acute Code(s): L89.154 - PRESSURE ULCER OF SACRAL REGION, STAGE 4 SNOMED Code(s): 661635573 Comment: s/p debridement on 09/19/16 at wound care center. The ulcer is deep to the bone and with presumed osteomyelitis. Cont Cefepime and Flagyl, one discharged planned Levaquin daily and flagyl BID x 2 weeks total. ID consult appreciated. Leukocytosis resolving appreciate Dr. Moura' involvement. wound care dressing recommendations noted, but daughter doesn't agree with Santyl tx. cont medi honey daily as family wishes. started on PO zinc (3) Malnutrition Current Visit: Yes Status: Acute Code(s): E46 - UNSPECIFIED PROTEIN-CALORIE MALNUTRITION SNOMED Code(s): 3250624 Comment: prealbumin 7 Severe , chronic. Appreciate nutrition consult, although daughter doesn't agree with most of the recmmendations (she requested feeding to be decreased to Q3H, not Q2 as recommended, also she did not agree to water flushes at 60 ml, the requested them to be 30 mf each). cont feeding as allowed by pt's HCP (4) DVT prophylaxis Current Visit: No Status: Acute Code(s): IDF7895 - SNOMED Code(s): 087380097 Comment: heparin sc (5) Full code status Current Visit: No Status: Acute Code(s): Z78.9 - OTHER SPECIFIED HEALTH STATUS SNOMED Code(s): 215075913 Comment: Daughter requests no intubation, but not willing to sign any documentation. Palliative care consult appreciated. (6) Dementia Current Visit: No Status: Chronic Code(s): F03.90 - UNSPECIFIED DEMENTIA WITHOUT BEHAVIORAL DISTURBANCE SNOMED Code(s): 41371591 Comment: As of 08/06/16, in a vegatative state. 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 (7) HTN (hypertension) Current Visit: No Status: Chronic Code(s): I10 - ESSENTIAL (PRIMARY) HYPERTENSION SNOMED Code(s): 88514966 Comment: Off BP meds. (8) DVT (deep venous thrombosis) Current Visit: No Status: Acute Code(s): I82.409 - ACUTE EMBOLISM AND THOMBOS UNSP DEEP VN UNSP LOWER EXTREMITY SNOMED Code(s): 790534811 Comment: I will clarify family's wishes regarding rx. If they accept hospice care, the question would then be moot. Status and Disposition: inpatient, if daughter does not agree to d/c pt to hospice residence pt should be able to be discharged home tomorrow under the care of family.
[2016-09-25] MEDS: metroNIDAZOLE IV 500 MG/100ML* 500 MG/100 ML BAG IVPB SCH ×2 (11:01→20:41)
[2016-09-25] MEDS: Zinc Sulfate CAP* 220 MG PO SCH (11:03)
[2016-09-25] MEDS: Acetaminophen SUPP* 650 MG SUPP PR PRN (11:05)
--- NOTE | 2016-09-25 11:24 | PN ---
Progress Note - Progress Note Note: Time spent on discharge 50 minutes.
[2016-09-25] MEDS: Famotidine SUSP* 40 MG/5 ML ORAL.SUSP PEG TUBE SCH (11:52)
[2016-09-25] MEDS: Cefepime(*) 1 GM in NS 0.9% 50 ML* 50 ML IVPB SCH ×2 (13:07→22:02)
[2016-09-25] MEDS: traMADol TAB* 50 MG FEED TUBE PRN (14:14)
--- NOTE | 2016-09-25 16:43 | DS ---
DISCHARGE SUMMARY: DATE OF ADMISSION: DATE OF DISCHARGE: 09/25/16 HOSPITAL COURSE: This 76-year-old man presented with a chief complaint of elevated white count and sacral decubitus. He was seen at the wound clinic today where admission blood work showed a white count of 20.1 and he was referred to admission. He was being treated there for his sacral decubitus, which extends to the pelvic bones. The patient was given vancomycin, cefepime and metronidazole. Wound culture grew out strep group B and E. coli, at one site, E. coli and H. parainfluenzae at another site. One set of blood cultures was no growth. Another wound culture grew out methicillin-sensitive Staph aureus and E. coli. The patient seems stable clinically. He was seen by hospice and accepted. The daughter would like him to be on the hospice program on discharge. He will either go to the hospice residence or go home with hospice. FINAL DIAGNOSES: 1. Supranuclear palsy. 2. Sacral decubitus ulcer stage IV. 3. Severe malnutrition. 4. Dementia. 5. History of hypertension. MEDICATIONS ON DISCHARGE: 1. Levofloxacin solution 500 mg daily for 14 days. 2. Levofloxacin 500 mg suspension t.i.d. for 14 days. 3. Morphine oral concentrate 5 mg every 30 minutes p.r.n. 4. Acetaminophen suppository 650 mg every 6 hours p.r.n. 5. Lidocaine 2% jelly apply daily as prescribed. CC: Jarvis Reid MD* [id number]/[facility] #: [id number] MTDD
[2016-09-26] MEDS: Acetaminophen SUPP* 650 MG SUPP PR PRN ×2 (03:50→13:59)
[2016-09-26] MEDS: Heparin VIAL(*) 5000 UNITS/ML VIAL (FIVE THOUSAND) SUBCUT SCH (06:29)
[2016-09-26] MEDS: Collagenase 250 MG/GM OINT* 30 GM TOPICAL SCH (07:40)
[2016-09-26] MEDS: Morphine INJ* 2 MG/ML 1 ML SYRINGE IV PRN (07:43)
[2016-09-26] MEDS: Zinc Sulfate CAP* 220 MG PO SCH (07:44)
[2016-09-26] MEDS: Famotidine SUSP* 40 MG/5 ML ORAL.SUSP PEG TUBE SCH (07:44)
[2016-09-26] MEDS: metroNIDAZOLE IV 500 MG/100ML* 500 MG/100 ML BAG IVPB SCH (08:46)
[2016-09-26] MEDS: Cefepime(*) 1 GM in NS 0.9% 50 ML* 50 ML IVPB SCH (10:07)
--- NOTE | 2016-09-26 15:03 | PN ---
"Progress Note - Progress Note Note: Search Terms: tiera britt, 1940 Search Date: 09/26/2016 03:03:12 PM This report was requested by: Gabriele Castellanos | Reference #: [id number] There are no results for the search terms that you entered."
== END 2016-09-26 14:50 | disposition home or self-care (01) | DRG 592 ==
LOC: ED 18:14 → MED 23:34
PROVIDERS: ADMIT Hospitalist; ATTEND Internal Medicine
DX: L89.154 Pressure ulcer of sacral region, stage 4 (principal); J69.0 Pneumonitis due to inhalation of food and vomit; E43 Unspecified severe protein-calorie malnutrition; G23.1 Progressive supranuclear ophthalmoplegia [Steele-Richardson-Olszewski]; G20 Parkinson's disease; M46.28 Osteomyelitis of vertebra, sacral and sacrococcygeal region; B95.61 Methicillin susceptible Staphylococcus aureus infection as the cause of diseases classified elsewhere; F03.90 Unspecified dementia, unspecified severity, without behavioral disturbance, psychotic disturbance, mood disturbance, and anxiety; E88.09 Other disorders of plasma-protein metabolism, not elsewhere classified; B96.20 Unspecified Escherichia coli [E. coli] as the cause of diseases classified elsewhere; B95.1 Streptococcus, group B, as the cause of diseases classified elsewhere; B96.3 Hemophilus influenzae [H. influenzae] as the cause of diseases classified elsewhere; I10 Essential (primary) hypertension; E78.5 Hyperlipidemia, unspecified; Z66 Do not resuscitate; Z68.23 Body mass index [BMI] 23.0-23.9, adult; Z79.1 Long term (current) use of non-steroidal anti-inflammatories (NSAID); Z93.1 Gastrostomy status; Z79.899 Other long term (current) drug therapy; Z82.49 Family history of ischemic heart disease and other diseases of the circulatory system
CPT/HCPCS: 11042; 11045; 36415; 71010; 72220; 80048; 80053; 80202; 81003; 81015; 82040; 83036; 83540; 83605; 84134; 84484; 85025; 85610; 85730; 87040; 87070; 87077; 87086; 87186; 87205; 87640; 87641; 93005; 94640; 96374; 96375; 99285; A9270-GY; J0692; J1644; J1885; J1940; J2270; J2405; J3370

== ENCOUNTER 2017-09-19 18:04 | Emergency (ER) | payer MEDICARE, OTHER ==
[2017-09-19] MEDS ORDERED: NS 0.9% 1000 ML* 1,000 ML IV ONE (18:24)
[2017-09-19 18:57] LABS: ABS Basophils 0 10^3/ul (0-0.2); ABS Eosinophils 0.1 10^3/ul (0-0.6); ABS Lymphocytes 1.4 10^3/ul (1.0-4.8); ABS Monocytes 0.5 10^3/ul (0-0.8); ABS Neutrophils 4.6 10^3/ul (1.5-7.7); ABS Nucleated RBC 0 10^3/ul; Eosinophil % 0.8 % (0-6); Hematocrit 34 % (42-52); Hemoglobin 11.6 g/dl (14.0-18.0); Lymphocyte % 20.9 % (25-47); Mean Corpuscular HGB Conc 35 g/dl (31-36); Mean Corpuscular Hemoglobin 30 pg (27-31); Mean Corpuscular Volume 88 fL (80-94); Mean Platelet Volume 8.3 um3 (7.4-10.4); Nucleated Red Blood Cells % 0; Platelet Count 201 10^3/ul (150-450); Red Blood Count 3.83 10^6/ul (4.0-5.4); Red Cell Distribution Width 16 % (10.5-15); White Blood Count 6.5 10^3/ul (3.5-10.8)
[2017-09-19 19:06] LABS: INR 1.02 (0.77-1.02)
[2017-09-19 19:12] LABS: EGFR Non-African American 168.6 (>60)
--- NOTE | 2017-09-19 20:08 | RAD ---
Indication: Abdominal pain, constipation. Comparison: December 21, 2015 CT. Technique: Supine view of the abdomen. REPORT AND IMPRESSION: Moderately large volume of formed stool present throughout the colon with severe rectal distention with stool. No colonic volvulus or small bowel dilatation to indicate obstruction. Percutaneous gastric feeding tube noted. Negative for suspicious calcifications or mass effect.
--- NOTE | 2017-09-19 20:11 | RAD ---
Indication: RIGHT shoulder pain and swelling. Comparison: December 21, 2015 Technique: Internal and external rotation AP and scapular Y views RIGHT shoulder Report: Normal acromioclavicular joint alignment. Moderately severe AC joint osteophytosis and subchondral cystic change. Superior subluxation of the humeral head relative to the glenoid favoring rotator cuff pathology. Increased dystrophic calcification at the level of the infraspinatus tendon compared with the 2016 exam. Bone density appears decreased throughout. No definitive fracture evident. IMPRESSION: Advanced arthropathy of the acromioclavicular and glenohumeral joints with stigmata of chronic rotator cuff pathology.
--- NOTE | 2017-09-19 20:14 | RAD ---
Indication: Abdominal pain and edema. Comparison: September 21, 2016 Technique: Semierect portable AP chest 1926 hours Report: Mild prominence and patchy rarefaction of interstitial markings. Normal variant accessory azygos fissure at the medial RIGHT upper lung zone. Mild LEFT basilar airspace consolidation which may represent atelectasis or pneumonia. Mild cardiomegaly. Unremarkable central pulmonary vasculature. Mildly tortuous thoracic aorta. IMPRESSION: 1. Stigmata of chronic obstructive pulmonary disease. 2. Mild LEFT basilar airspace consolidation which may represent atelectasis or pneumonia.
--- NOTE | 2017-09-19 21:12 | ED ---
Cornelius Scherer Elizabeth, scribed for Andres Alonzo on 09/19/17 at 2056 . Abdominal Pain/Male - HPI Summary HPI Summary: This patient is a 77 year old M presenting to [facility] with a chief complaint of constipation and a broken G-tube. Due to dementia patient is unable to provide a history. Patients daughter denies the patient has experienced any vomiting. The patient had a G-tube put in a year ago. The patients daughter also reports that the patient has a wound on his left hip. - History of Current Complaint Stated Complaint: ABD PAIN Time Seen by Provider: 09/19/17 18:13 Hx Obtained From: Family/Equity Director - Patient's daughter Hx From Patient Unobtainable Due To: Dementia Onset/Duration: Lasting Hours Timing: Constant Pain Intensity: 0 Aggravating Factor(s): Nothing Alleviating Factor(s): Nothing Associated Signs And Symptoms: Positive: Constipation - Allergies/Home Medications Allergies/Adverse Reactions: Allergies Allergy/AdvReac Type Severity Reaction Status Date / Time No Known Allergies Allergy Verified 09/20/16 00:54 PMH/Surg Hx/FS Hx/Imm Hx Endocrine/Hematology History: Denies: Hx Diabetes, Hx Systemic Lupus Erythematosus Cardiovascular History: Reports: Hx Hypertension Denies: Hx Congestive Heart Failure, Hx Pacemaker/ICD GI History: Comment Only: Other GI Disorders - PARKINSONS DISEASE History: Denies: Hx Dialysis, Hx Renal Disease Musculoskeletal History: Reports: Hx Back Problems - prior LB surgery, left him with L foot drop, Other Musculoskeletal History - parkinsons Denies: Hx Rheumatoid Arthritis Sensory History: Denies: Hx Contacts or Glasses, Hx Hearing Aid Opthamlomology History: Denies: Hx Contacts or Glasses Neurological History: Reports: Other Neuro Impairments/Disorders - parkinsons Psychiatric History: Reports: Hx Depression Denies: Hx Panic Disorder - Cancer History Hx Chemotherapy: No - Surgical History Surgery Procedure, Year, and Place: RIGHT ROTATOR CUFF SURGERY, back surgery in distant past Hx Anesthesia Reactions: No - Immunization History Date of Tetanus Vaccine: unk Date of Influenza Vaccine: unk Infectious Disease History: No Infectious Disease History: Denies: Hx Clostridium Difficile, Hx Hepatitis, Hx Human Immunodeficiency Virus (HIV), Hx of Known/Suspected MRSA, Hx Shingles, Hx Tuberculosis, Hx Known/ Suspected VRE, Hx Known/Suspected VRSA, History Other Infectious Disease, Traveled Outside the in Last 30 Days - Family History Known Family History: Positive: Unknown, Diabetes - per EMR, brother with positive hx of DM, Other - Per EMR, brother with positive hx of pancreatic CA Family History: LEVEL 5 CAVEAT secondary to AMS. - Social History Alcohol Use: None Hx Substance Use: No Substance Use Type: Reports: None Hx Tobacco Use: No Smoking Status (MU): Never Smoked Tobacco Review of Systems Negative: Epistaxis Positive: Abdominal Pain, Other - Constipation Skin: Other - wound on left hip Positive: Weakness All Other Systems Reviewed And Are Negative: Yes Physical Exam - Summary Physical Exam Summary: Appearance: Well appearing, no pain distress Skin: warm, dry, reflects adequate perfusion Head/face: normal Eyes: EOMI, ANCELMO ENT: normal Neck: supple, non-tender Respiratory: CTA, breath sounds present Cardiovascular: RRR, pulses symmetrical Abdomen: non-tender, soft, G-tube present Bowel: present Musculoskeletal: extremities all contracted Neuro: normal, sensory motor intact, confused, lethargic Triage Information Reviewed: Yes Vital Signs On Initial Exam: Initial Vitals Temp Pulse Resp BP Pulse Ox 98.3 F 96 20 172/115 96 09/19/17 18:11 09/19/17 18:11 09/19/17 18:11 09/19/17 18:11 09/19/17 18:11 Vital Signs Reviewed: Yes Diagnostics - Vital Signs Vital Signs Temp Pulse Resp BP Pulse Ox 09/19/17 18:14 59 22 172/115 96 09/19/17 18:13 60 27 96 09/19/17 18:11 98.3 F 96 20 172/115 96 - Laboratory Lab Results: Lab Results 09/19/17 09/19/17 09/19/17 Range/Units 18:39 18:39 18:39 WBC 6.5 (3.5-10.8) 10^3/ul RBC 3.83 L (4.0-5.4) 10^6/ul Hgb 11.6 L (14.0-18.0) g/dl Hct 34 L (42-52) % MCV 88 (80-94) fL MCH 30 (27-31) pg MCHC 35 (31-36) g/dl RDW 16 H (10.5-15) % Plt Count 201 (150-450) 10^3/ul MPV 8.3 (7.4-10.4) um3 Neut % (Auto) 70.3 (38-83) % Lymph % (Auto) 20.9 L (25-47) % [place] % (Auto) 7.7 H (0-7) % Eos % (Auto) 0.8 (0-6) % Baso % (Auto) 0.3 (0-2) % Absolute Neuts (auto) 4.6 (1.5-7.7) 10^3/ul Absolute Lymphs (auto) 1.4 (1.0-4.8) 10^3/ul Absolute Monos (auto) 0.5 (0-0.8) 10^3/ul Absolute Eos (auto) 0.1 (0-0.6) 10^3/ul Absolute Basos (auto) 0 (0-0.2) 10^3/ul Absolute Nucleated RBC 0 10^3/ul Nucleated RBC % 0 INR (Anticoag Therapy) 1.02 (0.77-1.02) APTT 34.9 (26.0-36.3) seconds Sodium 134 L (139-145) mmol/L Potassium 3.6 (3.5-5.0) mmol/L Chloride 98 L (101-111) mmol/L Carbon Dioxide 32 (22-32) mmol/L Anion Gap 4 (2-11) mmol/L BUN 15 (6-24) mg/dL Creatinine 0.48 L (0.67-1.17) mg/dL Est GFR ( Amer) 216.8 (>60) Est GFR (Non-Af Amer) 168.6 (>60) BUN/Creatinine Ratio 31.3 H (8-20) Glucose 95 (70-100) mg/dL Lactic Acid (0.5-2.0) mmol/L Calcium 8.7 (8.6-10.3) mg/dL Total Bilirubin 0.30 (0.2-1.0) mg/dL AST 53 H (13-39) U/L ALT 62 H (7-52) U/L Alkaline Phosphatase 56 (34-104) U/L Troponin I 0.02 (<0.04) ng/mL Total Protein 6.5 (6.4-8.9) g/dL Albumin 3.3 (3.2-5.2) g/dL Globulin 3.2 (2-4) g/dL Albumin/Globulin Ratio 1.0 (1-3) Lipase 24 (11.0-82.0) U/L 09/19/17 Range/Units 18:39 WBC (3.5-10.8) 10^3/ul RBC (4.0-5.4) 10^6/ul Hgb (14.0-18.0) g/dl Hct (42-52) % MCV (80-94) fL MCH (27-31) pg MCHC (31-36) g/dl RDW (10.5-15) % Plt Count (150-450) 10^3/ul MPV (7.4-10.4) um3 Neut % (Auto) (38-83) % Lymph % (Auto) (25-47) % [place] % (Auto) (0-7) % Eos % (Auto) (0-6) % Baso % (Auto) (0-2) % Absolute Neuts (auto) (1.5-7.7) 10^3/ul Absolute Lymphs (auto) (1.0-4.8) 10^3/ul Absolute Monos (auto) (0-0.8) 10^3/ul Absolute Eos (auto) (0-0.6) 10^3/ul Absolute Basos (auto) (0-0.2) 10^3/ul Absolute Nucleated RBC 10^3/ul Nucleated RBC % INR (Anticoag Therapy) (0.77-1.02) APTT (26.0-36.3) seconds Sodium (139-145) mmol/L Potassium (3.5-5.0) mmol/L Chloride (101-111) mmol/L Carbon Dioxide (22-32) mmol/L Anion Gap (2-11) mmol/L BUN (6-24) mg/dL Creatinine (0.67-1.17) mg/dL Est GFR ( Amer) (>60) Est GFR (Non-Af Amer) (>60) BUN/Creatinine Ratio (8-20) Glucose (70-100) mg/dL Lactic Acid 0.6 (0.5-2.0) mmol/L Calcium (8.6-10.3) mg/dL Total Bilirubin (0.2-1.0) mg/dL AST (13-39) U/L ALT (7-52) U/L Alkaline Phosphatase (34-104) U/L Troponin I (<0.04) ng/mL Total Protein (6.4-8.9) g/dL Albumin (3.2-5.2) g/dL Globulin (2-4) g/dL Albumin/Globulin Ratio (1-3) Lipase (11.0-82.0) U/L Result Diagrams: 09/19/17 18:39 09/19/17 18:39 Lab Statement: Any lab studies that have been ordered have been reviewed, and results considered in the medical decision making process. - Radiology CXR Xray Interpretation: Positive (See Comments) - IMPRESSION: 1. Stigmata of chronic obstructive pulmonary disease. 2. Mild LEFT basilar airspace consolidation which may represent atelectasis or pneumonia. Dr. Alonzo has reviewed this report. Radiology Interpretation Completed By: Radiologist Abdominal X-Ray Xray Interpretation: Positive (See Comments) - REPORT AND IMPRESSION: Moderately large volume of formed stool present throughout the colon with severe rectal distention with stool. No colonic volvulus or small bowel dilatation to indicate obstruction. Percutaneous gastric feeding tube noted. Negative for suspicious calcifications or mass effect. Dr. Alonzo has reviewed this report. Radiology Interpretation Completed By: Radiologist Shoulder X-Ray Xray Interpretation: Positive (See Comments) - IMPRESSION: Advanced arthropathy of the acromioclavicular and glenohumeral joints with stigmata of chronic rotator cuff pathology. Dr. Alonzo has reviewed this report. Radiology Interpretation Completed By: Radiologist - EKG 19:10 Cardiac Rate: NL - at 55 BPM EKG Rhythm: Sinus Rhythm EKG Interpretation: RBBB, NSR Abdominal Pain Fem Course/Dx - Course Course Of Treatment: This patient is a 77 year old M presenting to [facility] with a chief complaint of constipation and a broken GT tube. In the ED course the patient was given IV fluids. We discussed patient care with Dr. Kiran Montana and they recommended admitting the patient. Patient will be admitted to [facility] with diagnosis of abdominal pain, dementia, constipation, and G- Tube dysfunction. The patients family is agreeable with this plan. - Diagnoses Differential Diagnosis/HQI/PQRI: Other - pneumonia/sbo/constipation Provider Diagnoses: Gastrostomy tube dysfunction, Constipation, Abdominal pain, Dementia - Provider Notifications Discussed Care Of Patient With: Kiran Montana Instructed by Provider To: Admit As Inpatient Discharge - Sign-Out/Discharge Documenting (check all that apply): Discharge/Admit/Transfer - Discharge Plan Condition: Stable Disposition: ADMITTED TO [facility] Referrals: Jarvis Reid MD [Primary Care Provider] - - Billing Disposition and Condition Condition: STABLE Disposition: HOSP-[facility] The documentation as recorded by the Cornelius pepe Elizabeth accurately reflects the service I personally performed and the decisions made by Clinton guevara Emmanuel.
--- NOTE | 2017-09-19 22:47 | CONSULT ---
Consult Consult: PCP: Misty Reid MD Date/Time: 09/19/20172029 Reason for Consult: Consideration for admission HPI: Mr Chappell is a 77YO male HX progressive supranuclear palsy, HTN, HLD, aspiration pneumonia, stg 4 sacral decubitus (resolved), & RLS who presents via his daughter who is his full-time caregiver. She relates increased chronic R shoulder pain with any movement over the past few days, no bowel movement for 2 days, increased oral secretions, & stable L hip decubitus. She states his maximum temperature at home has been 99F. He has a PEG tube in which the external piece has broken leaving just the tube which she has been using to feed him with "pureed" regular food. She states it needs to be changed, but refused to allow the ED physician attempt insisting it must be done by a surgeon according to his GI physician, but denies this has been set up or planned. She was asked repetitively if she had any other concerns at this time and denied any. Labs are reviewed and unremarkable, negative for suggestions of infection or other acute disorder. His CXR is most consistent with mild LLL atelectasis. Abdominal XRY reveals constipation with impaction without obstruction. His daughter refused enema & disimpaction. R shoulder XRY reveals chronic advanced osteoarthritic degeneration and stigmata of rotator cuff pathology. He has a history of failed R rotator cuff repair. His prior sacral decubitus is entirely healed. A small stage 2 pressure ulcer is on the L hip, but without infectious erythema, warmth, flocculence, drainage, induration, or malodor. Given the chronic nature of all her concerns and an entirely negative and adequate ED work up, his daughter was informed that he does not appear to meet inpatient or observation criteria and a retirement admission was offered. She refused consideration for long-term placement despite repetitively expressing concerns that she was having difficulty managing his care at home. She expresses interest in inpatient rehab, but his current functional capacity (he is unable to follow requests, does not speak during his exam or history, etc) is inadequate to qualify. She does not seem willing to accept this, but refuses retirement admission. PMedHx progressive supranuclear palsy HTN HLD HX aspiration pneumonia HX stg 4 sacral decubitus (resolved) RLS Ambulatory Orders Nursing to reconcile. Acetaminophen SUPP* [Tylenol Supp*] 650 mg TX Q6H PRN #0 supp 08/06/16 Ibuprofen ADULT LIQ* [Motrin LIQ ADULT*] 600 mg PO TID PRN #30 udc 09/26/16 Metronidazole Benzoate [First-Metronidazole 100] 500 mg PO TID #210 ml 09/26/16 Allergies No Known Allergies Allergy (Verified 09/20/16 00:54) PSurgHx PEG placement failed R rotator cuff repair L-spine surgery SocHx: no tobacco, alcohol, or recreational drugs; lives with his daughter FamHx: positive for HTN, HLD, CAD ROS: as above, otherwise reviewed and all were negative vitals: Vital Signs Temp 37.0 C 09/19/17 23:36 Pulse 72 09/19/17 23:36 Resp 20 09/19/17 23:36 BP 174/80 09/19/17 23:36 Pulse Ox 99 09/19/17 23:36 Constitutional: NAD, normally developed, cachectic chronically-ill appearing elderly white male HEENM: atraumatic; sclera/conjunctiva: anicteric/clear; hearing: unable to assess; oropharynx: clear, moist Neck: soft tissue: non-tender, no nuchal rigidity; thyroid: normal Pulmonary: difficult to assess 2nd does not breath deep w/ request, diminished but clear to auscultation bilaterally, fair aeration, no accessory muscle use CV: RR/RR, normal S1S2, no carotid bruit, no jugular venous distention, 2+ B DP/ PT, no edema Abdominal: soft, non-distended, non-tender, no rebound/guarding/rigidity, normoactive bowel sounds, no hepatosplenomegaly or masses, no costovertebral angle tenderness Musculoskeletal: general: grossly intact; gait: non-ambulatory Integumental: L lateral hip w/ 1.5cm partial thickness pressure wound without erythema, drainage, warmth, malodor, flocculence, or induration Psychiatric orientation: somnolent, disoriented, does not respond to questions affect: somnolent mood: acquiescent eye contact: absent content: absent responses: withdraws purposefully to noxious stimuli insight: poor Testing: Lab Results 09/19/17 09/19/17 09/19/17 Range/Units 18:39 18:39 18:39 WBC 6.5 (3.5-10.8) 10^3/ul RBC 3.83 L (4.0-5.4) 10^6/ul Hgb 11.6 L (14.0-18.0) g/dl Hct 34 L (42-52) % MCV 88 (80-94) fL MCH 30 (27-31) pg MCHC 35 (31-36) g/dl RDW 16 H (10.5-15) % Plt Count 201 (150-450) 10^3/ul MPV 8.3 (7.4-10.4) um3 Neut % (Auto) 70.3 (38-83) % Lymph % (Auto) 20.9 L (25-47) % [place] % (Auto) 7.7 H (0-7) % Eos % (Auto) 0.8 (0-6) % Baso % (Auto) 0.3 (0-2) % Absolute Neuts (auto) 4.6 (1.5-7.7) 10^3/ul Absolute Lymphs (auto) 1.4 (1.0-4.8) 10^3/ul Absolute Monos (auto) 0.5 (0-0.8) 10^3/ul Absolute Eos (auto) 0.1 (0-0.6) 10^3/ul Absolute Basos (auto) 0 (0-0.2) 10^3/ul Absolute Nucleated RBC 0 10^3/ul Nucleated RBC % 0 INR (Anticoag Therapy) 1.02 (0.77-1.02) APTT 34.9 (26.0-36.3) seconds Sodium 134 L (139-145) mmol/L Potassium 3.6 (3.5-5.0) mmol/L Chloride 98 L (101-111) mmol/L Carbon Dioxide 32 (22-32) mmol/L Anion Gap 4 (2-11) mmol/L BUN 15 (6-24) mg/dL Creatinine 0.48 L (0.67-1.17) mg/dL Est GFR ( Amer) 216.8 (>60) Est GFR (Non-Af Amer) 168.6 (>60) BUN/Creatinine Ratio 31.3 H (8-20) Glucose 95 (70-100) mg/dL Lactic Acid (0.5-2.0) mmol/L Calcium 8.7 (8.6-10.3) mg/dL Total Bilirubin 0.30 (0.2-1.0) mg/dL AST 53 H (13-39) U/L ALT 62 H (7-52) U/L Alkaline Phosphatase 56 (34-104) U/L Troponin I 0.02 (<0.04) ng/mL Total Protein 6.5 (6.4-8.9) g/dL Albumin 3.3 (3.2-5.2) g/dL Globulin 3.2 (2-4) g/dL Albumin/Globulin Ratio 1.0 (1-3) Lipase 24 (11.0-82.0) U/L 09/19/17 Range/Units 18:39 WBC (3.5-10.8) 10^3/ul RBC (4.0-5.4) 10^6/ul Hgb (14.0-18.0) g/dl Hct (42-52) % MCV (80-94) fL MCH (27-31) pg MCHC (31-36) g/dl RDW (10.5-15) % Plt Count (150-450) 10^3/ul MPV (7.4-10.4) um3 Neut % (Auto) (38-83) % Lymph % (Auto) (25-47) % [place] % (Auto) (0-7) % Eos % (Auto) (0-6) % Baso % (Auto) (0-2) % Absolute Neuts (auto) (1.5-7.7) 10^3/ul Absolute Lymphs (auto) (1.0-4.8) 10^3/ul Absolute Monos (auto) (0-0.8) 10^3/ul Absolute Eos (auto) (0-0.6) 10^3/ul Absolute Basos (auto) (0-0.2) 10^3/ul Absolute Nucleated RBC 10^3/ul Nucleated RBC % INR (Anticoag Therapy) (0.77-1.02) APTT (26.0-36.3) seconds Sodium (139-145) mmol/L Potassium (3.5-5.0) mmol/L Chloride (101-111) mmol/L Carbon Dioxide (22-32) mmol/L Anion Gap (2-11) mmol/L BUN (6-24) mg/dL Creatinine (0.67-1.17) mg/dL Est GFR ( Amer) (>60) Est GFR (Non-Af Amer) (>60) BUN/Creatinine Ratio (8-20) Glucose (70-100) mg/dL Lactic Acid 0.6 (0.5-2.0) mmol/L Calcium (8.6-10.3) mg/dL Total Bilirubin (0.2-1.0) mg/dL AST (13-39) U/L ALT (7-52) U/L Alkaline Phosphatase (34-104) U/L Troponin I (<0.04) ng/mL Total Protein (6.4-8.9) g/dL Albumin (3.2-5.2) g/dL Globulin (2-4) g/dL Albumin/Globulin Ratio (1-3) Lipase (11.0-82.0) U/L ECG, personally reviewed: sinus bradycardic RBBB rate 55, T-wave inversions V1-4 , III; similar to comparison 09/19/2016 CXR, personally reviewed: IMPRESSION: 1. Stigmata of chronic obstructive pulmonary disease. 2. Mild LEFT basilar airspace consolidation which may represent atelectasis or pneumonia. (Clinically represents atelectasis, no other supportive indication of infection.) XRY abd, personally reviewed: REPORT AND IMPRESSION: Moderately large volume of formed stool present throughout the colon with severe rectal distention with stool. No colonic volvulus or small bowel dilatation to indicate obstruction. Percutaneous gastric feeding tube noted. Negative for suspicious calcifications or mass effect. XRY R shoulder, personally reviewed: IMPRESSION: Advanced arthropathy of the acromioclavicular and glenohumeral joints with stigmata of chronic rotator cuff pathology. Impression: 77M HX end-stage progressive supranuclear palsy with numerous reasonably stable chronic complaints, family refuses retirement admission, refuses enema w/ disimpaction Discussion: Mr Chappell's daughter is insistent on inpatient hospitalization for his reasonably stable chronic medical conditions and has difficulty grasping that his work up is negative and no inpatient or observation stay is justifiable. She is offered a retirement admission being advised that insurance may or may not cover the stay at their sole discretion. Should she accept retirement stay and his insurance refuse to cover it, she would then be responsible for the bill. She refused retirement admission, refused consideration for long-term placement, does not seem to grasp he is not a functional candidate for inpatient rehab, and refused ED management of both his broken PEG tube and his rectal fecal impaction. As such, she is advised to call his PCP on Thursday for further evaluation and outpatient options. She was not satisfied with this information, but again continued to refuse any reasonable alternative available. DIAGNOSIS & PLAN Primary end-stage progressive supranuclear palsy : palliative/Hospice appropriate : no acute issues constipation : refused enema w/ disimpaction in ED : 30cc MOM per PEG Q4H until BM : abd XRY negative for obstruction R shoulder OA : no acute finding L hip stg 2 decubitus w/o evidence of infection : continue f/u with wound clinic increased oral secretions : likely 2nd to his end-stage progressive supranuclear palsy : no compelling evidence of aspiration pneumonia/pneumonitis at this time broken but functioning PEG tube : advised follow up with their GI physician who can refer them to a surgeon for replacement, if necessary Secondary HTN HLD RLS : continue all previous outpatient medications
[2017-09-19 23:37] VITALS: BP 174/80
== END 2017-09-19 23:36 | disposition short-term general hospital (02) ==
LOC: ED 18:04
DX: K94.23 Gastrostomy malfunction (principal); R10.9 Unspecified abdominal pain; K59.00 Constipation, unspecified; K31.9 Disease of stomach and duodenum, unspecified; F03.90 Unspecified dementia, unspecified severity, without behavioral disturbance, psychotic disturbance, mood disturbance, and anxiety
CPT/HCPCS: 36415; 71045; 74018; 80053; 83605; 83690; 84484; 85025; 85610; 85730; 93005; 99284

== ENCOUNTER 2018-05-01 16:49 | Inpatient (IN) | payer MEDICARE, OTHER ==
--- NOTE | 2018-05-01 17:26 | ED ---
GI/ HPI - HPI Summary HPI Summary: A 78 y/o male brought in by [facility] presents to [facility] with a chief complaint of a leaking G-tube. The patient lives at home with aides. He is poorly responsive and most of the information was obtained from his aides. Per aides, the patient c/o mouth pain, weakness and intermittent fever. His temperature in the ED was 98.2. The aides are also had a rash since 04/28/18 and are worried about possible shingles . The patient reportedly has been crying out in pain. His PCP is worried about possible sepsis. The patient is reportedly always either bedbound or in a wheelchair. - History of Current Complaint Chief Complaint: EDGeneral Stated Complaint: GENERAL ILLNESS Hx Obtained From: Patient, Family/Bottom Worker Hx From Patient Unobtainable Due To: Altered Mental Status Onset/Duration: Started Hours Ago, Still Present Timing: Constant Severity: Moderate Current Severity: Moderate Pain Intensity: 6 - out of 10 Location of Pain: Diffuse Associated Signs and Symptoms: Positive: Fever, Other: - weakness, mouth pain Aggravating Factor(s): Nothing Alleviating Factor(s): Nothing - Additional Pertinent History Primary Care Physician: [id number] - Allergy/Home Medications Allergies/Adverse Reactions: Allergies Allergy/AdvReac Type Severity Reaction Status Date / Time No Known Allergies Allergy Verified 05/01/18 17:04 PMH/Surg Hx/FS Hx/Imm Hx Endocrine/Hematology History: Denies: Hx Diabetes, Hx Systemic Lupus Erythematosus Cardiovascular History: Reports: Hx Hypertension Denies: Hx Congestive Heart Failure, Hx Pacemaker/ICD GI History: Comment Only: Other GI Disorders - PARKINSONS DISEASE History: Denies: Hx Dialysis, Hx Renal Disease Musculoskeletal History: Reports: Hx Back Problems - prior LB surgery, left him with L foot drop, Other Musculoskeletal History - parkinsons Denies: Hx Rheumatoid Arthritis Sensory History: Denies: Hx Contacts or Glasses, Hx Hearing Aid Opthamlomology History: Denies: Hx Contacts or Glasses Neurological History: Reports: Other Neuro Impairments/Disorders - parkinsons Psychiatric History: Reports: Hx Depression Denies: Hx Panic Disorder - Cancer History Hx Chemotherapy: No - Surgical History Surgery Procedure, Year, and Place: RIGHT ROTATOR CUFF SURGERY, back surgery in distant past Hx Anesthesia Reactions: No - Immunization History Date of Tetanus Vaccine: unk Date of Influenza Vaccine: unk Infectious Disease History: No Infectious Disease History: Denies: Hx Clostridium Difficile, Hx Hepatitis, Hx Human Immunodeficiency Virus (HIV), Hx of Known/Suspected MRSA, Hx Shingles, Hx Tuberculosis, Hx Known/ Suspected VRE, Hx Known/Suspected VRSA, History Other Infectious Disease, Traveled Outside the [place] in Last 30 Days - Family History Known Family History: Positive: Diabetes - per EMR, brother with positive hx of DM, Other - Per EMR, brother with positive hx of pancreatic CA Family History: LEVEL 5 CAVEAT secondary to AMS. - Social History Alcohol Use: None Hx Substance Use: No Substance Use Type: Reports: None Hx Tobacco Use: No Smoking Status (MU): Never Smoked Tobacco Review of Systems Positive: Fever - intermittent Positive: Other - Positive: mouth pain Positive: Other - Positive: G-tube leaking Positive: Rash Positive: Weakness All Other Systems Reviewed And Are Negative: Yes Physical Exam - Summary Physical Exam Summary: Appearance: The patient is emaciated and cachectic. Skin: Vesicular rash on right buttock and posterior thigh. HEENT: The head is normocephalic and atraumatic. The pupils are equal and reactive. The conjunctivae are clear and without drainage. Nares are patent and without drainage. Mouth reveals dry mucous membranes and the throat is without erythema and exudate. The external ears are intact. The ear canals are patent and without drainage. The tympanic membranes are intact. Neck: The neck is supple with full range of motion and non-tender. There are no carotid bruits. There is no neck vein distension. Respiratory: Chest is non-tender. Lungs are clear to auscultation and breath sounds are symmetrical and equal. Cardiovascular: Heart is regular rate and rhythm. There is no murmur or rub auscultated. There is no peripheral edema and pulses are symmetrical and equal. Abdomen: G tube in place, wound clean. The abdomen is soft and non-tender. There are normal bowel sounds heard in all four quadrants and there is no organomegaly palpated. Musculoskeletal: There is no back tenderness noted. Extremities are non-tender with full range of motion. There is good capillary refill. There is no peripheral edema or calf tenderness elicited. Neurological: Patient is poorly responsive. Psychiatric: The patient has an appropriate affect and does not exhibit any anxiety or depression. GCS: 8 Triage Information Reviewed: Yes Vital Signs On Initial Exam: Initial Vitals Temp Pulse Resp BP Pulse Ox 98.2 F 57 19 164/109 100 05/01/18 17:00 05/01/18 17:00 05/01/18 17:00 05/01/18 17:00 05/01/18 17:00 Vital Signs Reviewed: Yes Diagnostics - Vital Signs Vital Signs Temp Pulse Resp BP Pulse Ox 05/01/18 17:00 98.2 F 57 19 164/109 100 - Laboratory Result Diagrams: 05/01/18 17:47 05/01/18 19:56 Lab Statement: Any lab studies that have been ordered have been reviewed, and results considered in the medical decision making process. - Radiology CXR Radiology Interpretation Completed By: Radiologist Summary of Radiographic Findings: No radiographic evidence for acute cardiopulmonary abnormality on this. portable chest x-ray. ED physician has reviewed this imaging report. - EKG 17:18 Cardiac Rate: Bradycardia - 57 bpm EKG Rhythm: Sinus Bradycardia Summary of EKG Findings: Sinus bradycardia, LAD GIGU Course/Dx - Course Course Of Treatment: Mr. Chappell was brought in by caregivers stating that he has gotten weaker and less responsive than normal. He has been crying out they believe in pain. He has developed a rash on his right leg. His G-tube has been leaking during feedings. He is bedbound but oftentimes is up in a wheelchair. They state that he is not responsive enough to be put in a wheelchair at this time. He was quite cachectic. He has a rash on his right buttock and posterior thigh which I believe is shingles. He is not responding to my questions but has his eyes open. Labs were obtained and showed a moderately low sodium which is new potassium and urine are still pending. I asked the hospitalist to consult on him. - Diagnoses Provider Diagnoses: Weakness, Parkinson disease, Dementia - Physician Notifications Discussed Care Of Patient With: Tristan Pantoja Time Discussed With Above Provider: 19:40 Instructed by Provider To: Admit As Inpatient Discharge - Sign-Out/Discharge Documenting (check all that apply): Patient Departure - Admit - Discharge Plan Condition: Stable Disposition: ADMITTED TO [facility] Referrals: Jarvis Reid MD [Primary Care Provider] - - Billing Disposition and Condition Condition: STABLE Disposition: Admitted to [facility] - Attestation Statements Document Initiated by Scribe: Yes Documenting Scribe: Renato Ferrell Provider For Whom Scribe is Documenting (Include Credential): Edilberto Alas MD Scribe Attestation: I, Renato Ferrell, scribed for Edilberto Alas MD on 05/01/18 at 2103. Scribe Documentation Reviewed: Yes Provider Attestation: The documentation as recorded by the maricarmene, Renato Ferrell accurately reflects the service I personally performed and the decisions made by me, Edilberto Alas MD Status of Scribe Document: Viewed
[2018-05-01 18:05] LABS: ABS Basophils 0 10^3/ul (0-0.2); ABS Eosinophils 0.1 10^3/ul (0-0.6); ABS Lymphocytes 0.7 10^3/ul (1.0-4.8); ABS Monocytes 0.5 10^3/ul (0-0.8); ABS Neutrophils 6.8 10^3/ul (1.5-7.7); ABS Nucleated RBC 0 10^3/ul; Eosinophil % 0.7 %; Hematocrit 32 % (42-52); Hemoglobin 10.9 g/dl (14.0-18.0); Lymphocyte % 9.1 %; Mean Corpuscular HGB Conc 34 g/dl (31-36); Mean Corpuscular Hemoglobin 30 pg (27-31); Mean Corpuscular Volume 87 fL (80-94); Nucleated Red Blood Cells % 0; Platelet Count 244 10^3/ul (150-450); Red Blood Count 3.66 10^6/ul (4.00-5.40); Red Cell Distribution Width 15 % (10.5-15)
[2018-05-01 18:15] LABS: EGFR Non-African American 185.9 (>60)
[2018-05-01] MEDS ORDERED: NS 0.9% 1000 ML* 1,000 ML IV ONE (19:26)
[2018-05-01] MEDS ORDERED: Ketorolac INJ* 30 MG/ML 1 ML VIAL IV PUSH ONE (19:26)
[2018-05-01 21:53] LABS: Urine Appearance Clear; Urine Blood 1+ (Negative); Urine Color Yellow; Urine Ketones Negative (Negative); Urine Protein Negative (Negative); Urine Red Blood Cell Trace(0-2/hpf) (Absent); Urine Specific Gravity 1.009 (1.010-1.030); Urine Urobilinogen Negative (Negative); Urine White Blood Cell Absent (Absent)
[2018-05-01] MEDS ORDERED: Ondansetron INJ* 2 MG/ML VIAL IV PRN (22:03)
[2018-05-01] MEDS ORDERED: NS 0.9% 1000 ML* 1,000 ML IV SCH (22:15)
[2018-05-01] MEDS ORDERED: Acyclovir SUSP(*) 200 MG/5 ML UDC G TUBE SCH (23:00)
[2018-05-01] MEDS: hydrALAZINE IV* 20 MG/ML VIAL IV SLOW PU PRN (23:03)
--- NOTE | 2018-05-02 01:27 | HP ---
CC: Dr. Jarvis Reid * MEDICINE HISTORY AND PHYSICAL: DATE OF ADMISSION: 05/01/18 PROVIDER: Kaela Brewer NP ATTENDING PHYSICIAN: Dr. Tristan Pantoja * (as dictated by Kaela Brewer NP). PRIMARY CARE PROVIDER: Dr. Jarvis Reid. CHIEF COMPLAINT: Leaking G-tube. HISTORY OF PRESENT ILLNESS: Mr. Chappell is a 78-year-old male patient who presents today via EMS accompanied by his daughter and underwriting technician with concern for a leaking G-tube. He does live at home with his daughter and home health aids. He is unable to verbally contribute to the history, so history was provided by his daughter and healthcare proxy, Lydia Chappell. She states that she initially came in because his G-tube "needs to come out." She states that the patient's primary care provider told her that it needs to come out because it is "broken and rotted" and he has had it for 2 years. She states that it cannot be done in the ER and that must be done by specialist. Additionally, she reports that this week the patient has been yelling out more often secondary to pain. She states that baseline he is able to say one or two words. He does appear to be more comfortable this week. On Thursday, they noticed that he started having a rash to the right side of his buttocks and down the back of the right thigh and appeared to have increased pain. He also had a low-grade fever that was measured at 99.9 rectally. She also describes increased secretions with foul odor from the mouth and concern for infection and sepsis. When she called the primary care provider at [place], she was advised to come into the ER. Here in the ER, white blood cell count was unremarkable, but Mr. Chappell was noted to have a sodium of 125. Chest x-ray was within normal limits. PAST MEDICAL HISTORY: Includes: 1. Parkinsonism. 2. Progressive supranuclear palsy. 3. History of aspiration pneumonia, status post PEG placement. 4. Hypertension. 5. Hyperlipidemia. 6. Restless leg syndrome. PAST SURGICAL HISTORY: Includes: 1. Right rotator cuff repair. 2. G-tube placement. 3. Lumbar spinal surgery. MEDICATIONS: He is on no prescribed medications. His daughter reports that he takes organic multivitamins and Goldenseal. As far as nutrition goes, they feed him pureed table food through his G-tube and sometimes will use the organic Liquid Hope supplement. They state that he uses non-dairy supplementation. ALLERGIES: No known allergies. FAMILY HISTORY: Positive for coronary artery disease, hypertension, hyperlipidemia. SOCIAL HISTORY: Family denies tobacco, alcohol, or recreational drug use. He lives with his daughter and has a underwriting technician. He is completely dependent on others. His daughter, Lydia Chappell, is his healthcare proxy and surrogate decision maker. REVIEW OF SYSTEMS: Limited secondary to nonverbal patient. Obtainable review of systems as per HPI. PHYSICAL EXAMINATION GENERAL: This is a frail cachectic chronically ill-appearing male, appears older than stated age. He is contracted. He is lying in bed. He does appear to be comfortable at this time and in no acute distress. VITAL SIGNS: Temperature 98.2, pulse rate 58, respiratory rate 19, blood pressure 199/92, and O2 saturation is 100% on room air. HEENT: Head is atraumatic and normocephalic. Pupils are equal and reactive. Oral mucosa is dry. There is no oropharyngeal erythema or exudate. I do note a small area of focal irritation to the roof of the mouth. No pus or surrounding bleeding or erythema noted. NECK: Supple. No JVD noted. No carotid bruits auscultated. LUNGS: Clear to auscultation. CARDIAC: Regular rate and rhythm. No murmurs, rubs, or gallops appreciated. There is no peripheral edema. Distal pulses are symmetric and equal. ABDOMEN: Soft, nontender, concave. Bowel sounds are heard times all 4 quadrants. There is a G-tube placed to the mid abdomen with no surrounding pus or drainage around the insertion site. There is no surrounding erythema or odor. The tube itself is a brown large bore tube with a noted knot in it. There is no port at the end of the tube. MUSCULOSKELETAL: The patient is contracted with limited range of motion. I cannot extend the arms or the legs. NEURO: The patient is minimally responsive, does not respond to commands. He is mostly nonverbal. SKIN: There is a vesicular rash on the right buttock and posterior thigh. There is currently stool on his buttocks, so I cannot fully appreciate any other open areas. I do not note any open areas to the exposed hips or sacrum. LABORATORY DATA AND DIAGNOSTIC STUDIES: EKG shows sinus bradycardia at a rate of 57 with right bundle branch block and left anterior fascicular block, this was seen on previous EKG in August 2017. No significant ST changes. Chest x- ray shows no acute pathology. Laboratory data: CBC: WBC 8000, hemoglobin 10.9, hematocrit 32, platelet count 244. Sodium 125, potassium 4.1, chloride 89, carbon dioxide 31, BUN 13, creatinine 0.44, glucose 88, lactic acid 0.7, calcium 8.7, magnesium 1.9. Total bilirubin 0.4, AST 23, ALT 17, alk phos 59, troponin 0.01, albumin 3.1, TSH 2.53. Old medical records were reviewed. Please also note the patient's urinalysis is positive for blood only. ASSESSMENT AND PLAN: This is an emaciated 78-year-old male who presents today with concern for nonfunctioning G-tube and hyponatremia. He will be admitted to the medicine floor. The plan is as follows: 1. Hyponatremia. I suspect that this is likely secondary to dehydration, although this may also be secondary to SIADH, it is unclear at this time. He does appear to be dry. He has received 1 L of fluid and we will give him an additional liter. Overall, he does appear to be well attended to, but is very frail. We did discuss this with his daughter and she is in agreement with the plan to give fluids and support him at this time. 2. G-tube malfunction. I did explain that the G-tube could be attended to as an outpatient; however, they have had difficulty with this at the very least as this is the patient's only form of nutrition at this time. We will have a G- tube check ordered pre Radiology to evaluate the functionality of the G-tube and to ensure that there are no other further abnormalities behind the G-tube. He will likely need a replace in which case once the G-tube check is finished, we could certainly consult GI. It may be beneficial to also consult GI in the morning given this patient's history and needs. 3. Failure to thrive and protein-calorie malnutrition. The patient's weight does appear to be inaccurate. I have asked the floor nurses to weigh the patient. He does not appear to be weigh 130 pounds, so likely weight is less. His muscle mass is poor and his creatinine is probably a poor reflexion as well of this. Again, he does look dry. His albumin is 3.1. We will check a pre- albumin in the morning in addition to his other followup labs. Currently, he is n.p.o., but I requested a dietitian consult in the morning to discuss supplementation while here in the facility. Family states that they would like to bring in the Liquid Hope organic supplementation, but would be open to other protein drinks that are available here. Again, the G-tube is questionable at this point in time, so it may not be safe to use. We will try to re-feed the patient as soon as we determine it is safe to do so. In regards to palliative care, I did try to approach it with the daughter. She would like to continue with measured as described above. I have put in a Palliative Care consult as she may benefit from seeing whatever resources are available for community help as they do offer palliative care. Further discussion and teaching would be beneficial. 4. Hypertension. He is not currently on medications; however, his blood pressure is reading in the 190 systolically. I suspect that some of this may be secondary to his contractures and being tense when his blood pressure was taken. I have asked for manual blood pressures, but he is ordered p.r.n. hydralazine for the time being. He may also benefit from a clonidine patch; however, he does not have much in the way of fat pad, so I am not sure how effective this would be. We will start with the hydralazine and further implement our plan of care from there. 5. Shingles. The patient looks like he has a right-sided herpes zoster outbreak to the right buttock and thigh. He is within a 72-hour window and I will go ahead and start acyclovir suspension that can be given via the G-tube. 6. DVT prophylaxis. He is ordered q.12 heparin. 7. Code status: I did discuss this at length with the daughter. He was formally a full code. She is agreed to change the MOLST to DNR/DNI, which has been completed and signed and is on the chart. TIME SPENT: Approximately 65 minutes were spent on this admission with more than half that time spent [id number] with the patient and family, obtaining history and physical, performing physical examination, and reviewing the plan of care. Plan of care was also reviewed with my attending, Dr. Pantoja, who is in agreement. KAELA BREWER, [facility] [facility] [id number]/[facility] #: [id number] LINDA
[2018-05-02] MEDS: Ketorolac INJ* 15 MG/ML 1 ML VIAL IV PUSH PRN ×3 (02:27→18:21)
[2018-05-02] MEDS: Acyclovir SUSP(*) 200 MG/5 ML UDC G TUBE SCH ×5 (10:05→22:27)
[2018-05-02] MEDS ORDERED: ACYCLOVIR 200 MG/5 ML G TUBE SCH (14:00)
[2018-05-02] MEDS: D5W NS 0.9% 20Meq KCL 1000 ML* 1,000 ML IV SCH (14:01)
[2018-05-02] MEDS: Heparin VIAL(*) 5000 UNITS/ML VIAL (FIVE THOUSAND) SUBCUT SCH ×2 (14:18→20:05)
--- NOTE | 2018-05-02 16:53 | PN ---
Subjective Date of Service: 05/02/18 Interval History: Patient seen this morning before his daughter was present. I did see him while his home health aid was present in the room and I spoke to the daughter over the phone. She had several complains: 1. Asking if I can have ENT to address sinsus secretions 2. Asking to have Neurology for evaluations 3. Asking if he can have PT for range of motion 4. Asking to have the tube feed exchanged Patient is non verbal, he is extremely contracted. Moaning when turned. Past Medical History: Unchanged from Admission Objective Active Medications: Acetaminophen (Tylenol Adult Liq*) 650 mg G TUBE Q4H PRN PRN Reason: FEVER/PAIN Acyclovir (Zovirax Oral Suspension(*)) 800 mg G TUBE QID [facility] Last Admin: 05/02/18 14:04 Dose: 800 mg Heparin Sodium (Porcine) (Heparin Vial(*)) 5,000 units SUBCUT Q12HR [facility] Last Admin: 05/02/18 14:18 Dose: Not Given Hydralazine HCl (Apresoline Iv*) 5 mg IV SLOW PU Q6H PRN PRN Reason: BLOOD PRESSURE Last Admin: 05/01/18 23:03 Dose: 5 mg Potassium Chloride/Dextrose (D5w Ns 0.9% 20meq Kcl 1000 Ml*) 1,000 mls @ 100 mls/hr IV PER RATE [facility] Last Admin: 05/02/18 14:01 Dose: 100 mls/hr Ketorolac Tromethamine (Toradol Inj*) 15 mg IV PUSH Q6H PRN PRN Reason: PAIN Stop: 05/04/18 22:12 Last Admin: 05/02/18 11:01 Dose: 15 mg Ondansetron HCl (Zofran Inj*) 4 mg IV Q6H PRN PRN Reason: NAUSEA/VOMITING Vital Signs - 8 hr 05/02/18 05/02/18 10:22 10:53 Pulse Rate 60 Respiratory 16 Rate Oxygen Devices in Use Now: None Appearance: awake, eye open but he is mute non verbal Ears/Nose/Mouth/Throat: - - dry oral mucosa Neck: NL Appearance and Movements; NL JVP Respiratory: Symmetrical Chest Expansion and Respiratory Effort, Clear to Auscultation Cardiovascular: No Edema Abdominal: - - peg tube in place - Nutrition: Malnutrition Diagnosis/Plan Malnutrition Assessment by Registered Dietitian: Malnutrition Assessment Clinical Characteristics Chronic,Severe Malnutrition Assessment: - Severe temporal muscle wasting Criteria - 25% wt loss since 09/2016 ( ~ 1.5 years) - Declined in physiological function - weakness - Underweight statuts, BMI 17.9 Malnutrition Assessment: Recommend 5.5 cans of Jevity 1.2 per day ( during Interventions admission) to provide pt w/ 32 kcals/kg and 1.5 grams of protein/kg. Malnutrition Assessment: Goals 1. Ultimately, adequate nutrition to promote wt repletion and maintain hydration w/o additional undesired wt loss. 2. Nutrition will maintain skin integirty w/o pressure related breakdown. Result Diagrams: 05/01/18 17:47 05/01/18 19:56 Assess/Plan/Problems-Billing Assessment: 78 year old male present to the ER by his daughter stating his PEG tube has been non functioning and wanted to have it exchanged. also found to be hyponatremic - Patient Problems (1) Gastrostomy tube dysfunction Current Visit: Yes Status: Acute Code(s): K94.23 - GASTROSTOMY MALFUNCTION SNOMED Code(s): 040984703 Comment: - His G-Tube appears to be extremely eroded. - Dr. Santoro did comes and exchanged his tube placing gandhi catheter type - She will need to have it exchange every 6 months - I explained to the patient that he needs to arrange outpatient follow up for the rest of her concerns for ENT and Neurology. Also she needs to keep appointment with his GI routine for routine Gtube exchanged - I will call community health worker (2) Progressive supranuclear palsy Current Visit: No Status: Acute Code(s): G23.1 - PROGRESSIVE SUPRANUCLEAR OPHTHALMOPLEGIA SNOMED Code(s): 32810802 Comment: End-stage, irreversible. Patient will be benefit from palliative care consult - He is extremely contracted. I will order PT to educate family and caregiver his PT routine at home (3) Dementia Current Visit: No Status: Chronic Code(s): F03.90 - UNSPECIFIED DEMENTIA WITHOUT BEHAVIORAL DISTURBANCE SNOMED Code(s): 38337805 Comment: As of 08/06/16, in a vegatative state. (4) HLD (hyperlipidemia) Current Visit: No Status: Chronic Code(s): E78.5 - HYPERLIPIDEMIA, UNSPECIFIED SNOMED Code(s): 22432383 (5) HTN (hypertension) Current Visit: No Status: Chronic Code(s): I10 - ESSENTIAL (PRIMARY) HYPERTENSION SNOMED Code(s): 81149235 (6) Parkinson disease Current Visit: No Status: Chronic Code(s): G20 - PARKINSON'S DISEASE SNOMED Code(s): 60044030 Comment: Stable. Continue Levadopa/carbidopa. (7) Hyponatremia Current Visit: Yes Status: Acute Code(s): E87.1 - HYPO-OSMOLALITY AND HYPONATREMIA SNOMED Code(s): 34244138
[2018-05-02] MEDS: Acetaminophen ADULT LIQ* 650 MG/20.3 ML UDC G TUBE PRN (22:30)
[2018-05-03] MEDS: D5W NS 0.9% 20Meq KCL 1000 ML* 1,000 ML IV SCH ×2 (01:14→16:37)
[2018-05-03] MEDS: hydrALAZINE IV* 20 MG/ML VIAL IV SLOW PU PRN (01:36)
--- NOTE | 2018-05-03 05:46 | OP ---
CC: Dr. Pantoja; Dr. Santoro OPERATIVE REPORT: DATE OF OPERATION: 05/02/18. DATE OF : 38. SURGEON: Rodolfo Santoro MD. PRE-OP DIAGNOSIS: POST-OP DIAGNOSIS: OPERATIVE PROCEDURE: INDICATION: Mr. Chappell is a 78-year-old severely debilitated male who is severely contracted and rel ies on tube feeds to maintain all his nutrition. He was brought to the hospital with failure of his G-tube. On examination today, he has a PEG type G-tube in place which has broken off and has been tied to pre vent it from leaking. I discussed this with his caregiver and decided that the G-tube would be [place] ed. Therefore, the previous tube was removed and the mushroom tip came out easily and then a 24-Fren ch Phillip catheter, which appeared to be approximately the size of the old tube was inserted without d ifficulty. The balloon was blown up and then this was retracted back and it flushed and aspirated ea sily. Bandage was placed. He tolerated this well. Disposition will be per the Medical Service. [id number]/[facility] #: [id number]
[2018-05-03 06:05] LABS: ABS Basophils 0 10^3/ul (0-0.2); ABS Eosinophils 0 10^3/ul (0-0.6); ABS Lymphocytes 0.4 10^3/ul (1.0-4.8); ABS Monocytes 0.7 10^3/ul (0-0.8); ABS Neutrophils 14.7 10^3/ul (1.5-7.7); ABS Nucleated RBC 0 10^3/ul; Eosinophil % 0.1 %; Hematocrit 21 % (42-52); Hemoglobin 6.9 g/dl (14.0-18.0); Lymphocyte % 2.3 %; Mean Corpuscular HGB Conc 33 g/dl (31-36); Mean Corpuscular Hemoglobin 29 pg (27-31); Mean Corpuscular Volume 89 fL (80-94); Mean Platelet Volume 6.5 fL (7.4-10.4); Nucleated Red Blood Cells % 0; Platelet Count 184 10^3/ul (150-450); Red Blood Count 2.36 10^6/ul (4.00-5.40); Red Cell Distribution Width 15 % (10.5-15); White Blood Count 15.8 10^3/ul (3.5-10.8)
[2018-05-03 06:27] LABS: EGFR Non-African American 289.2 (>60)
[2018-05-03] MEDS ORDERED: Magnesium Sulfate 2 GM IV* 2 GM/50 ML BAG IVPB ONE (07:30)
[2018-05-03] MEDS: Ketorolac INJ* 15 MG/ML 1 ML VIAL IV PUSH PRN (09:37)
[2018-05-03] MEDS: Heparin VIAL(*) 5000 UNITS/ML VIAL (FIVE THOUSAND) SUBCUT SCH (09:37)
[2018-05-03] MEDS: Acyclovir SUSP(*) 200 MG/5 ML UDC G TUBE SCH ×4 (09:38→21:18)
[2018-05-03] MEDS: Potassium & Sodium Phos 250MG* = 1 PACKET PO SCH ×2 (09:40→21:17)
--- NOTE | 2018-05-03 11:57 | PN ---
Subjective Date of Service: 05/03/18 Interval History: Patient seen today, he remains non verbal. contracted. Daughter in the room. She is waiting for the PT to meet and assess patient mobility as she does want to learn from PT to help her father at home with ROM! I explained that he is anemic and possible iron deficient, versus GI bleed with Hgb of 6'sh and will require transfusion due to risk of inducing [place]. She does want transfusion at this time and wants to take time to think about it. Nutrition consult obtained for guidance for nutritional feed Past Medical History: Unchanged from Admission Objective Active Medications: Acetaminophen (Tylenol Adult Liq*) 650 mg G TUBE Q4H PRN PRN Reason: FEVER/PAIN Last Admin: 05/02/18 22:30 Dose: 650 mg Acyclovir (Zovirax Oral Suspension(*)) 800 mg G TUBE QID [facility] Last Admin: 05/03/18 09:38 Dose: 800 mg Heparin Sodium (Porcine) (Heparin Vial(*)) 5,000 units SUBCUT Q12HR [facility] Last Admin: 05/03/18 09:37 Dose: Not Given Hydralazine HCl (Apresoline Iv*) 5 mg IV SLOW PU Q6H PRN PRN Reason: BLOOD PRESSURE Last Admin: 05/03/18 01:36 Dose: 5 mg Potassium Chloride/Dextrose (D5w Ns 0.9% 20meq Kcl 1000 Ml*) 1,000 mls @ 100 mls/hr IV PER RATE [facility] Last Admin: 05/03/18 01:14 Dose: 100 mls/hr Ketorolac Tromethamine (Toradol Inj*) 15 mg IV PUSH Q6H PRN PRN Reason: PAIN Stop: 05/04/18 22:12 Last Admin: 05/03/18 09:37 Dose: 15 mg Ondansetron HCl (Zofran Inj*) 4 mg IV Q6H PRN PRN Reason: NAUSEA/VOMITING Potassium Phos/Sodium Phos (Neutra Phos 250 Mg Bassem*) 250 mg PO BID [facility] Last Admin: 05/03/18 09:40 Dose: 250 mg Vital Signs - 8 hr 05/03/18 07:29 Temperature 97.4 F Pulse Rate 71 Respiratory 20 Rate Blood Pressure 143/55 (mmHg) O2 Sat by Pulse 99 Oximetry Oxygen Devices in Use Now: None Appearance: Awake, eyes open but non verbal, contracted laying in a position Eyes: No Scleral Icterus, - Ears/Nose/Mouth/Throat: - - dry oral mucosa Neck: - - no mass. no bruit Respiratory: - - transmitted upper airway breath sounds Cardiovascular: NL Sounds; No Murmurs; No JVD Abdominal: NL Sounds; No Tenderness; No Distention, - - peg tube in place Extremities: No Edema, - - contracted and muscular hypotrophy Skin: No Rash or Ulcers - Nutrition: Malnutrition Diagnosis/Plan Malnutrition Assessment by Registered Dietitian: Malnutrition Assessment Clinical Characteristics Chronic,Severe Malnutrition Assessment: - Severe temporal muscle wasting Criteria - 25% wt loss since 09/2016 ( ~ 1.5 years) - Declined in physiological function - weakness - Underweight statuts, BMI 17.9 Malnutrition Assessment: Recommend 5.5 cans of Jevity 1.2 per day ( during Interventions admission) to provide pt w/ 32 kcals/kg and 1.5 grams of protein/kg. Malnutrition Assessment: Goals 1. Ultimately, adequate nutrition to promote wt repletion and maintain hydration w/o additional undesired wt loss. 2. Nutrition will maintain skin integirty w/o pressure related breakdown. Result Diagrams: 05/03/18 05:45 05/03/18 05:45 Assess/Plan/Problems-Billing Assessment: 78 year old male present to the ER by his daughter stating his PEG tube has been non functioning and wanted to have it exchanged. also found to be hyponatremic - Patient Problems (1) Hyponatremia Current Visit: Yes Status: Acute Code(s): E87.1 - HYPO-OSMOLALITY AND HYPONATREMIA SNOMED Code(s): 19329165 Comment: most likely for disproportinal feeding at home and water intake. Family were giving the patient puree food from stock blender and push it through is tube. Nutrion consult obtained. Will start him on Jevity (2) Gastrostomy tube dysfunction Current Visit: Yes Status: Acute Code(s): K94.23 - GASTROSTOMY MALFUNCTION SNOMED Code(s): 839743133 Comment: - His initial G-Tube appeared to be extremely eroded. I spoke to Dr Santoro and he exchanged his peg tube at bedside placing gandhi catheter type - She will need to have it exchange every 6 months, and will need to have her follow up outpatient with his GI routine for routine Gtube exchanged at [facility] - plant operations worker called for several concerns that the patient leleuthdevin has for his ongoing routine care (3) Progressive supranuclear palsy Current Visit: No Status: Acute Code(s): G23.1 - PROGRESSIVE SUPRANUCLEAR OPHTHALMOPLEGIA SNOMED Code(s): 78179688 Comment: End-stage, irreversible. Patient will be benefit from palliative care consult - He is extremely contracted. I will order PT to educate family and caregiver his PT routine at home (4) Dementia Current Visit: No Status: Chronic Code(s): F03.90 - UNSPECIFIED DEMENTIA WITHOUT BEHAVIORAL DISTURBANCE SNOMED Code(s): 43003030 Comment: As of 08/06/16, in a vegatative state. (5) HLD (hyperlipidemia) Current Visit: No Status: Chronic Code(s): E78.5 - HYPERLIPIDEMIA, UNSPECIFIED SNOMED Code(s): 27121471 (6) HTN (hypertension) Current Visit: No Status: Chronic Code(s): I10 - ESSENTIAL (PRIMARY) HYPERTENSION SNOMED Code(s): 86418184 (7) Parkinson disease Current Visit: No Status: Chronic Code(s): G20 - PARKINSON'S DISEASE SNOMED Code(s): 79457383 Comment: Stable. Continue Levadopa/carbidopa. (8) Anemia Current Visit: Yes Status: Acute Code(s): D64.9 - ANEMIA, UNSPECIFIED SNOMED Code(s): 271916282 Comment: - unclear if it is from GI bleed or iron deficiency anemia. Will order iron pannel, B12, Folate, Stool OB - Will start on iron supplement pending work up - Daugther at this time declined GI bleed - added PPI as well
[2018-05-03] MEDS ORDERED: Multivitamins/Minerals TAB PO SCH (13:00)
[2018-05-03] MEDS: Acetaminophen ADULT LIQ* 650 MG/20.3 ML UDC G TUBE PRN ×2 (13:58→21:18)
[2018-05-03] MEDS: Ferrous Sulfate LIQ* 300 MG/5 ML UDC PO SCH ×2 (13:59→21:18)
--- NOTE | 2018-05-03 16:23 | CONSULT ---
Palliative / Hospice Consult Ordering Provider: Jen Hurst - Subjective Code Status: DNR Advance Directives Location: In Chart MOLST Part A Completed: Yes - DNR MOLST Part E Completed:: Yes - DNI, already has feeding tube HCP Completed: Yes - daughter Lydia Chappell - History or Present Illness History or Present Illness: This 78 year old man with a long history of progressive supranuclear palsy and Parkinson's disease is hospitalized at present because his G tube has been leaking and needed replacement. This patient is well-known to [facility], [place] and in fact was receiving hospice services several years ago but had to be discharged for failure to decline. His daughter, who is his forensic structural engineer and HCP, removed him from a SNF to care for him at home because she thought he was not getting adequate care. Since then he has had Medicaid-funded 24 hour care and services, and Lydia has provided impeccable care with frequent repositioning and skin care, and nutritional support she prepares by pureeing table food. His weight has declined, but very slowly, 25% over 2 years (hospice certification requires 10% drop in body mass over 6 months to be used as a diagnosis.) His nutritional status is poor, but his albumin was 2.2 in 2017 and is now 3.1. He had decubiti when he was in the SNF, but these have healed and his skin is now intact. He has had temporal muscle wasting for seveeral years. He is totally nonresponsive , and I have seen him a few times at home and he has never followed a command or shown any evidence of cognitive function to my exam. Nevertheless Lydia is convinced that he is fully aware and communicates with her, expressing his desire to remain alive and "keep fighting." She feels he is enjoying TV shows and conversations. He has severe contractures. His MOLST form specifies DNR and DNI. Last week his daughter called [facility] [place] and announced that she was "thinking of" weaning his G tube feedings. We discussed this today and she is not able to commit to this plan, because she feels it would be like "pulling the plug" on her father. She wanted him signed on to hospice again so she could have support in weaning his feedings. He has now had a new G tube placed (which needs to be done every 6 months) and he is anemic without evidence of GI blood loss, but has been anemic for a few years, and he has hyponatremia likely on the basis of his inappropriate G tube feedings. Lab Values: Abnormal Lab Results 05/03/18 05/03/18 05/03/18 05:45 05:45 05:45 WBC 15.8 H RBC 2.36 L Hgb 6.9 L Hct 21 L MCV 89 MCH 29 MCHC 33 RDW 15 Plt Count 184 MPV 6.5 L Neut % (Auto) 93.0 Lymph % (Auto) 2.3 [place] % (Auto) 4.5 Eos % (Auto) 0.1 Baso % (Auto) 0.1 Absolute Neuts (auto) 14.7 H Absolute Lymphs (auto) 0.4 L Absolute Monos (auto) 0.7 Absolute Eos (auto) 0 Absolute Basos (auto) 0 Absolute Nucleated RBC 0 Nucleated RBC % 0 Sodium 135 D Potassium TNP Chloride 107 Carbon Dioxide 23 Anion Gap 5 BUN 7 Creatinine < 0.30 L Est GFR ( Amer) 350.0 Est GFR (Non-Af Amer) 289.2 BUN/Creatinine Ratio 23.0 H Glucose 168 H Calcium 7.4 L Phosphorus 2.2 L Magnesium 1.6 L Iron Cancelled TIBC Cancelled % Saturation Cancelled Unsat Iron Binding Cancelled Transferrin Cancelled Ferritin Cancelled Vitamin B12 Cancelled Folate Cancelled Blood Type A Positive Antibody Screen Negative 05/03/18 12:57 WBC RBC Hgb Hct MCV MCH MCHC RDW Plt Count MPV Neut % (Auto) Lymph % (Auto) [place] % (Auto) Eos % (Auto) Baso % (Auto) Absolute Neuts (auto) Absolute Lymphs (auto) Absolute Monos (auto) Absolute Eos (auto) Absolute Basos (auto) Absolute Nucleated RBC Nucleated RBC % Sodium Potassium 3.5 Chloride Carbon Dioxide Anion Gap BUN Creatinine Est GFR ( Amer) Est GFR (Non-Af Amer) BUN/Creatinine Ratio Glucose Calcium Phosphorus Magnesium Iron < 15 L TIBC 270 % Saturation 6 L Unsat Iron Binding < 255 Transferrin 193 L Ferritin 868.1 H Vitamin B12 865 Folate 14.43 Blood Type Antibody Screen Laboratory Last Values WBC 15.8 10^3/ul (3.5-10.8) H 05/03/18 05:45 RBC 2.36 10^6/ul (4.00-5.40) L 12/10/18 05:45 Hgb 6.9 g/dl (14.0-18.0) L 05/03/18 05:45 Hct 21 % (42-52) L 05/03/18 05:45 MCV 89 fL (80-94) 05/03/18 05:45 MCH 29 pg (27-31) 05/03/18 05:45 MCHC 33 g/dl (31-36) 05/03/18 05:45 RDW 15 % (10.5-15) 05/03/18 05:45 Plt Count 184 10^3/ul (150-450) 05/03/18 05:45 MPV 6.5 fL (7.4-10.4) L 05/03/18 05:45 Neut % (Auto) 93.0 % 05/03/18 05:45 Lymph % (Auto) 2.3 % 05/03/18 05:45 [place] % (Auto) 4.5 % 05/03/18 05:45 Eos % (Auto) 0.1 % 05/03/18 05:45 Baso % (Auto) 0.1 % 05/03/18 05:45 Absolute Neuts (auto) 14.7 10^3/ul (1.5-7.7) H 05/03/18 05:45 Absolute Lymphs (auto) 0.4 10^3/ul (1.0-4.8) L 05/03/18 05:45 Absolute Monos (auto) 0.7 10^3/ul (0-0.8) 05/03/18 05:45 Absolute Eos (auto) 0 10^3/ul (0-0.6) 05/03/18 05:45 Absolute Basos (auto) 0 10^3/ul (0-0.2) 05/03/18 05:45 Absolute Nucleated RBC 0 10^3/ul 05/03/18 05:45 Nucleated RBC % 0 05/03/18 05:45 Sodium 135 mmol/L (135-145) D 05/03/18 05:45 Potassium 3.5 mmol/L (3.5-5.0) 05/03/18 12:57 Chloride 107 mmol/L (101-111) 05/03/18 05:45 Carbon Dioxide 23 mmol/L (22-32) 05/03/18 05:45 Anion Gap 5 mmol/L (2-11) 05/03/18 05:45 BUN 7 mg/dL (6-24) 05/03/18 05:45 Creatinine < 0.30 mg/dL (0.67-1.17) L 05/03/18 05:45 Est GFR ( Amer) 350.0 (>60) 05/03/18 05:45 Est GFR (Non-Af Amer) 289.2 (>60) 05/03/18 05:45 BUN/Creatinine Ratio 23.0 (8-20) H 05/03/18 05:45 Glucose 168 mg/dL (70-100) H 05/03/18 05:45 Lactic Acid 0.7 mmol/L (0.5-2.0) 05/01/18 17:47 Calcium 7.4 mg/dL (8.6-10.3) L 05/03/18 05:45 Phosphorus 2.2 mg/dL (2.5-5.0) L 05/03/18 05:45 Magnesium 1.6 mg/dL (1.9-2.7) L 05/03/18 05:45 Iron < 15 ug/dL (50-212) L 05/03/18 12:57 TIBC 270 mcg/dL (250-450) 05/03/18 12:57 % Saturation 6 % (15-55) L 05/03/18 12:57 Unsat Iron Binding < 255 ug/dL 05/03/18 12:57 Transferrin 193 mg/dL (203-362) L 05/03/18 12:57 Ferritin 868.1 ng/mL (24-336) H 05/03/18 12:57 Total Bilirubin 0.40 mg/dL (0.2-1.0) 05/01/18 17:47 AST 23 U/L (13-39) 05/01/18 19:56 ALT 17 U/L (7-52) 05/01/18 17:47 Alkaline Phosphatase 59 U/L (34-104) 05/01/18 17:47 Troponin I 0.01 ng/mL (<0.04) 05/01/18 17:47 Total Protein 6.6 g/dL (6.4-8.9) 05/01/18 17:47 Albumin 3.1 g/dL (3.2-5.2) L 05/01/18 17:47 Globulin 3.5 g/dL (2-4) 05/01/18 17:47 Albumin/Globulin Ratio 0.9 (1-3) L 05/01/18 17:47 Vitamin B12 865 pg/mL (180-914) 05/03/18 12:57 Folate 14.43 ng/mL (>3.99) 05/03/18 12:57 TSH 2.53 mcIU/mL (0.34-5.60) 05/01/18 17:47 Urine Color Yellow 05/01/18 21:27 Urine Appearance Clear 05/01/18 21:27 Urine pH 7.0 (5-9) 05/01/18 21:27 Ur Specific [place] 1.009 (1.010-1.030) L 05/01/18 21:27 Urine Protein Negative (Negative) 05/01/18 21:27 Urine Ketones Negative (Negative) 05/01/18 21:27 Urine Blood 1+ (Negative) A 05/01/18 21:27 Urine Nitrate Negative (Negative) 05/01/18 21:27 Urine Bilirubin Negative (Negative) 05/01/18 21:27 Urine Urobilinogen Negative (Negative) 05/01/18 21:27 Ur Leukocyte Esterase Negative (Negative) 05/01/18 21:27 Urine WBC (Auto) Absent (Absent) 05/01/18 21:27 Urine RBC (Auto) Trace(0-2/hpf) (Absent) 05/01/18 21:27 Urine Bacteria Absent (Absent) 05/01/18 21:27 Urine Glucose Negative (Negative) 05/01/18 21:27 Blood Type A Positive 05/03/18 05:45 Antibody Screen Negative 05/03/18 05:45 - Objective Active Medications: Acetaminophen (Tylenol Adult Liq*) 650 mg G TUBE Q4H PRN PRN Reason: FEVER/PAIN Last Admin: 05/03/18 13:58 Dose: 650 mg Acyclovir (Zovirax Oral Suspension(*)) 800 mg G TUBE QID COUNT INCLUDES THE [facility] Last Admin: 05/03/18 14:01 Dose: 800 mg Ferrous Sulfate (Feosol Liq*) 300 mg PO TID COUNT INCLUDES THE [facility] Last Admin: 05/03/18 13:59 Dose: 300 mg Hydralazine HCl (Apresoline Iv*) 5 mg IV SLOW PU Q6H PRN PRN Reason: BLOOD PRESSURE Last Admin: 05/03/18 01:36 Dose: 5 mg Potassium Chloride/Dextrose (D5w Ns 0.9% 20meq Kcl 1000 Ml*) 1,000 mls @ 100 mls/hr IV PER RATE [facility] Last Admin: 05/03/18 01:14 Dose: 100 mls/hr Multivitamins (Theragran W/Minerals Liq*) 15 ml PO DAILY COUNT INCLUDES THE [facility] Ondansetron HCl (Zofran Inj*) 4 mg IV Q6H PRN PRN Reason: NAUSEA/VOMITING Potassium Phos/Sodium Phos (Neutra Phos 250 Mg Bassem*) 250 mg PO BID COUNT INCLUDES THE [facility] Last Admin: 05/03/18 09:40 Dose: 250 mg Vital Signs: Vital Signs: Temp Pulse Resp BP Pulse Ox 97.4 F 71 20 143/55 99 05/03/18 07:29 05/03/18 07:29 05/03/18 08:00 05/03/18 07:29 05/03/18 07:29 Patient Weight: Weight 107 lb 6.4 oz Intake and Output: Intake & Output 05/01/18 05/02/18 05/03/18 05/04/18 06:59 06:59 06:59 06:59 Intake Total 3000 1231 235 Balance 3000 1231 235 Weight 107 lb 6.4 oz Intake: IV Fluids 3000 996 D5W NS 20 meq KCL 400 NS (0.9%) 2000 596 Oral 0 0 0 Tube Feeding 235 235 Other: Estimated Void Large Medium Medium # Bowel Movements 1 1 1 Estimated Stool Amount Medium Medium Small # Voids 1 0 2 ADLs: Meal Record Start: 05/01/18 22: 51 Freq: DAILY@0900,1400,1800 Status: Active Protocol: Created 05/01/18 22:51 System (Rec: 05/01/18 22:51 System MED-C04) Document 05/02/18 09:00 [id number] (Rec: 05/02/18 09:14 [id number] MED-C09) Document 05/02/18 13:15 [id number] (Rec: 05/02/18 13:16 [id number] MED-C09) Document 05/02/18 17:43 [id number] (Rec: 05/02/18 17:43 [id number] MED-C09) Document 05/03/18 09:00 [id number] (Rec: 05/03/18 10:43 [id number] MED-C11) Document 05/03/18 14:00 [id number] (Rec: 05/03/18 15:15 [id number] MED-C11) Intake and Output Start: 05/01/18 17: 04 Freq: Status: Active Protocol: Created 05/01/18 17:04 System (Rec: 05/01/18 17:04 System [id number]) Intake and Output Start: 05/01/18 22: 51 Freq: DAILY@0600,1400,2200 Status: Active Protocol: Created 05/01/18 22:51 System (Rec: 05/01/18 22:51 System MED-C04) Document 05/02/18 05:45 [id number] (Rec: 05/02/18 05:46 [id number] MED-C16) Document 05/02/18 13:15 [id number] (Rec: 05/02/18 13:16 [id number] MED-C09) Document 05/02/18 22:00 [id number] (Rec: 05/02/18 22:30 [id number] MED-C04) Document 05/03/18 06:00 [id number] (Rec: 05/03/18 06:00 [id number] MED-C04) Document 05/03/18 14:00 [id number] (Rec: 05/03/18 15:15 [id number] MED-C11) General Impression: Cachectic, unresponsive man lying contracted in bed, severely underweight. Head: Symmetrical Eyes: No Scleral Icterus, - Ears/Nose/Mouth/Throat: Mucous Membranes Moist Neck: Trachea Midline, - - no mass. no bruit Cardiovascular: NL Sounds; No Murmurs; No JVD Respiratory: Symmetrical Chest Expansion and Respiratory Effort Abdominal: NL Sounds; No Tenderness; No Distention, - - peg tube in place Extremities: No Edema, - - contracted with extensive muscle wasting. Skin intact. Neurological: - - Essentially obtunded. - Assessment Assessment: This patient has been living in this state for several years. He is not a candidate for hospice services as long as he continues to get G tube feedings, and I explained this to his daughter. He is going to get PRBCs transfused, and his G tube feedings should be replaced with appropriate enteral nutrition in the form of Jevity or equivalent. If the patient is discharged home with [facility], he would be a good candidate for the [facility]'s new palliative program, A[facility] ( [facility]ness [facility].) They would alert [facility] when the patient becomes appropriate for end-of-life care. - Plan Consult Plan (MU): Palliative - Time On Unit Date of Evaluation: 05/03/18 Hospice Consult Time in: 15:30 Hospice Consult Time Out: 16:30 Hospice Consult Time Total: 60 > 50% of Time Spend In Counseling or Coordinating Care: Yes
[2018-05-03] MEDS: Multivitamins ADULT w/MIN LIQ* 15 ML UDC PO SCH (16:42)
[2018-05-04] MEDS: D5W NS 0.9% 20Meq KCL 1000 ML* 1,000 ML IV SCH ×2 (02:38→12:30)
[2018-05-04 06:08] LABS: ABS Basophils 0 10^3/ul (0-0.2); ABS Eosinophils 0.1 10^3/ul (0-0.6); ABS Monocytes 0.5 10^3/ul (0-0.8); ABS Neutrophils 7.8 10^3/ul (1.5-7.7); ABS Nucleated RBC 0 10^3/ul; Eosinophil % 0.9 %; Hematocrit 25 % (42-52); Hemoglobin 8.6 g/dl (14.0-18.0); Lymphocyte % 10.3 %; Mean Corpuscular HGB Conc 34 g/dl (31-36); Mean Corpuscular Hemoglobin 31 pg (27-31); Mean Corpuscular Volume 89 fL (80-94); Mean Platelet Volume 6.8 fL (7.4-10.4); Nucleated Red Blood Cells % 0; Platelet Count 197 10^3/ul (150-450); Red Blood Count 2.84 10^6/ul (4.00-5.40); Red Cell Distribution Width 15 % (10.5-15); White Blood Count 9.4 10^3/ul (3.5-10.8)
[2018-05-04 07:29] LABS: EGFR Non-African American 242.1 (>60)
[2018-05-04] MEDS: Acyclovir SUSP(*) 200 MG/5 ML UDC G TUBE SCH ×4 (08:58→21:29)
[2018-05-04] MEDS: Potassium & Sodium Phos 250MG* = 1 PACKET PO SCH ×3 (08:58→21:30)
[2018-05-04] MEDS: Multivitamins ADULT w/MIN LIQ* 15 ML UDC PO SCH (08:58)
[2018-05-04] MEDS: Ferrous Sulfate LIQ* 300 MG/5 ML UDC PO SCH ×3 (08:58→21:30)
--- NOTE | 2018-05-04 17:21 | PN ---
Subjective Date of Service: 05/04/18 Interval History: Patient seen today doing same. non verbal. Daughter is not at bedside. We discussed him in the multidisciplinary meeting today and the daughter wants to take him for rehab. Peg tube initiated. Electrolytes and iron deficiency is being replaced. Will discontinue IVF. PT could not see patient yesterday (see their note), will await their formal assessment and documentation for today Past Medical History: Unchanged from Admission Objective Active Medications: Acetaminophen (Tylenol Adult Liq*) 650 mg G TUBE Q4H PRN PRN Reason: FEVER/PAIN Last Admin: 05/03/18 21:18 Dose: 650 mg Acyclovir (Zovirax Oral Suspension(*)) 800 mg G TUBE QID [facility] Stop: 05/09/18 23:59 Last Admin: 05/04/18 14:02 Dose: 800 mg Amlodipine Besylate (Norvasc Tab*) 5 mg PO DAILY [facility] Ferrous Sulfate (Feosol Liq*) 300 mg PO TID [facility] Last Admin: 05/04/18 14:02 Dose: 300 mg Hydralazine HCl (Apresoline Iv*) 5 mg IV SLOW PU Q6H PRN PRN Reason: BLOOD PRESSURE Last Admin: 05/03/18 01:36 Dose: 5 mg Magnesium Oxide (Magox 400 Tab*) 400 mg PO DAILY [facility] Multivitamins (Theragran W/Minerals Liq*) 15 ml PO DAILY [facility] Last Admin: 05/04/18 08:58 Dose: 15 ml Ondansetron HCl (Zofran Inj*) 4 mg IV Q6H PRN PRN Reason: NAUSEA/VOMITING Potassium Chloride (Klor-Con Liquid*) 20 meq PO DAILY [facility] Potassium Phos/Sodium Phos (Neutra Phos 250 Mg Bassem*) 250 mg PO QID [facility] Stop: 05/07/18 17:59 Vital Signs - 8 hr 05/04/18 15:57 Temperature 98.1 F Pulse Rate 58 Respiratory 16 Rate Blood Pressure 158/64 (mmHg) O2 Sat by Pulse 100 Oximetry Oxygen Devices in Use Now: None Appearance: Awake, open eye on command. he does blink but does not follow a visual clue Eyes: No Scleral Icterus, - Ears/Nose/Mouth/Throat: - - Dry oral mucosa, severe temporal muscle waisting Neck: NL Appearance and Movements; NL JVP Respiratory: Symmetrical Chest Expansion and Respiratory Effort Cardiovascular: - - + murmur, RRR Abdominal: NL Sounds; No Tenderness; No Distention, - - Peg tube in place Extremities: No Edema, - - contracted - Nutrition: Malnutrition Diagnosis/Plan Malnutrition Assessment by Registered Dietitian: Malnutrition Assessment Clinical Characteristics Chronic,Severe Malnutrition Assessment: - Severe temporal muscle wasting Criteria - 25% wt loss since 09/2016 ( ~ 1.5 years) - Declined in physiological function - weakness - Underweight statuts, BMI 17.9 Malnutrition Assessment: Recommend 5.5 cans of Jevity 1.2 per day ( during Interventions admission) to provide pt w/ 32 kcals/kg and 1.5 grams of protein/kg. Malnutrition Assessment: Goals 1. Ultimately, adequate nutrition to promote wt repletion and maintain hydration w/o additional undesired wt loss. 2. Nutrition will maintain skin integirty w/o pressure related breakdown. Result Diagrams: 05/04/18 05:40 05/04/18 05:40 Assess/Plan/Problems-Billing Assessment: 78 year old male present to the ER by his daughter stating his PEG tube has been non functioning and wanted to have it exchanged. also found to be hyponatremic - Patient Problems (1) Anemia Current Visit: Yes Status: Acute Code(s): D64.9 - ANEMIA, UNSPECIFIED SNOMED Code(s): 211902388 Comment: - unclear if it is from GI bleed or iron deficiency anemia. - Iron pannel reveals severe Iron deficiency anemia. B12 and folate normal - Will start on iron supplement pending work up - Daugther at this time denied GI bleed, and yesterday 05/03/18 she declined transfusion. - Stool occult ordered not obtained yet - I placed him on PPI and follow up CBC periodically. Will minimize lab draw for now simply to monitor his electrolytes and sodium (2) Hyponatremia Current Visit: Yes Status: Acute Code(s): E87.1 - HYPO-OSMOLALITY AND HYPONATREMIA SNOMED Code(s): 06898142 Comment: - most likely for disproportinal feeding at home and water intake. Family were giving the patient puree food from batch blender and push it through his tube. Nutrion consult obtained. - He was started on Jevity at 5 cans today with water flush 30 cc before and after. Will need to monitor his Sodium for adequate water intake. - His Sodium now is up to 135 from 125! I will take him off the IVF and follow up BMP daily to adjust water flush accordingly (3) Gastrostomy tube dysfunction Current Visit: Yes Status: Acute Code(s): K94.23 - GASTROSTOMY MALFUNCTION SNOMED Code(s): 752732309 Comment: - His initial G-Tube appeared to be extremely eroded. I spoke to Dr Santoro and he exchanged his peg tube at bedside placing gandhi catheter type - She will need to have it exchange every 6 months, and will need to have her follow up outpatient with his GI routine for routine Gtube exchanged at [facility] - storage brine worker called for several concerns that the patient krista has for his ongoing routine care (4) Progressive supranuclear palsy Current Visit: No Status: Acute Code(s): G23.1 - PROGRESSIVE SUPRANUCLEAR OPHTHALMOPLEGIA SNOMED Code(s): 69543263 Comment: End-stage, irreversible. - palliative care consult noted. He is known to them from previous evaluations. Dr. Salazar input appreciated. Apparently he was under hospice care about 4 years ago and he did well. She does not think he meets palliative care at this time - He is extremely contracted. I will order PT to educate family and caregiver his PT routine at home (5) Dementia Current Visit: No Status: Chronic Code(s): F03.90 - UNSPECIFIED DEMENTIA WITHOUT BEHAVIORAL DISTURBANCE SNOMED Code(s): 71079614 Comment: As of 08/06/16, in a vegatative state. (6) HLD (hyperlipidemia) Current Visit: No Status: Chronic Code(s): E78.5 - HYPERLIPIDEMIA, UNSPECIFIED SNOMED Code(s): 03258543 (7) HTN (hypertension) Current Visit: No Status: Chronic Code(s): I10 - ESSENTIAL (PRIMARY) HYPERTENSION SNOMED Code(s): 38917589 Comment: He was not on medicationis. Will start amlodipine 5 mg daily (8) Parkinson disease Current Visit: No Status: Chronic Code(s): G20 - PARKINSON'S DISEASE SNOMED Code(s): 12085691 Comment: not on any medications at present time nor he was on any at home. (9) DVT (deep venous thrombosis) Current Visit: No Status: Acute Code(s): I82.409 - ACUTE EMBOLISM AND THOMBOS UNSP DEEP VN UNSP LOWER EXTREMITY SNOMED Code(s): 252197303 Comment: - Will place SCD until his anemia improved and until his stool for occult bleed rule out
[2018-05-04] MEDS: Magnesium Oxide TAB* 400 MG PO SCH (17:48)
[2018-05-04] MEDS: Potassium Chloride LIQUID* 20 MEQ PACKET PO SCH (17:48)
[2018-05-05 07:14] LABS: EGFR Non-African American 259.1 (>60)
[2018-05-05] MEDS: Ferrous Sulfate LIQ* 300 MG/5 ML UDC PO SCH ×3 (09:11→22:06)
[2018-05-05] MEDS: Multivitamins ADULT w/MIN LIQ* 15 ML UDC PO SCH (09:11)
[2018-05-05] MEDS: amLODIPine TAB* 5 MG PO SCH (09:11)
[2018-05-05] MEDS: Potassium Chloride LIQUID* 20 MEQ PACKET PO SCH (09:11)
[2018-05-05] MEDS: Potassium & Sodium Phos 250MG* = 1 PACKET PO SCH ×4 (09:11→22:06)
[2018-05-05] MEDS: Magnesium Oxide TAB* 400 MG PO SCH (09:11)
[2018-05-05] MEDS: Acyclovir SUSP(*) 200 MG/5 ML UDC G TUBE SCH ×4 (09:20→22:07)
[2018-05-05] MEDS: Acetaminophen ADULT LIQ* 650 MG/20.3 ML UDC G TUBE PRN ×2 (09:33→22:06)
--- NOTE | 2018-05-05 13:36 | PN ---
Subjective Date of Service: 05/05/18 Interval History: HOSPITALIST PROGRESS NOTE Patient seen and examined at bedside. Care reviewed and d/w Katheryn Hart RN. Non-verbal. Overnight events d/w RN. claim taker endorses diarrhea since tube feedings started. Family History: Unchanged from Admission Social History: Unchanged from Admission Past Medical History: Unchanged from Admission Objective Active Medications: Acetaminophen (Tylenol Adult Liq*) 650 mg G TUBE Q4H PRN PRN Reason: FEVER/PAIN Last Admin: 05/05/18 09:33 Dose: 650 mg Acyclovir (Zovirax Oral Suspension(*)) 800 mg G TUBE QID [facility] Stop: 05/09/18 23:59 Last Admin: 05/05/18 09:20 Dose: 800 mg Amlodipine Besylate (Norvasc Tab*) 5 mg PO DAILY [facility] Last Admin: 05/05/18 09:11 Dose: 5 mg Ferrous Sulfate (Feosol Liq*) 300 mg PO TID [facility] Last Admin: 05/05/18 09:11 Dose: 300 mg Hydralazine HCl (Apresoline Iv*) 5 mg IV SLOW PU Q6H PRN PRN Reason: BLOOD PRESSURE Last Admin: 05/03/18 01:36 Dose: 5 mg Loperamide HCl (Imodium Liq*) 2 mg G TUBE .SEE ORDER PRN PRN Reason: DIARRHEA Magnesium Oxide (Magox 400 Tab*) 400 mg PO DAILY [facility] Last Admin: 05/05/18 09:11 Dose: 400 mg Multivitamins (Theragran W/Minerals Liq*) 15 ml PO DAILY [facility] Last Admin: 05/05/18 09:11 Dose: 15 ml Ondansetron HCl (Zofran Inj*) 4 mg IV Q6H PRN PRN Reason: NAUSEA/VOMITING Potassium Chloride (Klor-Con Liquid*) 20 meq PO DAILY [facility] Last Admin: 05/05/18 09:11 Dose: 20 meq Potassium Phos/Sodium Phos (Neutra Phos 250 Mg Bassem*) 250 mg PO QID [facility] Stop: 05/07/18 17:59 Last Admin: 05/05/18 09:11 Dose: 250 mg Vital Signs - 8 hr 05/05/18 05/05/18 05/05/18 08:00 08:22 11:44 Temperature 96.7 F 97.2 F Pulse Rate 56 60 Respiratory 19 20 30 Rate Blood Pressure 179/77 167/53 (mmHg) O2 Sat by Pulse 100 100 Oximetry Oxygen Devices in Use Now: None Appearance: Elderly frail gentleman lying in bed in NAD Eyes: No Scleral Icterus Ears/Nose/Mouth/Throat: Mucous Membranes Moist Neck: Trachea Midline Respiratory: Symmetrical Chest Expansion and Respiratory Effort, Clear to Auscultation Cardiovascular: RRR - Normal S1 and S2 Abdominal: - - Excavated, soft, G tube in place Extremities: No Edema, - - Contracted Skin: - - Vesicular rash on right buttock/hip, with crusts Neurological: - - Eyes are open, non verbal, doesn't follow commands - Nutrition: Malnutrition Diagnosis/Plan Malnutrition Assessment by Registered Dietitian: Malnutrition Assessment Clinical Characteristics Chronic,Severe Malnutrition Assessment: - Severe temporal muscle wasting Criteria - 25% wt loss since 09/2016 ( ~ 1.5 years) - Declined in physiological function - weakness - Underweight statuts, BMI 17.9 Malnutrition Assessment: Recommend 5.5 cans of Jevity 1.2 per day ( during Interventions admission) to provide pt w/ 32 kcals/kg and 1.5 grams of protein/kg. Malnutrition Assessment: Goals 1. Ultimately, adequate nutrition to promote wt repletion and maintain hydration w/o additional undesired wt loss. 2. Nutrition will maintain skin integirty w/o pressure related breakdown. Result Diagrams: 05/04/18 05:40 05/05/18 06:49 Assess/Plan/Problems-Billing Assessment: Mr Chappell is a 78 yo M with PMH of Parkison's, progressive supranuclear palsy, aspiration pneumonia, s/p G-tube, HTN, HLD, restless leg syndrome who presented to ED due to malfunctioning G-tube. - Patient Problems (1) Gastrostomy tube dysfunction Comment: - Initial G-Tube appeared to be extremely eroded and was changed by Dr Santoro - d/w him - no further procedures needed at this time. Will need G- tube change every 6 months and this can be done by [facility]. (2) Severe protein-calorie malnutrition Comment: - Patient has temporal wasting, has lost 25% of his weight since 10/08 , BMI 17.9. - Dietitian input appreciated - continue Jevity 1.2 and free water as recommended. (3) Anemia of chronic disease Comment: - W/o compatible with a combination of iron deficiency (Iron<15, sat 6% ) and AOCD with ferritin >800. - Continue Ferrous sulfate. - Check stool for occult blood. (4) Hyponatremia Comment: - Resolved. - Increase TF to goal as well as water flushes. (5) Progressive supranuclear palsy Comment: - End-stage and irreversible. - Hospice input appreciated - not a candidate for Hospice while on tube feeds. May refer to [facility] if discharged home. (6) HTN (hypertension) Comment: - Continue amlodipine 5 mg daily and monitor BP. (7) Zoster Comment: - Right hip rash suggestive of zoster - continue Acyclovir #5/. (8) DVT prophylaxis Comment: - SCDs in the setting of anemia. (9) DNR (do not resuscitate) Status and Disposition: Inpatient. 40 minutes patient care, > half face to face with patient, pediatric care coordinator , and coordination of care. Daughter is interested in rehab - CM assisting with discharge plan.
[2018-05-05] MEDS: Loperamide LIQ* 2 MG/10 ML UDC G TUBE PRN (13:47)
[2018-05-06 09:05] LABS: EGFR Non-African American 250.3 (>60)
[2018-05-06] MEDS: Ferrous Sulfate LIQ* 300 MG/5 ML UDC PO SCH ×3 (09:11→21:57)
[2018-05-06] MEDS: Potassium Chloride LIQUID* 20 MEQ PACKET PO SCH (09:11)
[2018-05-06] MEDS: Magnesium Oxide TAB* 400 MG PO SCH (09:11)
[2018-05-06] MEDS: amLODIPine TAB* 5 MG PO SCH (09:11)
[2018-05-06] MEDS: Potassium & Sodium Phos 250MG* = 1 PACKET PO SCH ×4 (09:11→21:57)
[2018-05-06] MEDS: Multivitamins ADULT w/MIN LIQ* 15 ML UDC PO SCH (09:13)
[2018-05-06] MEDS: Acyclovir SUSP(*) 200 MG/5 ML UDC G TUBE SCH ×4 (09:13→21:57)
[2018-05-06] MEDS: Acetaminophen ADULT LIQ* 650 MG/20.3 ML UDC G TUBE PRN (09:37)
[2018-05-06 10:37] LABS: Hematocrit 30 % (42-52); Hemoglobin 10.1 g/dl (14.0-18.0)
[2018-05-06] MEDS: Ketorolac TAB * 10 MG TAB PO PRN (13:58)
--- NOTE | 2018-05-06 14:25 | PN ---
Subjective Date of Service: 05/06/18 Interval History: HOSPITALIST PROGRESS NOTE Patient seen and examined at bedside. Care reviewed and d/w Sia Huntley RN. He's non verbal. Aide at bedside states patient is having pain from zoster. Lengthy conversation with daughter (Ms Lydia Chappell [phone]) - she has many concerns about her father's care and condition. We talked about acute and subacute care, tube feeds, rehab, Palliative care. One of her major concerns at this time is his pain and she feels he had responded well to Toradol earlier during this hospital stay. Family History: Unchanged from Admission Social History: Unchanged from Admission Past Medical History: Unchanged from Admission Objective Active Medications: Acetaminophen (Tylenol Adult Liq*) 650 mg G TUBE Q4H PRN PRN Reason: FEVER/PAIN Last Admin: 05/06/18 09:37 Dose: 650 mg Acyclovir (Zovirax Oral Suspension(*)) 800 mg G TUBE QID [facility] Stop: 05/09/18 23:59 Last Admin: 05/06/18 13:57 Dose: 800 mg Amlodipine Besylate (Norvasc Tab*) 5 mg PO DAILY [facility] Last Admin: 05/06/18 09:11 Dose: 5 mg Ferrous Sulfate (Feosol Liq*) 300 mg PO TID [facility] Last Admin: 05/06/18 13:57 Dose: 300 mg Hydralazine HCl (Apresoline Iv*) 5 mg IV SLOW PU Q6H PRN PRN Reason: BLOOD PRESSURE Last Admin: 05/03/18 01:36 Dose: 5 mg Ketorolac Tromethamine (Toradol Tab *) 10 mg PO Q6H PRN PRN Reason: PAIN Last Admin: 05/06/18 13:58 Dose: 10 mg Loperamide HCl (Imodium Liq*) 2 mg G TUBE .SEE ORDER PRN PRN Reason: DIARRHEA Last Admin: 05/05/18 13:47 Dose: 2 mg Magnesium Oxide (Magox 400 Tab*) 400 mg PO DAILY [facility] Last Admin: 05/06/18 09:11 Dose: 400 mg Multivitamins (Theragran W/Minerals Liq*) 15 ml PO DAILY [facility] Last Admin: 05/06/18 09:13 Dose: 15 ml Ondansetron HCl (Zofran Inj*) 4 mg IV Q6H PRN PRN Reason: NAUSEA/VOMITING Potassium Chloride (Klor-Con Liquid*) 20 meq PO DAILY [facility] Last Admin: 05/06/18 09:11 Dose: 20 meq Potassium Phos/Sodium Phos (Neutra Phos 250 Mg Bassem*) 250 mg PO QID [facility] Stop: 05/07/18 17:59 Last Admin: 05/06/18 13:56 Dose: 250 mg Vital Signs - 8 hr 05/06/18 05/06/18 07:55 08:00 Temperature 98.8 F Pulse Rate 60 Respiratory 20 23 Rate Blood Pressure 144/60 (mmHg) O2 Sat by Pulse 100 Oximetry Oxygen Devices in Use Now: None Appearance: Elderly frail gentleman with contracted extremities, sitting on a recliner, in NAD. Eyes: No Scleral Icterus Ears/Nose/Mouth/Throat: Mucous Membranes Moist Neck: Trachea Midline Abdominal: - - Excavated, G-tube in place Neurological: - - Eyes are open, non-verbal - Nutrition: Malnutrition Diagnosis/Plan Malnutrition Assessment by Registered Dietitian: Malnutrition Assessment Clinical Characteristics Chronic,Severe Malnutrition Assessment: - Severe temporal muscle wasting Criteria - 25% wt loss since 09/2016 ( ~ 1.5 years) - Declined in physiological function - weakness - Underweight statuts, BMI 17.9 Malnutrition Assessment: Recommend 5.5 cans of Jevity 1.2 per day ( during Interventions admission) to provide pt w/ 32 kcals/kg and 1.5 grams of protein/kg. Malnutrition Assessment: Goals 1. Ultimately, adequate nutrition to promote wt repletion and maintain hydration w/o additional undesired wt loss. 2. Nutrition will maintain skin integirty w/o pressure related breakdown. Result Diagrams: 05/06/18 10:27 05/06/18 08:38 Assess/Plan/Problems-Billing Assessment: Mr Chappell is a 78 yo M with PMH of Parkison's, progressive supranuclear palsy, aspiration pneumonia, s/p G-tube, HTN, HLD, restless leg syndrome who presented to ED due to malfunctioning G-tube. - Patient Problems (1) Gastrostomy tube dysfunction Comment: - Initial G-Tube appeared to be extremely eroded and was changed by Dr Santoro - d/w him - no further procedures needed at this time. Will need G-tube change every 6 months and this can be done by [facility]. Dr Santoro will contact daughter about G-tube options. (2) Severe protein-calorie malnutrition Comment: - Patient has temporal wasting, has lost 25% of his weight since 10/08 , BMI 17.9. - Dietitian input appreciated - continue Jevity 1.2 and free water as recommended. (3) Anemia of chronic disease Comment: - W/o compatible with a combination of iron deficiency (Iron<15, sat 6% ) and AOCD with ferritin >800. - Continue Ferrous sulfate. - Stool for occult blood is negative. (4) Hyponatremia Comment: - Sodium 130 today - will continue to monitor. - Continue Jevity and water flushes. (5) Progressive supranuclear palsy Comment: - End-stage and irreversible. - Hospice input appreciated - not a candidate for Hospice while on tube feeds. - May refer to [facility] if discharged home. - Lengthy conversation with daughter over the phone today- she is not opposed to Palliative care in terms of keeping h im comfortable, but is interested in Neuro rehab in [place] or in [place] with PT/Speech and swallow with Vitalstim. Not interested in local SNFs she's familiar with. (6) HTN (hypertension) Comment: - Controlled. - Continue amlodipine 5 mg/day. (7) Zoster Comment: - Right hip rash suggestive of zoster - continue Acyclovir #6/7. - Discussed pain management options with patient's daughter - after reviewing R/ B/A we decided to resume Toradol for now, and will continue conversation about opiates. (8) DVT prophylaxis Comment: - SCDs in the setting of anemia. (9) DNR (do not resuscitate) Status and Disposition: Inpatient. 40 minutes patient care, > half face to face with patient, director career , coordination of care and daughter phone call.
--- NOTE | 2018-05-06 22:37 | PRO ---
PROCEDURE REPORT: DATE OF PROCEDURE: 05/06/18 - ROOM #407 DESCRIPTION OF PROCEDURE: Dr. Sheridan called me to say that Mr. Chappell's feeding tube, which was a Phillip catheter that had been replaced a couple days ago, was not going to work out well for the outpatient setting where he is going to be. So, I was able to obtain a 24-Syriac feeding tube and that was readily changed. There was good return and flushed easily and the balloon was inflated with 20 mL of water. He tolerated this well. [id number]/[facility] #: [id number] [facility]
[2018-05-07] MEDS: Potassium Chloride LIQUID* 20 MEQ PACKET PO SCH (09:20)
[2018-05-07] MEDS: Multivitamins ADULT w/MIN LIQ* 15 ML UDC PO SCH (09:20)
[2018-05-07] MEDS: Magnesium Oxide TAB* 400 MG PO SCH (09:20)
[2018-05-07] MEDS: amLODIPine TAB* 5 MG PO SCH (09:20)
[2018-05-07] MEDS: Ferrous Sulfate LIQ* 300 MG/5 ML UDC PO SCH ×3 (09:20→22:15)
[2018-05-07] MEDS: Acyclovir SUSP(*) 200 MG/5 ML UDC G TUBE SCH ×4 (09:20→22:15)
[2018-05-07] MEDS: Potassium & Sodium Phos 250MG* = 1 PACKET PO SCH ×3 (09:21→17:41)
[2018-05-07] MEDS: Acetaminophen ADULT LIQ* 650 MG/20.3 ML UDC G TUBE PRN (13:40)
[2018-05-07] MEDS: Ketorolac TAB * 10 MG TAB PO PRN (13:40)
--- NOTE | 2018-05-07 13:56 | PN ---
Subjective Date of Service: 05/07/18 Interval History: HOSPITALIST PROGRESS NOTE Patient seen and examined at bedside. Care reviewed and d/w Sia Huntley RN. cook relief at bedside states he's doing well today. Pain seems to be under control, tolerating tube feeds well, no N/V/D. Family History: Unchanged from Admission Social History: Unchanged from Admission Past Medical History: Unchanged from Admission Objective Active Medications: Acetaminophen (Tylenol Adult Liq*) 650 mg G TUBE Q4H PRN PRN Reason: FEVER/PAIN Last Admin: 05/07/18 13:40 Dose: 650 mg Acyclovir (Zovirax Oral Suspension(*)) 800 mg G TUBE QID [facility] Stop: 05/09/18 23:59 Last Admin: 05/07/18 13:40 Dose: 800 mg Amlodipine Besylate (Norvasc Tab*) 5 mg PO DAILY [facility] Last Admin: 05/07/18 09:20 Dose: 5 mg Ferrous Sulfate (Feosol Liq*) 300 mg PO TID [facility] Last Admin: 05/07/18 13:40 Dose: 300 mg Hydralazine HCl (Apresoline Iv*) 5 mg IV SLOW PU Q6H PRN PRN Reason: BLOOD PRESSURE Last Admin: 05/03/18 01:36 Dose: 5 mg Ketorolac Tromethamine (Toradol Tab *) 10 mg PO Q6H PRN PRN Reason: PAIN Last Admin: 05/07/18 13:40 Dose: 10 mg Loperamide HCl (Imodium Liq*) 2 mg G TUBE .SEE ORDER PRN PRN Reason: DIARRHEA Last Admin: 05/05/18 13:47 Dose: 2 mg Magnesium Oxide (Magox 400 Tab*) 400 mg PO DAILY [facility] Last Admin: 05/07/18 09:20 Dose: 400 mg Multivitamins (Theragran W/Minerals Liq*) 15 ml PO DAILY [facility] Last Admin: 05/07/18 09:20 Dose: 15 ml Ondansetron HCl (Zofran Inj*) 4 mg IV Q6H PRN PRN Reason: NAUSEA/VOMITING Potassium Chloride (Klor-Con Liquid*) 20 meq PO DAILY [facility] Last Admin: 05/07/18 09:20 Dose: 20 meq Potassium Phos/Sodium Phos (Neutra Phos 250 Mg Bassem*) 250 mg PO QID [facility] Stop: 05/07/18 17:59 Last Admin: 05/07/18 13:40 Dose: 250 mg Selected Entries 05/07/18 04:28 Temperature 97.9 F Pulse Rate 53 Respiratory 24 Rate Blood Pressure 165/75 (mmHg) O2 Sat by Pulse 100 Oximetry Oxygen Devices in Use Now: None Appearance: Elderly frail gentleman lying in bed in NAD Ears/Nose/Mouth/Throat: Mucous Membranes Moist Neck: Trachea Midline Respiratory: Symmetrical Chest Expansion and Respiratory Effort, Clear to Auscultation Cardiovascular: RRR - Normal S1 and S2 Abdominal: - - Excavated, G-tube in place Skin: - - Zoster rash is mostly dried and crusted Neurological: - - Eyes open, non verbal, doesn't follow commands - Nutrition: Malnutrition Diagnosis/Plan Malnutrition Assessment by Registered Dietitian: Malnutrition Assessment Clinical Characteristics Chronic,Severe Malnutrition Assessment: - Severe temporal muscle wasting Criteria - 25% wt loss since 09/2016 ( ~ 1.5 years) - Declined in physiological function - weakness - Underweight statuts, BMI 17.9 Malnutrition Assessment: Recommend 5.5 cans of Jevity 1.2 per day ( during Interventions admission) to provide pt w/ 32 kcals/kg and 1.5 grams of protein/kg. Malnutrition Assessment: Goals 1. Ultimately, adequate nutrition to promote wt repletion and maintain hydration w/o additional undesired wt loss. 2. Nutrition will maintain skin integirty w/o pressure related breakdown. Result Diagrams: 05/06/18 10:27 05/06/18 08:38 Assess/Plan/Problems-Billing Assessment: Mr Chappell is a 78 yo M with PMH of Parkison's, progressive supranuclear palsy, aspiration pneumonia, s/p G-tube, HTN, HLD, restless leg syndrome who presented to ED due to malfunctioning G-tube. - Patient Problems (1) Gastrostomy tube dysfunction Comment: - Initial G-Tube appeared to be extremely eroded and was changed by Dr Santoro again yesterday to a G-tube. - Will need G-tube change every 6 months and this can be done by [facility]. (2) Severe protein-calorie malnutrition Comment: - Patient has temporal wasting, has lost 25% of his weight since 10/08 , BMI 17.9. - Dietitian input appreciated - continue Jevity 1.2 and free water as recommended. (3) Anemia of chronic disease Comment: - W/o compatible with a combination of iron deficiency (Iron<15, sat 6% ) and AOCD with ferritin >800. - Continue Ferrous sulfate. - Stool for occult blood is negative. (4) Hyponatremia Comment: - Sodium 130 yesterday - will continue to monitor. - Continue Jevity and water flushes. (5) Progressive supranuclear palsy Comment: - End-stage and irreversible. - Hospice input appreciated - not a candidate for Hospice while on tube feeds. - May refer to [facility] if discharged home. - Lengthy conversation with daughter over the phone 05/06/18 - she is not opposed to Palliative care in terms of keeping him comfortable, but is interested in Neuro rehab in [place] or in [place] with PT/Speech and swallow with Vitalstim. Not interested in local SNFs she's familiar with. (6) HTN (hypertension) Comment: - Controlled. - Continue amlodipine 5 mg/day. (7) Zoster Comment: - Right hip rash suggestive of zoster - will complete Acyclovir #7/ today. - Continue Toradol PRN pain. (8) DVT prophylaxis Comment: - SCDs in the setting of anemia. (9) DNR (do not resuscitate) Status and Disposition: Inpatient. Patient is medically stable for discharge - awaiting SNF bed availability.
[2018-05-07] MEDS: Loperamide LIQ* 2 MG/10 ML UDC G TUBE PRN ×2 (19:51→22:34)
[2018-05-08] MEDS: Ferrous Sulfate LIQ* 300 MG/5 ML UDC PO SCH ×2 (07:52→14:11)
[2018-05-08] MEDS: Acyclovir SUSP(*) 200 MG/5 ML UDC G TUBE SCH ×2 (09:52→14:10)
[2018-05-08] MEDS: amLODIPine TAB* 5 MG PO SCH (09:53)
[2018-05-08] MEDS: Multivitamins ADULT w/MIN LIQ* 15 ML UDC PO SCH (09:54)
[2018-05-08] MEDS: Magnesium Oxide TAB* 400 MG PO SCH (09:54)
[2018-05-08] MEDS: Potassium Chloride LIQUID* 20 MEQ PACKET PO SCH (09:54)
--- NOTE | 2018-05-08 13:33 | PN ---
Subjective Date of Service: 05/08/18 Interval History: HOSPITALIST PROGRESS NOTE Patient seen and examined at bedside. Care reviewed and d/w Mirian Esquivel RN. Non-verbal. As per animal care taker, he had multiple episodes of diarrhea yesterday, not improved with imodium. Family History: Unchanged from Admission Social History: Unchanged from Admission Past Medical History: Unchanged from Admission Objective Active Medications: Acetaminophen (Tylenol Adult Liq*) 650 mg G TUBE Q4H PRN PRN Reason: FEVER/PAIN Last Admin: 05/07/18 13:40 Dose: 650 mg Acyclovir (Zovirax Oral Suspension(*)) 800 mg G TUBE QID [facility] Stop: 05/09/18 23:59 Last Admin: 05/08/18 09:52 Dose: 800 mg Amlodipine Besylate (Norvasc Tab*) 5 mg PO DAILY [facility] Last Admin: 05/08/18 09:53 Dose: 5 mg Ferrous Sulfate (Feosol Liq*) 300 mg PO TID [facility] Last Admin: 05/08/18 07:52 Dose: 300 mg Hydralazine HCl (Apresoline Iv*) 5 mg IV SLOW PU Q6H PRN PRN Reason: BLOOD PRESSURE Last Admin: 05/03/18 01:36 Dose: 5 mg Ketorolac Tromethamine (Toradol Tab *) 10 mg PO Q6H PRN PRN Reason: PAIN Last Admin: 05/07/18 13:40 Dose: 10 mg Loperamide HCl (Imodium Liq*) 2 mg G TUBE .SEE ORDER PRN PRN Reason: DIARRHEA Last Admin: 05/07/18 22:34 Dose: 2 mg Magnesium Oxide (Magox 400 Tab*) 400 mg PO DAILY [facility] Last Admin: 05/08/18 09:54 Dose: 400 mg Multivitamins (Theragran W/Minerals Liq*) 15 ml PO DAILY [facility] Last Admin: 05/08/18 09:54 Dose: 15 ml Ondansetron HCl (Zofran Inj*) 4 mg IV Q6H PRN PRN Reason: NAUSEA/VOMITING Potassium Chloride (Klor-Con Liquid*) 20 meq PO DAILY [facility] Last Admin: 05/08/18 09:54 Dose: 20 meq Selected Entries 05/08/18 03:22 Temperature 97.3 F Pulse Rate 49 Respiratory 16 Rate Blood Pressure 178/59 (mmHg) O2 Sat by Pulse 100 Oximetry Oxygen Devices in Use Now: None Appearance: Frail elderly gentleman lying in bed in NAD Ears/Nose/Mouth/Throat: Mucous Membranes Moist Neck: Trachea Midline Abdominal: - - G-tube in place Neurological: - - Sleeping - Nutrition: Malnutrition Diagnosis/Plan Malnutrition Assessment by Registered Dietitian: Malnutrition Assessment Clinical Characteristics Chronic,Severe Malnutrition Assessment: - Severe temporal muscle wasting Criteria - 25% wt loss since 09/2016 ( ~ 1.5 years) - Declined in physiological function - weakness - Underweight statuts, BMI 17.9 Malnutrition Assessment: Recommend 5.5 cans of Jevity 1.2 per day ( during Interventions admission) to provide pt w/ 32 kcals/kg and 1.5 grams of protein/kg. Malnutrition Assessment: Goals 1. Ultimately, adequate nutrition to promote wt repletion and maintain hydration w/o additional undesired wt loss. 2. Nutrition will maintain skin integirty w/o pressure related breakdown. Result Diagrams: 05/06/18 10:27 05/08/18 11:42 Assess/Plan/Problems-Billing Assessment: Mr Chappell is a 78 yo M with PMH of Parkison's, progressive supranuclear palsy, aspiration pneumonia, s/p G-tube, HTN, HLD, restless leg syndrome who presented to ED due to malfunctioning G-tube. - Patient Problems (1) Gastrostomy tube dysfunction Comment: - Initial G-Tube appeared to be extremely eroded and was changed by Dr Santoro again yesterday to a G-tube. - Will need G-tube change every 6 months and this can be done by [facility]. (2) Severe protein-calorie malnutrition Comment: - Patient has temporal wasting, has lost 25% of his weight since 10/08 , BMI 17.9. - With diarrhea on Jevity 1.2 - d/w dietitian - it may be secondary to amount of fiber. Recommended switching to Osmolite 1.2 same amounts. (3) Anemia of chronic disease Comment: - W/o compatible with a combination of iron deficiency (Iron<15, sat 6% ) and AOCD with ferritin >800. - Continue Ferrous sulfate. - Stool for occult blood is negative. (4) Hyponatremia Comment: - Sodium 130 yesterday - will continue to monitor. (5) Progressive supranuclear palsy Comment: - End-stage and irreversible. - Hospice input appreciated - not a candidate for Hospice while on tube feeds. - May refer to [facility] if discharged home. - Lengthy conversation with daughter over the phone 05/06/18 - she is not opposed to Palliative care in terms of keeping him comfortable, but is interested in Neuro rehab in [place] or in [place] with PT/Speech and swallow with Vitalstim. Not interested in local SNFs she's familiar with. - He did not pass swallow evaluation and was discharged from PT/OT. (6) HTN (hypertension) Comment: - Probably higher now due to Ketorolac use. - Increase amlodipine to 10 mg/day. (7) Zoster Comment: - Right hip rash suggestive of zoster - completed 7 days of Acyclovir. - Continue Toradol PRN pain. (8) DVT prophylaxis Comment: - SCDs in the setting of anemia. (9) DNR (do not resuscitate) Status and Disposition: Inpatient. Patient is medically stable for discharge - awaiting SNF bed availability. Daughter (Lydia Chappell) called at [phone] and updated.
[2018-05-08] MEDS ORDERED: amLODIPine TAB* 5 MG PO ONE (13:41)
[2018-05-08 14:01] LABS: EGFR Non-African American 201.7 (>60)
[2018-05-08] MEDS: Ketorolac TAB * 10 MG TAB PO PRN (14:20)
[2018-05-08] MEDS: Loperamide LIQ* 2 MG/10 ML UDC G TUBE PRN (16:19)
[2018-05-08] MEDS: traMADol TAB* 50 MG G TUBE PRN (20:25)
[2018-05-08] MEDS: Ferrous Sulfate LIQ* 300 MG/5 ML UDC G TUBE SCH (20:27)
--- NOTE | 2018-05-09 05:59 | PN ---
Hospitalist Progress Note Date of Service: 05/09/18 pt was found to have a stage 2 decubiti size 3.5 cm *0.5 cm at left tuberosity - --> bmp/lipid and prealbumin ordered nutrion consult air matress ordered as well
[2018-05-09] MEDS: Acetaminophen ADULT LIQ* 650 MG/20.3 ML UDC G TUBE PRN (06:33)
[2018-05-09] MEDS: Ferrous Sulfate LIQ* 300 MG/5 ML UDC G TUBE SCH ×2 (08:42→15:40)
[2018-05-09] MEDS ORDERED: amLODIPine TAB* 5 MG PO SCH (09:00)
[2018-05-09] MEDS ORDERED: Potassium Chloride LIQUID* 20 MEQ PACKET G TUBE SCH (09:00)
[2018-05-09] MEDS ORDERED: amLODIPine TAB* 5 MG G TUBE SCH (09:00)
[2018-05-09] MEDS ORDERED: Magnesium Oxide TAB* 400 MG SCH (09:00)
[2018-05-09] MEDS ORDERED: Multivitamins ADULT w/MIN LIQ* 15 ML UDC G TUBE SCH (09:00)
[2018-05-09] MEDS: traMADol TAB* 50 MG G TUBE PRN (11:33)
--- NOTE | 2018-05-09 11:51 | PN ---
Hospitalist Progress Note Date of Service: 05/09/18 HOSPITALIST PROGRESS NOTE Last night events noted. No acute events, but found to have a small left ischial open area. Will continue T&P and protect with Mepilex. Diarrhea is improved with change in formula to Osmolite. Will continue current management. Daughter plans to take him home with [facility] program.
[2018-05-09 17:48] VITALS: BP 138/88
--- NOTE | 2018-05-10 10:02 | DS ---
CC: Dr. Reid DISCHARGE SUMMARY: DATE OF ADMISSION: 05/01/18 DATE OF DISCHARGE: 05/09/18 DISCHARGE DIAGNOSES: 1. Herpes zoster. 2. Severe protein calorie malnutrition. 3. Anemia of chronic disease. 4. Hyponatremia. 5. G-tube dysfunction. SECONDARY DIAGNOSES: 1. Parkinson disease. 2. Progressive supranuclear palsy. 3. History of aspiration pneumonia. 4. Hypertension. 5. Hyperlipidemia. 6. Restless leg syndrome. MEDICATIONS: 1. Acetaminophen 650 mg via G-tube q.4 hours p.r.n. pain or fever. 2. Acetaminophen suppository 650 mg per rectum q.6 hours p.r.n. pain or fever. 3. Amlodipine 10 mg via G-tube daily. 4. Ferrous sulfate liquid 300 mg via G-tube t.i.d. 5. Ibuprofen liquid 600 mg p.o. t.i.d. as needed for pain. 6. Loperamide 2 mg via G-tube after each diarrhea bowel movement, maximum 8 mg a day. 7. Multivitamin 15 mL via G-tube daily. 8. Tramadol 50 mg via G-tube q.6 hours p.r.n. pain, MDD 200 mg. HOSPITAL COURSE: Mr. Chappell is a 78-year-old male with a past medical history stated above that pres ented to the emergency room on 05/01/18 with concerns for a leaking G-tube. It was still his origina l G-tube placed 2 years ago when he had broken. She also stated that the patient was complaining of more pain and he was found to have a rash extending from his right buttock down to his hip and thigh and also low grade temperature. For more details about the presentation, I refer you to his history and physical. The patient was found to have herpes zoster and was started on acyclovir and he was admitted, so we c ould manage his G-tube malfunction. The patient was seen in consultation by Dr. Santoro and he placed a Phillip catheter that was later on c hanged to a regular G-tube and the plan is for it to be exchanged every 6 months and this can be done at [facility]. The patient was also found to have severe protein calorie malnutrition with temporal wasting on physi vaishnavi examination, 25% weight loss since September 2016 with a BMI of 17.9. He was started on Jevity but dev eloped diarrhea and this has now been changed to Osmolite 1.2 and he appears to be tolerating it well . His daughter has interest in other diets including Liquid Hope and his PCP can make arrangements t o change his diet as outpatient. The patient had electrolyte abnormalities, especially hyponatremia, and this is improved. He was found to have mixed anemia compatible with iron deficiency plus anemia of chronic disease. Th ere were no signs of active bleeding and stool for occult blood was negative. Iron supplementation w as started. For his zoster, he received 7 days of acyclovir and now his pain is controlled with tramadol. He also developed a 3 x 1.5 cm open area below the left ischial tuberosity. The patient had a decubi tus in the area before and it had healed, but now appears to be opening up again. One of the issues is that he cannot tolerate being on his right side for a long time due to pain secondary to his zoste r and that in combination with his severe protein calorie malnutrition does make him prone for worsen ing of the wound. His family was advised about pressure relief and they are aware of the other measu res that should be implemented at home to avoid progression. The patient's daughter is clear of which pathway to choose on her father's care. He was seen in consu ltation by hospice (Dr. Salazar) and the impression is that [place] and he is not a candidate for hospice services as long as he continues to get G-tube feedi ngs. It was felt that if the patient is discharged home, the AIM (advanced illness management) progr am through [facility] would be a good option for them. Initially the daughter was clear that she was not interested in hospice care and she wanted her fathe r to go to a specific neurological rehab in [place] or in [place]. When she noticed that that would probably not be possible, then she considered the possibility of comfort care but even after mu ltiple conversations, it is still not clear to me what her plans are. She appears to be experiencing medical chief technician fatigue and would benefit of further conversations with his primary care provider to come up with a plan that would address this patient's needs. At this point, he is medically stable for discharge to continue receiving his care at home with his daughter and aide and to be enrolled on the [facility] AIM program. If he continues to decline, I believe h is daughter would be amenable to stopping his tube feeds and transitioning him to hospice care. While in the hospital, the patient was seen by Speech Therapy and did not pass swallow evaluation due to severe oropharyngeal dysphagia. He was also seen by OT and PT and deemed not to be a candidate f or rehab at this time. PHYSICAL EXAMINATION: Vital Signs: Temperature 98.0, heart rate is 59, respiratory rate is 20, oxyg en saturation is 98% on room air, blood pressure is 138/88. General: The patient is an elderly gent matty lying in bed in no acute distress. CVS: Normal S1, S2. Regular rate and rhythm. Chest: Naya ath sounds bilaterally with no added sounds. Neuro: Eyes are opened. The patient does not follow c ommands. DIET: Osmolite 1.2 one can every 4 hours x6 cans a day with 100 mL free water flush after each can. ACTIVITIES: As tolerated. DISPOSITION: Home. STATUS WHILE IN THE HOSPITAL: Inpatient. Please keep in mind this is a summarized version of this patient's hospital stay. If you need more in formation, please feel free to call me at [phone] or please obtain full medical records. TIME SPENT: Approximately 45 minutes were spent to complete this discharge. [id number]/[facility] #: [id number]
== END 2018-05-09 16:45 | disposition home health service (06) | DRG 393 ==
LOC: ED 16:49 → MED 22:03
PROVIDERS: ADMIT Internal Medicine; ATTEND Internal Medicine
PROC: 0D2DXUZ Change Feeding Device in Lower Intestinal Tract, External Approach (ICD-10-PCS; principal; 2018-05-02)
PROC: 0D2DXUZ Change Feeding Device in Lower Intestinal Tract, External Approach (ICD-10-PCS; 2018-05-06)
DX: K94.23 Gastrostomy malfunction (principal); E43 Unspecified severe protein-calorie malnutrition; G23.1 Progressive supranuclear ophthalmoplegia [Steele-Richardson-Olszewski]; E87.1 Hypo-osmolality and hyponatremia; R64 Cachexia; Z68.1 Body mass index [BMI] 19.9 or less, adult; I45.2 Bifascicular block; L89.222 Pressure ulcer of left hip, stage 2; E86.0 Dehydration; G20 Parkinson's disease; B02.9 Zoster without complications; F02.80 Dementia in other diseases classified elsewhere, unspecified severity, without behavioral disturbance, psychotic disturbance, mood disturbance, and anxiety; D63.8 Anemia in other chronic diseases classified elsewhere; G25.81 Restless legs syndrome; E78.5 Hyperlipidemia, unspecified; I10 Essential (primary) hypertension; R62.7 Adult failure to thrive; Z66 Do not resuscitate; D50.9 Iron deficiency anemia, unspecified; Z82.49 Family history of ischemic heart disease and other diseases of the circulatory system
CPT/HCPCS: 36415; 71045; 80048; 80053; 81003; 81015; 82272; 82607; 82728; 82746; 83540; 83550; 83605; 83735; 84100; 84443; 84484; 85014; 85018; 85025; 86850; 86900; 86901; 93005; 99285; A9270-GY; G8978-GP-CN; G8979-GP-CM; G8979-GP-CN; G8980-GP-CN; G8987-GO-CM; G8988-GO-CM; G8989-GO-CM; J0360; J1644; J1885; J3475